=== PATIENT | male | born 1955 | race Caucasian/White ===

== ENCOUNTER 2021-04-18 07:47 | Outpatient (CLI) | payer MEDICARE, SELFPAY ==
--- NOTE | 2021-04-18 16:05 | WPDPFTINT ---
PFT Procedure Performed PFT Procedure Performed Spirometry with Pre/Post Bronchodilator Plethysmography (Lung Vol) Diffusing Cap (DLCO) Flow Vol Loop PFT Interpretation This is a pulmonary function test with pre and post-bronchodilator spirometry, plethysmography and diffusing capacity. The test was performed and results interpreted in accordance with the 2019 and 2005 ATS/ERS Task Force guidelines respectively using the Global Lung Function Initiative-2012 reference equations. Patient demonstrated good effort and cooperation. Reproducibility criteria were met. The quality of the pre bronchodilator spirometry maneuver was Grade A and post bronchodilator spirometry maneuver was Grade A. Findings: Spirometry: there is decreased maximal expiratory airflow at all lung volumes with concave expiratory flow tracing. The contour the inspiratory flow tracing is normal. The pre bronchodilator FVC is 3.29 L, 70% predicted. The pre bronchodilator FEV1 is 1.43 L, 40% predicted. The FEV1: FVC ratio is 43%. The post bronchodilator FVC is 3.30 L, representing no change. The post bronchodilator FEV1 is 1.56 L, representing a 10% increase. The post bronchodilator FEV1: FVC ratio is 47%. Plethysmography: The total lung capacity is 7.92 L, 107% predicted. Functional residual capacity is 4.77 L, 121% predicted. The residual volume is 4.63 L, 185% predicted. Diffusion capacity: The absolute diffusion capacity is 19.1, 69% predicted. The diffusing capacity corrected for alveolar volume is 3.88, 99% predicted. Impression: There is a severe obstructive abnormality without significant improvement after inhaling a single dose of albuterol. The increase in residual volume is consistent with air trapping from an obstructive abnormality. The absolute diffusing capacity is moderately decreased and normalizes when corrected for alveolar volume. Impression: There is a moderately severe restrictive ventilatory abnormality. The spirometry is normal without evidence of an obstructive abnormality. There is no significant improvement after inhaling a single dose of albuterol. The absolute diffusing capacity is mildly decreased and normalizes when corrected for alveolar volume. There are no prior studies for comparison
== END 2021-04-18 07:48 | disposition home or self-care (01) ==
LOC: ANHPFT 07:52
PROVIDERS: PCP Family Medicine; Visit Provider Nurse Practitioner Family
DX: J44.9 Chronic obstructive pulmonary disease, unspecified (principal); R94.2 Abnormal results of pulmonary function studies
CPT/HCPCS: 94060; 94726; 94729

== ENCOUNTER 2022-05-05 15:18 | Outpatient (CLI) | payer MEDICARE, SELFPAY ==
--- NOTE | ~2022-05-05 | CT_ITS ---
EXAMINATION: CTA chest PE protocol DATE: 05/05/2022 15:49 INDICATION: Shortness of breath TECHNIQUE: Computed tomography angiography (CTA) of the chest was performed with 100 mL Omnipaque-350 intravenous contrast timed to evaluate the pulmonary arteries. Coronal maximum intensity projection 3D-reconstructions were created by the technologist. Automated exposure control and iterative reconst ruction technique were employed. Exam dose: 438.93 mGy-cm total exam DLP. COMPARISON: None. FINDINGS: There is moderate contrast opacification of the pulmonary arteries and no evidence of pulmo nary embolism. Cardiomegaly. No pericardial effusion. There bilateral pleural effusions, moderate on the right, mild on the left. There is some pleural flu id in the minor and right greater fissure. There is compressive atelectasis primarily involving the l ower lobes, right greater than left. The ascending thoracic aorta measures up to 4.6 cm diameter, mid aortic arch 3.1 cm diameter, descend ing thoracic aorta 3 cm diameter. No enlarged hilar or mediastinal lymph nodes. There are calcified right hilar and subcarinal nodes an d right lower lobe calcified pulmonary granuloma, consistent with old pulmonary granulomatous disease . Multiple old healed right rib fractures. Likely old compression fracture deformities of the thoracic spine. Degenerative disc disease of the l ower cervical spine, diffuse idiopathic skeletal hyperostosis of the thoracic spine. IMPRESSION: No evidence of pulmonary embolism Congestive heart failure, bilateral pleural effusions, pulmonary interlobular septal prominence, cons istent with pulmonary edema Bilateral lower lobe compressive atelectasis, right greater than left Thoracic aortic aneurysm Probable old compression fractures of the thoracic spine. Multiple old right rib fractures Degenerative changes of cervical, thoracic and lumbar spine. Reviewed, dictated and finalized at [facility]. Reviewed, dictated and finalized at location B. [facility] IMPRESSION: No evidence of pulmonary embolism Congestive heart failure, bilateral pleural effusions, pulmonary interlobular s eptal prominence, consistent with pulmonary edema Bilateral lower lobe compressive atelectasis, right greater than left Thoracic aortic aneurysm Probable old compression fractures of the thoracic spine. Multiple old right ri b fractures Degenerative changes of cervical, thoracic and lumbar spine.
[2022-05-05 15:39] LABS: Estimated Glomerular Filt Rate > 60
== END 2022-05-05 15:19 | disposition home or self-care (01) ==
LOC: ANHIMG 15:19
PROVIDERS: PCP Family Medicine; Visit Provider Nurse Practitioner Family
DX: R06.02 Shortness of breath (principal); I71.20 Thoracic aortic aneurysm, without rupture, unspecified; I50.9 Heart failure, unspecified
CPT/HCPCS: 71275; Q9967

== ENCOUNTER 2023-03-04 14:34 | Outpatient (CLI) | payer MEDICARE, SELFPAY ==
[2023-03-04 16:25] LABS: Hematocrit 37.2 % (42.0-52.0); Hemoglobin 11.7 g/dL (14.0-18.0); Mean Corpuscular HGB Conc 31.5 g/dl (32-36); Mean Corpuscular Hemoglobin 29.3 pg (26-34); Mean Corpuscular Volume 93.2 fl (80-100); Mean Platelet Volume 9.7 fl (7.4-10.4); Platelet Count Result 493 k/mm3 (150-375); Red Blood Count 3.99 M/mm3 (4.6-6.20); White Blood Count 9.2 K/mm3 (4.5-10.0)
[2023-03-04 17:07] LABS: Erythrocyte Sedimentation Rate 57 mm/hr (0-20)
[2023-03-04 17:26] LABS: Alanine Aminotransferase 12 U/L (6-50); Albumin Level 2.6 g/dL (3.5-5.1); Alkaline Phosphatase 78 U/L (38-126); Anion Gap 3 mmol/L (8-16); Aspartate Amino Transferase 25 U/L (17-59); Bilirubin,Total 0.5 mg/dL (0.2-1.3); Blood Urea Nitrogen 10 mg/dL (9-20); CRP 8.2 mg/dL (<1.0); Calcium 7.7 mg/dL (8.4-10.2); Carbon Dioxide 30 mmol/L (22-30); Chloride 101 mmol/L (98-107); Estimated Glomerular Filt Rate > 60; Glucose 113 mg/dL (65-110); Potassium 3.8 mmol/L (3.4-5.0); Sodium 134 mmol/L (137-145)
[2023-03-04 17:56] LABS: Hepatitis B Surface Anti Res Negative
[2023-03-04 18:00] LABS: Carcinoembryonic Antigen 6.3 ng/mL (0.0-3.0)
[2023-03-04 18:38] LABS: Folic Acid 7.5 ng/mL (2.76->20)
[2023-03-09 02:56] LABS: Hepatitis A Antibody Total Nonreactive (Nonreactive)
[2023-03-09 09:15] LABS: Alpha-1-Antitrypsin, QN >300 mg/dL (83-199); Ceruloplasmin 36 mg/dL (18-36)
[2023-03-09 14:49] LABS: CA 19-9 9 U/mL (<34)
[2023-03-09 21:48] LABS: LKM 1 Antibody <=20.0 U (<=20.0)
[2023-03-11 11:56] LABS: Actin Antibody (IgG) <20 U (<20)
[2023-03-11 15:43] LABS: Alpha Fetoprotein Tumor Marker 1.7 ng/mL (<6.1)
[2023-03-11 23:36] LABS: ALT 6 U/L (9-46); Alpha-2-Macroglobulin 243 mg/dL (106-279); Apolipoprotein A1 111 mg/dL (94-176); Fibrosis Score 0.19; Fibrosis Stage F0; GGT 12 U/L (3-70); Haptoglobin 439 mg/dL (43-212); Necroinflammat Act Grade A0; Total Bilirubin 0.3 mg/dL (0.2-1.2)
[2023-03-12 10:52] LABS: Mitochondrial (M2) Ab (IgG) 20.4 U (<=20.0)
== END 2023-03-04 14:35 | disposition home or self-care (01) ==
PROVIDERS: PCP Family Medicine; Visit Provider Nurse Practitioner
DX: D47.2 Monoclonal gammopathy (principal); F10.10 Alcohol abuse, uncomplicated; I50.9 Heart failure, unspecified; K66.8 Other specified disorders of peritoneum; M62.50 Muscle wasting and atrophy, not elsewhere classified, unspecified site; R16.0 Hepatomegaly, not elsewhere classified; R18.8 Other ascites; R26.89 Other abnormalities of gait and mobility; K74.60 Unspecified cirrhosis of liver
CPT/HCPCS: 36415; 80053; 81596; 82103; 82105; 82378; 82390; 82607; 82728; 82746; 83520; 85027; 85652; 86038; 86140; 86301; 86364; 86376; 86706; 86708

== ENCOUNTER 2023-05-19 02:48 | Day surgery (SDC) | payer MEDICARE, SELFPAY ==
[2023-05-12 14:08] VITALS: BMI 19.2
--- NOTE | 2023-05-17 09:32 | SUR.PREOP ---
Patient called regarding upcoming procedure. Patient in an appointment and will call back.
--- NOTE | 2023-05-17 10:26 | SUR.PREOP ---
Patient called regarding upcoming procedure. Spoke spouse and reviewed preop instructions, appointment times, and procedure prep.
[2023-05-19 09:44] VITALS: BP 123/73; PULSE 59; RESP 18; TEMP 36.5; O2SAT 100
[2023-05-19] MEDS: LACTATED RINGERS 1,000 ML 150 ML IV CONT (09:54)
--- NOTE | 2023-05-19 10:25 | WPDANESEPPF ---
Anes - Initial Pre Proc Eval Procedure: Operation Date: 05/19/23 11:00 Proposed Procedures p Esophagogastroduodenoscopy - Gary Thomason MD Date/Time: 05/19/23 10:25 Surgeon: Gary Thomason MD Pre Op Diagnosis: cirrhosis of liver,Alcohol abuse,Heart failure Patient Data Age: 68 Gender: M Height: 1.83 m Weight: 67.2 kg Last Vital Signs Temp 36.5 C 05/19/23 09:44 Pulse 59 L 05/19/23 09:44 Resp 18 05/19/23 09:44 BP 123/73 05/19/23 09:44 Pulse Ox 100 05/19/23 09:44 O2 Del Method Room Air 05/19/23 09:44 Allergies Allergy/AdvReac Type Severity Reaction Status Date / Time No Known Allergies Allergy Verified 05/19/23 09:43 Home Medications Medication Instructions Recorded Confirmed Type rivaroxaban 20 mg tablet (Xarelto) 20 mg PO DAILY #30 tabs 06/18/22 05/19/23 Rx albuterol sulfate 90 mcg/actuation See Rx Instructions .Route 07/20/22 05/12/23 Rx aerosol inhaler .COMPLEX #8.5 ea amiodarone 200 mg tablet 200 mg PO DAILY 08/13/22 05/12/23 History budesonide 160 mcg-glycopyr 9 2 inh inhalation BID #10.7 grams 08/27/22 05/12/23 Rx mcg-formot 4.8 mcg/actuation HFA inhaler (Breztri Aerosphere) spironolactone 100 mg tablet 100 mg PO DAILY #30 tabs 03/04/23 05/12/23 Rx (Aldactone) atorvastatin 40 mg tablet 40 mg PO DAILY #90 tabs 04/23/23 05/12/23 Rx baclofen 5 mg tablet 5 mg PO QHS #30 tabs 04/27/23 05/12/23 Rx bupropion HCl 150 mg 24 hr tablet, See Rx Instructions .Route 04/27/23 05/12/23 Rx extended release .COMPLEX #180 tabs pantoprazole 40 mg tablet,delayed 40 mg PO DAILY 04/27/23 05/12/23 History release sulfamethoxazole 800 1 tablet PO DAILY 04/27/23 05/12/23 History mg-trimethoprim 160 mg tablet linaclotide 145 mcg capsule 145 mcg PO DAILY #30 caps 04/29/23 05/12/23 Rx (Linzess) sertraline 50 mg tablet See Rx Instructions .Route 04/29/23 05/12/23 Rx .COMPLEX #90 tabs midodrine 10 mg tablet 10 mg PO TID #90 tabs 05/03/23 05/12/23 Rx furosemide 20 mg tablet 20 mg PO DAILY 05/12/23 05/12/23 History hydrocodone 5 mg-acetaminophen 325 1 tablet PO Q8H pain 05/12/23 05/12/23 History mg tablet levothyroxine 25 mcg tablet 25 mcg PO DAILY 05/12/23 05/12/23 History thiamine HCl (vitamin B1) 100 mg 100 mg PO DAILY 05/12/23 05/12/23 History tablet Patient hx anesthesia problems: none Family hx anesthesia problems: none Results Review: All pre-operative results and documents have been reviewed as part of the pre-operative evaluation. [facility] Past Medical History Medical History Achilles tendonitis Arthritis Ascites Bibasilar crackles BMI (body mass index) 20.0-29.9 BMI 26.0-26.9,adult BMI 27.0-27.9,adult Closed left hip fracture COPD (chronic obstructive pulmonary disease) Elevated CEA Fracture of left hip History of cardioversion Liver mass Mass of omentum Muscle atrophy Narcotic bowel syndrome PVD (peripheral vascular disease) Surgical History Surgical History History of abdominal paracentesis Family History Family History Father Mother No problems noted. Sibling Epilepsy Social History Social History Smoking packs per day: 0.5 Smoking cigarettes per day: 10.0 Years smoked: 50 Smoking pack-years: 25.00 Smoking status: Current every day smoker Tobacco type: cigarettes Second hand tobacco smoke exposure: Yes Alcohol intake: current Drinks per week: 6 Alcohol use details: 6 PK OR MORE A DAY Substance use: current Substance use type: does not use Other substance usage details: edibles Lack of Transportation: No Lack of Food: Never True Current Housing: I Have Housing Concerned About Future Housing: No Difficulty Paying Gas/Electric
--- NOTE | 2023-05-19 10:37 | WPDHPUPDATE1 ---
History and Physical Update Update Date/Time: 05/19/23 10:37 History and Physical has been reviewed, including an updated exam of the patient. There are NO changes in the patient's condition. Risks, benefits, and alternatives have been discussed and questions answered. Patient agrees to proceed with procedure.
[2023-05-19 10:59] VITALS: BP 108/74; PULSE 61; RESP 17; O2SAT 100
[2023-05-19 11:09] VITALS: BP 113/77; PULSE 60; RESP 14; O2SAT 100
[2023-05-19 11:19] VITALS: BP 107/68; PULSE 60; RESP 15; O2SAT 100
== END 2023-05-19 11:20 | disposition home or self-care (01) ==
PROVIDERS: PCP Family Medicine; Visit Provider Internal Medicine Gastroenterology
PROC: 0DJ08ZZ Inspection of Upper Intestinal Tract, Via Natural or Artificial Opening Endoscopic (ICD-10-PCS; CPT 43235; principal; 2023-05-19 11:00)
DX: K74.60 Unspecified cirrhosis of liver (principal); F10.10 Alcohol abuse, uncomplicated; I50.9 Heart failure, unspecified; K21.9 Gastro-esophageal reflux disease without esophagitis; D64.89 Other specified anemias; I48.91 Unspecified atrial fibrillation; K63.89 Other specified diseases of intestine; K59.00 Constipation, unspecified; J44.9 Chronic obstructive pulmonary disease, unspecified; F17.210 Nicotine dependence, cigarettes, uncomplicated; I27.20 Pulmonary hypertension, unspecified; Z79.01 Long term (current) use of anticoagulants; Z79.51 Long term (current) use of inhaled steroids; Z79.891 Long term (current) use of opiate analgesic; Z86.79 Personal history of other diseases of the circulatory system; Z85.89 Personal history of malignant neoplasm of other organs and systems
CPT/HCPCS: 43235; J2704; J7120

== ENCOUNTER 2023-05-25 14:24 | Outpatient (CLI) | payer MEDICARE, SELFPAY ==
[2023-05-25 15:07] LABS: Basophils Absolute Auto 0.1 K/mm3 (0.0-0.1); Basophils Percent Auto 0.7 % (0.2-1.2); Eosinophils Absolute Auto 0.1 K/mm3 (0-0.3); Eosinophils Percent Auto 1.5 % (0-4.4); Hematocrit 39.3 % (42.0-52.0); Hemoglobin 12.6 g/dL (14.0-18.0); Immature Granulocyte Absolute 0.04 K/mm3 (0.00-0.031); Immature Granulocyte Percent A 0.5 % (0-0.5); Lymphocytes Absolute Auto 1.73 K/mm3 (0.9-3.2); Lymphocytes Percent Auto 20.9 % (18.3-44.2); Mean Corpuscular HGB Conc 32.1 g/dl (32-36); Mean Corpuscular Hemoglobin 30.9 pg (26-34); Mean Corpuscular Volume 96.3 fl (80-100); Mean Platelet Volume 9.7 fl (7.4-10.4); Monocytes Absolute Auto 1.1 K/mm3 (0.1-0.6); Monocytes Percent Auto 12.9 % (2.6-8.5); Neutrophils Absolute Auto 5.3 K/mm3 (1.3-6.7); Neutrophils Percent Auto 63.5 % (45.5-73.1); Platelet Count Result 461 k/mm3 (150-375); Red Blood Count 4.08 M/mm3 (4.6-6.20); Red Cell Distribution Width 18.2 % (11.5-14.5); White Blood Count 8.3 K/mm3 (4.5-10.0)
[2023-05-25 15:17] LABS: Alanine Aminotransferase 17 U/L (6-50); Albumin Level 3.1 g/dL (3.5-5.1); Alkaline Phosphatase 85 U/L (38-126); Amylase 102 U/L (30-110); Anion Gap 7 mmol/L (8-16); Aspartate Amino Transferase 28 U/L (17-59); Bilirubin,Total 0.3 mg/dL (0.2-1.3); Blood Urea Nitrogen 22 mg/dL (9-20); Calcium 8.6 mg/dL (8.4-10.2); Carbon Dioxide 27 mmol/L (22-30); Chloride 100 mmol/L (98-107); Estimated Glomerular Filt Rate > 60; Glucose 81 mg/dL (65-110); Lipase 83 U/L (23-300); Potassium 4.2 mmol/L (3.4-5.0); Sodium 134 mmol/L (137-145)
[2023-05-25 15:52] LABS: Prostate Specific Antigen 0.1 ng/mL (< OR = 4.0)
== END 2023-05-25 14:25 | disposition home or self-care (01) ==
PROVIDERS: PCP Family Medicine; Visit Provider Nurse Practitioner Family
DX: Z12.5 Encounter for screening for malignant neoplasm of prostate (principal); E03.9 Hypothyroidism, unspecified; K74.60 Unspecified cirrhosis of liver; Z68.29 Body mass index [BMI] 29.0-29.9, adult; Z09 Encounter for follow-up examination after completed treatment for conditions other than malignant neoplasm
CPT/HCPCS: 36415; 80053; 82150; 83690; 84153; 84436; 84443; 85025; G0103

== ENCOUNTER 2023-07-23 15:00 | Outpatient (CLI) | payer MEDICARE, SELFPAY ==
[2023-07-23 16:50] LABS: T4 Thyroxine 9.21 ug/dL (5.53-11.0)
[2023-07-23 20:33] LABS: Anion Gap 1 mmol/L (8-16); Blood Urea Nitrogen 33 mg/dL (9-20); Calcium 8.2 mg/dL (8.4-10.2); Carbon Dioxide 26 mmol/L (22-30); Chloride 102 mmol/L (98-107); Estimated Glomerular Filt Rate > 60; Glucose 82 mg/dL (65-110); Potassium 4.4 mmol/L (3.4-5.0); Sodium 129 mmol/L (137-145)
== END 2023-07-23 15:01 | disposition home or self-care (01) ==
PROVIDERS: PCP Family Medicine; Visit Provider Nurse Practitioner Family
DX: E03.9 Hypothyroidism, unspecified (principal); E87.1 Hypo-osmolality and hyponatremia; I10 Essential (primary) hypertension
CPT/HCPCS: 36415; 80048; 84436; 84443

== ENCOUNTER 2023-09-21 08:36 | Outpatient (CLI) | payer MEDICARE, SELFPAY ==
--- NOTE | ~2023-09-21 | US_ITS ---
US right upper quadrant INDICATION: Cirrhosis PROCEDURE: Realtime right upper abdominal ultrasound. COMPARISON: No prior studies for comparison. FINDINGS: The pancreas is normal without focal mass or pancreatic ductal dilation. Liver echotexture is heterogeneous. There is nodular surface, compatible with cirrhosis. There is ascites. There is ri ght pleural effusion. No focal hepatic mass is seen. Gallbladder is contracted limiting evaluation fo r stones. There is normal directional flow in the portal vein. The gallbladder is normal without stones, gallbladder wall thickening or pericholecystic fluid. Comm on bile duct measures 3 mm. No sonographic Rangel's sign. IMPRESSION: 1: Cirrhosis of the liver. 2: Ascites. 3: Right pleural effusion. Reviewed, dictated and finalized at location B.
[2023-09-21 09:54] LABS: Albumin Level 3.1 g/dL (3.5-5.1)
== END 2023-09-21 08:37 | disposition home or self-care (01) ==
PROVIDERS: Nurse Practitioner Family; PCP Family Medicine; Visit Provider Internal Medicine Gastroenterology
DX: K74.60 Unspecified cirrhosis of liver (principal); R18.8 Other ascites; F10.10 Alcohol abuse, uncomplicated; I50.9 Heart failure, unspecified; J90 Pleural effusion, not elsewhere classified
CPT/HCPCS: 36415; 76705; 82040

== ENCOUNTER 2023-09-24 09:13 | Outpatient (CLI) | payer MEDICARE, SELFPAY ==
--- NOTE | ~2023-09-24 | US_ITS ---
EXAMINATION: US paracentesis abd w/image DATE: 09/24/2023 11:21 INDICATION: Ascites. TECHNIQUE: The procedure and its risks, benefits, and alternatives were discussed with the patient. P otential risks discussed included bleeding and infection. The skin was prepped and draped in sterile fashion. 1% lidocaine was used for local anesthesia. Under ultrasound guidance, a 5 Fr catheter with trochar was advanced into the ascites in the right lower quadrant. Fluid was aspirated. The catheter was removed, and a dressing was applied. There were no immediate complications. FINDINGS: Ultrasound images demonstrate ascites and the catheter within the fluid. IMPRESSION: 1. Successful ultrasound-guided paracentesis yielding right mL of 2750 fluid. Reviewed, dictated and finalized at location A.
[2023-09-24 10:04] LABS: Hematocrit 43.1 % (42.0-52.0); Hemoglobin 13.8 g/dL (14.0-18.0); Mean Corpuscular Hemoglobin 30.2 pg (26-34); Mean Corpuscular Volume 94.3 fl (80-100); Mean Platelet Volume 10.2 fl (7.4-10.4); Platelet Count Result 445 k/mm3 (150-375); Red Blood Count 4.57 M/mm3 (4.6-6.20); Red Cell Distribution Width 14.9 % (11.5-14.5); White Blood Count 10.8 K/mm3 (4.5-10.0)
[2023-09-24 10:15] LABS: Alanine Aminotransferase 19 U/L (6-50); Albumin Level 3.1 g/dL (3.5-5.1); Alkaline Phosphatase 95 U/L (38-126); Anion Gap 1 mmol/L (4-12); Aspartate Amino Transferase 33 U/L (17-59); Bilirubin,Total 0.3 mg/dL (0.2-1.3); Blood Urea Nitrogen 33 mg/dL (9-20); Calcium 8.8 mg/dL (8.4-10.2); Carbon Dioxide 29 mmol/L (22-30); Chloride 106 mmol/L (98-107); Estimated Glomerular Filt Rate > 60; Glucose 105 mg/dL (65-110); Potassium 5.2 mmol/L (3.4-5.0); Sodium 136 mmol/L (137-145)
[2023-09-24 10:18] LABS: INR 0.9; Prothrombin Time 12.7 Seconds (11.1-14.7)
== END 2023-09-24 09:14 | disposition home or self-care (01) ==
PROVIDERS: PCP Family Medicine; Visit Provider Internal Medicine Gastroenterology
DX: K74.60 Unspecified cirrhosis of liver (principal); F10.10 Alcohol abuse, uncomplicated; I50.9 Heart failure, unspecified; Z68.29 Body mass index [BMI] 29.0-29.9, adult; R18.8 Other ascites
CPT/HCPCS: 36415; 49083; 80053; 85027; 85610

== ENCOUNTER 2024-01-14 14:54 | Outpatient (CLI) | payer MEDICARE, SELFPAY ==
[2024-01-14 15:27] LABS: Basophils Absolute Auto 0.1 K/mm3 (0.0-0.1); Basophils Percent Auto 0.6 % (0.2-1.2); Eosinophils Absolute Auto 0.4 K/mm3 (0-0.3); Eosinophils Percent Auto 2.1 % (0-4.4); Hematocrit 43.6 % (42.0-52.0); Hemoglobin 14.3 g/dL (14.0-18.0); Immature Granulocyte Absolute 0.22 K/mm3 (0.00-0.031); Immature Granulocyte Percent A 1.3 % (0-0.5); Lymphocytes Absolute Auto 1.51 K/mm3 (0.9-3.2); Lymphocytes Percent Auto 8.6 % (18.3-44.2); Mean Corpuscular HGB Conc 32.8 g/dl (32-36); Mean Corpuscular Hemoglobin 29.8 pg (26-34); Mean Corpuscular Volume 90.8 fl (80-100); Mean Platelet Volume 9.5 fl (7.4-10.4); Monocytes Absolute Auto 1.5 K/mm3 (0.1-0.6); Monocytes Percent Auto 8.8 % (2.6-8.5); Neutrophils Absolute Auto 13.8 K/mm3 (1.3-6.7); Neutrophils Percent Auto 78.6 % (45.5-73.1); Platelet Count Result 523 k/mm3 (150-375); Red Cell Distribution Width 15.5 % (11.5-14.5); White Blood Count 17.5 K/mm3 (4.5-10.0)
[2024-01-14 15:38] LABS: Alanine Aminotransferase 18 U/L (6-50); Albumin Level 3.2 g/dL (3.5-5.1); Alkaline Phosphatase 91 U/L (38-126); Anion Gap 4 mmol/L (4-12); Aspartate Amino Transferase 29 U/L (17-59); Bilirubin,Total 0.2 mg/dL (0.2-1.3); Blood Urea Nitrogen 27 mg/dL (9-20); Calcium 8.6 mg/dL (8.4-10.2); Carbon Dioxide 29 mmol/L (22-30); Chloride 103 mmol/L (98-107); Estimated Glomerular Filt Rate > 60; Glucose 115 mg/dL (65-110); Potassium 4.3 mmol/L (3.4-5.0); Sodium 136 mmol/L (137-145)
[2024-01-14 16:11] LABS: Free T4 Free Thyroxine 1.63 ng/mL (0.78-2.19); Vitamin D 25 Hydroxy 18.8 ng/mL
[2024-01-14 16:34] LABS: Vitamin B12 > 1000.0 pg/mL (239-931)
== END 2024-01-14 14:55 | disposition home or self-care (01) ==
LOC: ANHLAB 14:58
PROVIDERS: PCP Family Medicine; Visit Provider Physician Assistant Medical
DX: E03.9 Hypothyroidism, unspecified (principal); E55.9 Vitamin D deficiency, unspecified; E87.1 Hypo-osmolality and hyponatremia; F10.10 Alcohol abuse, uncomplicated
CPT/HCPCS: 36415; 80053; 82306; 82607; 84439; 84443; 85025

== ENCOUNTER 2024-03-10 13:53 | Outpatient (CLI) | payer MEDICARE, SELFPAY ==
--- NOTE | ~2024-03-10 | US_ITS ---
EXAMINATION: US thyroid DATE: 03/10/2024 14:20 INDICATION: Nontoxic single thyroid nodule. TECHNIQUE: Multiple ultrasound images of the thyroid were obtained. COMPARISON: None. FINDINGS: The right thyroid lobe measures 4.4 x 2.4 x 1.8 cm. The left thyroid lobe measures 3.4 x 2.3 x 1.6 c m. The thyroid demonstrates coarsened echotexture. In the right thyroid lobe, there is a 1.3 cm cyst ic nodule (TI-RADS TR1). IMPRESSION: 1. Benign cyst in right thyroid lobe. No follow-up is needed. Reviewed, dictated and finalized at location A.
== END 2024-03-10 13:54 | disposition home or self-care (01) ==
LOC: MICIMG 13:53
PROVIDERS: PCP Family Medicine; Visit Provider Nurse Practitioner Family
DX: E04.1 Nontoxic single thyroid nodule (principal)
CPT/HCPCS: 76536

== ENCOUNTER 2024-03-10 14:20 | Outpatient (CLI) | payer MEDICARE, SELFPAY ==
[2024-03-10 15:29] LABS: T4 Thyroxine 9.95 ug/dL (5.53-11.0)
== END 2024-03-10 14:21 | disposition home or self-care (01) ==
LOC: ANHLAB 14:23
PROVIDERS: PCP Family Medicine; Visit Provider Nurse Practitioner Family
DX: E03.9 Hypothyroidism, unspecified (principal); E55.9 Vitamin D deficiency, unspecified
CPT/HCPCS: 36415; 82306; 84436; 84443

== ENCOUNTER 2024-03-31 03:02 | Day surgery (SDC) | payer MEDICARE, SELFPAY ==
[2024-03-24 13:36] VITALS: BMI 24.5
--- NOTE | 2024-03-24 14:43 | PC.NURSE ---
Spoke with (JEFRY) & PATIENT regarding medication XARELTO. Pt. verbalizes understanding that the last dose of XARELTO is to be taken on __03/28/2024 and the Endoscopist will instruct them when to restart after the procedure.
[2024-03-31 07:54] VITALS: BP 99/60; PULSE 63; RESP 18; TEMP 36.6; O2SAT 96; BMI 23.3
[2024-03-31] MEDS: LACTATED RINGERS 1,000 ML 150 ML IV CONT (07:59)
--- NOTE | 2024-03-31 08:43 | WPDANESEPPF ---
Anes - Initial Pre Proc Eval Procedure: Operation Date: 03/31/24 09:00 Proposed Procedures p Screening Colonoscopy - Gary Thomason MD Date/Time: 03/31/24 08:43 Surgeon: Gary Thomason MD Pre Op Diagnosis: Neoplasm screening Patient Data Age: 69 Gender: M Height: 1.83 m Weight: 78.2 kg Last Vital Signs Temp 36.6 C 03/31/24 07:54 Pulse 63 03/31/24 07:54 Resp 18 03/31/24 07:54 BP 99/60 L 03/31/24 07:54 Pulse Ox 96 03/31/24 07:54 O2 Del Method Room Air 03/31/24 07:54 Allergies Allergy/AdvReac Type Severity Reaction Status Date / Time No Known Allergies Allergy Verified 03/31/24 07:51 Home Medications Medication Instructions Recorded Confirmed Type budesonide 160 mcg-glycopyr 9 2 inh inhalation BID #10.7 grams 08/27/22 03/31/24 Rx mcg-formot 4.8 mcg/actuation HFA inhaler (Breztri Aerosphere) furosemide 20 mg tablet 20 mg PO DAILY 05/12/23 03/31/24 History amiodarone 200 mg tablet 100 mg PO DAILY 07/27/23 03/31/24 History linaclotide 145 mcg capsule 145 mcg PO DAILY #30 caps 12/23/23 03/31/24 Rx (Linzess) hydrocodone 5 mg-acetaminophen 325 1 tablet PO Q8H pain #90 tabs 01/10/24 03/31/24 Rx mg tablet ascorbic acid (vitamin C) 1,000 mg 1 g PO DAILY 01/25/24 03/31/24 History tablet ferrous sulfate 325 mg (65 mg 325 mg PO DAILY 01/25/24 03/31/24 History iron) tablet levothyroxine 75 mcg tablet 75 mcg PO DAILY #90 tabs 01/25/24 03/31/24 Rx rivaroxaban 20 mg tablet (Xarelto) 20 mg PO DAILY #30 tabs 02/04/24 03/31/24 Rx albuterol sulfate 90 mcg/actuation See Rx Instructions .Route 03/24/24 03/31/24 History aerosol inhaler .COMPLEX PRN Shortness Of Breath Or Wheezing bupropion HCl 150 mg 24 hr tablet, 150 mg PO BID 03/24/24 03/31/24 History extended release diltiazem HCl 120 mg capsule,24 120 mg PO DAILY 03/24/24 03/31/24 History hr,extended release metoprolol succinate 50 mg 50 mg PO BID 03/24/24 03/31/24 History tablet,extended release 24 hr midodrine 10 mg tablet 10 mg PO TID 03/24/24 03/31/24 History sertraline 50 mg tablet 50 mg PO DAILY 03/24/24 03/24/24 History spironolactone 100 mg tablet 100 mg PO DAILY 03/24/24 03/24/24 History cholecalciferol (vitamin D3) 125 125 mcg PO DAILY #90 caps 03/25/24 03/31/24 Rx mcg (5,000 unit) capsule atorvastatin 40 mg tablet 40 mg PO DAILY #90 tabs 03/27/24 03/31/24 Rx baclofen 10 mg tablet 10 mg PO QHS #90 tabs 03/27/24 03/31/24 Rx ropinirole 1 mg tablet 1 mg PO BID #60 tabs 03/27/24 03/31/24 Rx Patient hx anesthesia problems: none Family hx anesthesia problems: none Results Review: All pre-operative results and documents have been reviewed as part of the pre-operative evaluation. [facility] Past Medical History Medical History Achilles tendonitis Arthritis Ascites Bibasilar crackles BMI (body mass index) 20.0-29.9 BMI 26.0-26.9,adult BMI 27.0-27.9,adult Closed left hip fracture COPD (chronic obstructive pulmonary disease) Elevated CEA Fracture of left hip History of cardioversion Liver mass Mass of omentum Muscle atrophy Narcotic bowel syndrome PVD (peripheral vascular disease) Surgical History Surgical History History of abdominal paracentesis Family History Family History Father Mother No problems noted. Sibling Epilepsy Social History Social History Smoking packs per day: 0.5 Smoking cigarettes per day: 10.0 Years smoked: 50 Smoking pack-years: 25.00 Smoking status: Current every day smoker Tobacco type: cigarettes Second hand tobacco smoke exposure: Yes Alcohol intake: current Drinks per week: 2 Alcohol use details: DRINKS Substance use: never Substance use type: does not use Other substance usage details: edibles Lack of Transportation: No Lack of Food: Never True Current Housing: I Have Housing Concerned About Future Housing: No Difficulty Paying Gas/Electric Bills: No Difficulty Paying for Meds: No Currently Unemployed: No Education: High School Diploma/GED Difficulty w/ Childcare or Family Care: No Living arrangements: with family Additional living arrangements comments: Pt lives with Mona Occupation/Education: retired Additional occupation/education comments: [employer] Gender identity (if verbalized by the patient): Male Sexual Orientation (if Verbalized by the Patient): Straight or Heterosexual Spiritual care concerns: No Agree to blood products: Yes Anes - Eval Final PreProcedure Day of Procedure 03/31/24 08:43 Patient weight: normal Heart: regular rate and rhythm Lungs: decreased breath sounds Airway: Mallampati scale class II Neurological: alert and oriented Last oral intake: >/= 8 hours ASA classification: IV Emergent: no Anesthetic plan: proceed Anesthesia type and monitoring: general GIVS and standard monitoring Results Review: All pre-operative results and documents have been reviewed as part of the pre-operative evaluation. Informed Consent: The patient's anesthetic plan and its attendant risks and benefits were discussed with the patient/family/POA. Questions were solicited and answers provided to the satisfaction of the patient/family/POA.
--- NOTE | 2024-03-31 08:55 | PM.HPGS ---
History of Present Illness History of Present Illness Consent: Risks, benefits, and alternatives have been discussed and questions answered. Patient agrees to proceed with procedure. Chief complaint: Neoplasm screening Narrative: King Lee is a 69 year old male here for first screening colonoscopy Review of Systems Review of Systems: All systems reviewed & are unremarkable except as noted in HPI and below PMFSH Past Medical History Medical History Achilles tendonitis Arthritis Ascites Bibasilar crackles BMI (body mass index) 20.0-29.9 BMI 26.0-26.9,adult BMI 27.0-27.9,adult Closed left hip fracture COPD (chronic obstructive pulmonary disease) Elevated CEA Fracture of left hip History of cardioversion Liver mass Mass of omentum Muscle atrophy Narcotic bowel syndrome PVD (peripheral vascular disease) Surgical History Surgical History History of abdominal paracentesis Family History Family History Father Mother No problems noted. Sibling Epilepsy Social History Social History Smoking packs per day: 0.5 Smoking cigarettes per day: 10.0 Years smoked: 50 Smoking pack-years: 25.00 Smoking status: Current every day smoker Tobacco type: cigarettes Second hand tobacco smoke exposure: Yes Alcohol intake: current Drinks per week: 2 Alcohol use details: DRINKS Substance use: never Substance use type: does not use Other substance usage details: edibles Lack of Transportation: No Lack of Food: Never True Current Housing: I Have Housing Concerned About Future Housing: No Difficulty Paying Gas/Electric Bills: No Difficulty Paying for Meds: No Currently Unemployed: No Education: High School Diploma/GED Difficulty w/ Childcare or Family Care: No Living arrangements: with family Additional living arrangements comments: Pt lives with Mona Occupation/Education: retired Additional occupation/education comments: [employer] Gender identity (if verbalized by the patient): Male Sexual Orientation (if Verbalized by the Patient): Straight or Heterosexual Spiritual care concerns: No Agree to blood products: Yes Meds Home Medications and Allergies Home Medications Medication Instructions Recorded Confirmed Type budesonide 160 mcg-glycopyr 9 2 inh inhalation BID #10.7 grams 08/27/22 03/31/24 Rx mcg-formot 4.8 mcg/actuation HFA inhaler (Breztri Aerosphere) furosemide 20 mg tablet 20 mg PO DAILY 05/12/23 03/31/24 History amiodarone 200 mg tablet 100 mg PO DAILY 07/27/23 03/31/24 History linaclotide 145 mcg capsule 145 mcg PO DAILY #30 caps 12/23/23 03/31/24 Rx (Linzess) hydrocodone 5 mg-acetaminophen 325 1 tablet PO Q8H pain #90 tabs 01/10/24 03/31/24 Rx mg tablet ascorbic acid (vitamin C) 1,000 mg 1 g PO DAILY 01/25/24 03/31/24 History tablet ferrous sulfate 325 mg (65 mg 325 mg PO DAILY 01/25/24 03/31/24 History iron) tablet levothyroxine 75 mcg tablet 75 mcg PO DAILY #90 tabs 01/25/24 03/31/24 Rx rivaroxaban 20 mg tablet (Xarelto) 20 mg PO DAILY #30 tabs 02/04/24 03/31/24 Rx albuterol sulfate 90 mcg/actuation See Rx Instructions .Route 03/24/24 03/31/24 History aerosol inhaler .COMPLEX PRN Shortness Of Breath Or Wheezing bupropion HCl 150 mg 24 hr tablet, 150 mg PO BID 03/24/24 03/31/24 History extended release diltiazem HCl 120 mg capsule,24 120 mg PO DAILY 03/24/24 03/31/24 History hr,extended release metoprolol succinate 50 mg 50 mg PO BID 03/24/24 03/31/24 History tablet,extended release 24 hr midodrine 10 mg tablet 10 mg PO TID 03/24/24 03/31/24 History sertraline 50 mg tablet 50 mg PO DAILY 03/24/24 03/24/24 History spironolactone 100 mg tablet 100 mg PO DAILY 03/24/24 03/24/24 History cholecalciferol (vitamin D3) 125 125 mcg PO DAILY #90 caps 03/25/24 03/31/24 Rx mcg (5,000 unit) capsule atorvastatin 40 mg tablet 40 mg PO DAILY #90 tabs 03/27/24 03/31/24 Rx baclofen 10 mg tablet 10 mg PO QHS #90 tabs 03/27/24 03/31/24 Rx ropinirole 1 mg tablet 1 mg PO BID #60 tabs 03/27/24 03/31/24 Rx Allergies Allergy/AdvReac Type Severity Reaction Status Date / Time No Known Allergies Allergy Verified 03/31/24 07:51 Vital Signs Vital Signs - 24 hr 03/31/24 07:54 Temperature 97.8 F Pulse Rate 63 Respiratory Rate 18 Blood Pressure 99/60 L Pulse Oximetry 96 Oxygen Delivery Room Air Exam Const: General: comfortable and no acute distress HENMT: Face/Nose/Sinus: Normal nares present Eyes: General: appearance normal, both eyes and all related structures Neck: Neck: no JVD Resp: Auscultation: clear to auscultation bilaterally Cardio: Rate: regular rate Rhythm: regular rhythm GI: Inspection: non-distended GI Palp: Yes Soft to palpation Skin: General skin exam: normal color Neuro: General: gait normal Speech: normal speech Extrem: General: normal to inspection Psych: Mental Status: mental status grossly normal Assessment and Plan Assessment and plan (1) Screening for colon cancer: Code(s): Z12.11 - Encounter for screening for malignant neoplasm of colon Status: Acute Assessment and Plan: colonoscopy
[2024-03-31 09:27] VITALS: BP 109/47; PULSE 53; RESP 22; O2SAT 100
[2024-03-31 09:37] VITALS: BP 106/69; PULSE 65; RESP 23; O2SAT 100
[2024-03-31 09:47] VITALS: BP 114/69; PULSE 71; RESP 19; O2SAT 98
--- NOTE | 2024-03-31 10:06 | SUR.PHASEII ---
Patient instructed to resume Xarelto in [address] Dougherty's verbal order. Patient verbalized understanding of instructions.
== END 2024-03-31 10:07 | disposition home or self-care (01) ==
PROVIDERS: PCP Family Medicine; Referring Provider Nurse Practitioner Family; Visit Provider Internal Medicine Gastroenterology
PROC: 0DJD8ZZ Inspection of Lower Intestinal Tract, Via Natural or Artificial Opening Endoscopic (ICD-10-PCS; CPT 45378; principal; 2024-03-31 09:00)
DX: Z12.11 Encounter for screening for malignant neoplasm of colon (principal); D12.2 Benign neoplasm of ascending colon; D12.3 Benign neoplasm of transverse colon; D12.4 Benign neoplasm of descending colon; J44.9 Chronic obstructive pulmonary disease, unspecified; I73.9 Peripheral vascular disease, unspecified; F17.210 Nicotine dependence, cigarettes, uncomplicated; Z79.51 Long term (current) use of inhaled steroids; Z79.891 Long term (current) use of opiate analgesic; Z79.01 Long term (current) use of anticoagulants; Z98.890 Other specified postprocedural states; Z87.19 Personal history of other diseases of the digestive system; Z86.79 Personal history of other diseases of the circulatory system
CPT/HCPCS: 45385; 88305; J1596; J2003; J2371; J2704; J7120

== ENCOUNTER 2024-04-18 12:20 | Outpatient (CLI) | payer MEDICARE, SELFPAY ==
--- NOTE | ~2024-04-18 | US_ITS ---
EXAMINATION: US right upper quadrant DATE: 04/18/2024 13:19 INDICATION: Unspecified cirrhosis of liver. TECHNIQUE: Multiple grayscale and Doppler ultrasound images of the abdomen were obtained. COMPARISON: Chest CT 05/05/2022, ultrasound 09/21/2023 FINDINGS: The pancreas is obscured by bowel gas. The liver is normal without focal lesion. There is n ormal flow in main portal vein. The gallbladder is normal in size. No gallstones or gallbladder wall thickening. There is no sonographic Rangel's sign. The common duct is normal and measures 3 mm. Perih epatic ascites is noted. IMPRESSION: 1. Perihepatic ascites. Reviewed, dictated and finalized at location A. [facility]OPER IMPRESSION: 1. Perihepatic ascites.
[2024-04-18 13:31] LABS: Hematocrit 45.1 % (42.0-52.0); Hemoglobin 14.9 g/dL (14.0-18.0); Mean Corpuscular Hemoglobin 30.8 pg (26-34); Mean Corpuscular Volume 93.4 fl (80-100); Mean Platelet Volume 9.5 fl (7.4-10.4); Platelet Count Result 439 k/mm3 (150-375); Red Blood Count 4.83 M/mm3 (4.6-6.20); Red Cell Distribution Width 16.4 % (11.5-14.5); White Blood Count 11.1 K/mm3 (4.5-10.0)
[2024-04-18 13:57] LABS: Alanine Aminotransferase 12 U/L (6-50); Albumin Level 3.2 g/dL (3.5-5.1); Alkaline Phosphatase 104 U/L (38-126); Anion Gap 2 mmol/L (4-12); Aspartate Amino Transferase 29 U/L (17-59); Bilirubin,Total 0.3 mg/dL (0.2-1.3); Blood Urea Nitrogen 21 mg/dL (9-20); Calcium 8.8 mg/dL (8.4-10.2); Carbon Dioxide 31 mmol/L (22-30); Chloride 103 mmol/L (98-107); Estimated Glomerular Filt Rate > 60; Glucose 95 mg/dL (65-110); Potassium 4.6 mmol/L (3.4-5.0); Sodium 136 mmol/L (137-145)
[2024-04-18 14:54] LABS: Iron 49 ug/dL (49-181)
[2024-04-18 15:03] LABS: Hepatitis B Surface Antigen Negative (Negative)
[2024-04-18 15:05] LABS: Percent Iron Saturation 18 % (20-50)
[2024-04-18 15:08] LABS: HAV RESULT Negative (Negative); Hepatitis B Core IgM Result Negative (Negative)
[2024-04-18 15:20] LABS: Hepatitis C Virus Antibody Negative (Negative)
[2024-04-19 12:33] LABS: Ceruloplasmin 33 mg/dL (14-30)
== END 2024-04-18 12:21 | disposition home or self-care (01) ==
PROVIDERS: PCP Family Medicine; Visit Provider Internal Medicine Gastroenterology
DX: K74.60 Unspecified cirrhosis of liver (principal); Z68.29 Body mass index [BMI] 29.0-29.9, adult; R74.8 Abnormal levels of other serum enzymes; R16.0 Hepatomegaly, not elsewhere classified
CPT/HCPCS: 36415; 76705; 80053; 80074; 82104; 82390; 82728; 83520; 83540; 83550; 85027

== ENCOUNTER 2024-05-29 15:05 | Outpatient (CLI) | payer MEDICARE, SELFPAY ==
[2024-05-29 15:33] LABS: Hematocrit 46.8 % (42.0-52.0); Hemoglobin 15.5 g/dL (14.0-18.0); Mean Corpuscular HGB Conc 33.1 g/dl (32-36); Mean Corpuscular Hemoglobin 31.4 pg (26-34); Mean Corpuscular Volume 94.7 fl (80-100); Mean Platelet Volume 9.9 fl (7.4-10.4); Platelet Count Result 364 k/mm3 (150-375); Red Blood Count 4.94 M/mm3 (4.6-6.20); Red Cell Distribution Width 15.9 % (11.5-14.5); White Blood Count 11.7 K/mm3 (4.5-10.0)
[2024-05-29 15:43] LABS: Alanine Aminotransferase 16 U/L (6-50); Albumin Level 2.8 g/dL (3.5-5.1); Alkaline Phosphatase 77 U/L (38-126); Anion Gap -2 mmol/L (4-12); Aspartate Amino Transferase 27 U/L (17-59); Bilirubin,Total 0.3 mg/dL (0.2-1.3); Blood Urea Nitrogen 16 mg/dL (9-20); Calcium 8.2 mg/dL (8.4-10.2); Carbon Dioxide 29 mmol/L (22-30); Chloride 109 mmol/L (98-107); Estimated Glomerular Filt Rate > 60; Glucose 80 mg/dL (65-110); Potassium 4.2 mmol/L (3.4-5.0); Sodium 136 mmol/L (137-145)
== END 2024-05-29 15:06 | disposition home or self-care (01) ==
PROVIDERS: PCP Family Medicine; Referring Provider Nurse Practitioner Family; Visit Provider Nurse Practitioner Family
DX: K70.30 Alcoholic cirrhosis of liver without ascites (principal); E87.1 Hypo-osmolality and hyponatremia
CPT/HCPCS: 36415; 80053; 85027

== ENCOUNTER 2024-07-24 13:29 | Outpatient (CLI) | payer MEDICARE, SELFPAY ==
--- NOTE | ~2024-07-24 | XR_ITS ---
EXAM: XR foot LT 2V DATE: 07/24/2024 14:17 HISTORY: M79.672 - Pain in left foot . COMPARISON: None available. FINDINGS: Decreased mineralization. No fracture or dislocation. No lytic or blastic lesion. Mild fla ttening of the second metatarsal head. Moderate degenerative change at the first MTP joint. Achilles and plantar enthesopathy. No erosion or periosteal change. Soft tissues within normal limits. IMPRESSION: Osteopenia. Moderate first MTP joint osteoarthritis. Flattening of the second metatarsal head may be secondary to degenerative change or early/mild Freiberg's infraction. Reviewed, dictated and finalized at location K. AR MAKER HAND IMPRESSION: Osteopenia. Moderate first MTP joint osteoarthritis. Flattening of the second metatarsal head may be secondary to degenerative change or early/mil d Freiberg's infraction.
[2024-07-24 14:35] LABS: Basophils Absolute Auto 0.1 K/mm3 (0.0-0.1); Basophils Percent Auto 0.8 % (0.2-1.2); Eosinophils Absolute Auto 0.2 K/mm3 (0-0.3); Hematocrit 43.6 % (42.0-52.0); Hemoglobin 14.2 g/dL (14.0-18.0); Immature Granulocyte Absolute 0.08 K/mm3 (0.00-0.031); Immature Granulocyte Percent A 0.7 % (0-0.5); Lymphocytes Percent Auto 15.3 % (18.3-44.2); Mean Corpuscular HGB Conc 32.6 g/dl (32-36); Mean Corpuscular Hemoglobin 31.4 pg (26-34); Mean Corpuscular Volume 96.5 fl (80-100); Mean Platelet Volume 9.8 fl (7.4-10.4); Monocytes Absolute Auto 1.2 K/mm3 (0.1-0.6); Monocytes Percent Auto 10.7 % (2.6-8.5); Neutrophils Absolute Auto 7.8 K/mm3 (1.3-6.7); Neutrophils Percent Auto 70.5 % (45.5-73.1); Platelet Count Result 426 k/mm3 (150-375); Red Blood Count 4.52 M/mm3 (4.6-6.20); Red Cell Distribution Width 15.4 % (11.5-14.5); White Blood Count 11.1 K/mm3 (4.5-10.0)
[2024-07-24 14:44] LABS: Iron 93 ug/dL (49-181)
[2024-07-24 14:53] LABS: Percent Iron Saturation 39 % (20-50)
--- OUTSIDE RECORDS SUMMARY | 2024-07-24 15:28 | XMS_ITS | Patient Health Record ---
Author Organization [facility] Address [address] [place], [place] [id number] Care Team Providers Care Solution Strategist Name Role Phone Ezequiel Anne Unavailable Unavailable LORA MUSE Unavailable [phone] Allergies No Known Allergies Reason For Referral No Information Vital Signs Height-cm 182.88 cm 12/01/2023 Weight-kg 90.72 kg 12/01/2023 Height 72 in 12/01/2023 Weight 200 lbs 12/01/2023 BMI 27.12 kg/m2 12/01/2023 Encounters Encounter Location Date Provider Diagnosis [facility] [address] [place], [place] [id number] 08/04/2023 LORA SNOOK 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 ; Tinea unguium B35.1 ; Acquired keratosis [keratoderma] palmaris et plantaris L85.1 ; Atherosclerosis of chilkoot arteries of extremities with intermittent claudication, bilateral legs I70.213 and Left foot pain M79.672 [facility] [address] [place], [place] [id number] 08/18/2023 LORA SNOOK 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 ; Tinea unguium B35.1 ; Atherosclerosis of chilkoot arteries of extremities with intermittent claudication, bilateral legs I70.213 and Left foot pain M79.672 [facility] [address] [place], [place] [id number] 09/01/2023 OLRA SNOOK 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 ; Tinea unguium B35.1 ; Atherosclerosis of chilkoot arteries of extremities with intermittent claudication, bilateral legs I70.213 and Left foot pain M79.672 [facility] [address] [place], [place] [id number] 09/29/2023 LORA SNOOK 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 ; Tinea unguium B35.1 ; Atherosclerosis of chilkoot arteries of extremities with intermittent claudication, bilateral legs I70.213 and Left foot pain M79.672 [facility] [address] [place], [place] [id number] 12/01/2023 LORA SNOOK Tinea unguium B35.1 ; Acquired keratosis [keratoderma] palmaris et plantaris L85.1 ; Atherosclerosis of chilkoot arteries of extremities with intermittent claudication, bilateral legs I70.213 ; Pain in right foot M79.671 and Pain in left foot M79.672 [facility] [address] [place], [place] [id number] 02/02/2024 LORA SNOOK Tinea unguium B35.1 ; Acquired keratosis [keratoderma] palmaris et plantaris L85.1 ; Atherosclerosis of chilkoot arteries of extremities with intermittent claudication, bilateral legs I70.213 ; Pain in right foot M79.671 and Pain in left foot M79.672 [facility] [address] [place], [place] [id number] 06/13/2024 LORA SNOOK Tinea unguium B35.1 ; Acquired keratosis [keratoderma] palmaris et plantaris L85.1 ; Atherosclerosis of chilkoot arteries of extremities with intermittent claudication, bilateral legs I70.213 ; Pain in right foot M79.671 and Pain in left foot M79.672 Assessments Encounter Date Diagnosis (ICD Code) Assessment Notes Treatment Notes Treatment Clinical Notes Section Notes 08/04/2023 Tinea unguium (ICD-10 - B35.1) FUNGAL TOENAILS: Discussed various treatment options for fungal toenails including debridement, topical antifungals, oral antifungals, toenail avulsion, or toenail matrixectomy. NAIL DEBRIDEMENT: Nails 1-5 Bilateral were debrided extensively with nail nippers and emery board, reducing length and girth to pink healthy tissue with any subungual debris and necrotic tissue removed 08/04/2023 Non-pressure chronic ulcer of other part of left foot with fat layer exposed (ICD-10 - L97.522) Ulcer Debridement: Using a 15 blade, the ulcer was sharply debrided down to bleeding tissue. The nonviable tissue was sharply debrided down to the layer of subcutaneous tissue. A dry sterile dressing was applied. Ulcer Plan of Care: The treatment goals are closure of the ulceration within an appropriate time frame. This will require regular debridements every 2 weeks until skin closure has been met. The patient will come in sooner than 2 weeks if the wound develops any signs of infection or deteriorates. The plan of care will be reviewed every month. If there is no change in the size of the wound, we will re evaluate debridement schedule, topical medications being used, as well as modify techniques for offloading the wound. HALL GRADING SYSTEM Grade 0: Pre-ulcerative Lesion, healed ulcers, presence of bone deformity Grade 1: Superficial Ulcer without subcutaneous tissue involvement Grade 2: Penetration through the subcutaneous tissue (may expose bone, tendon, ligament or joint capsule) Grade 3: Osteitis, abscess or osteomyelitis Grade 4: Gangrene of the foot. Based on clinical findings, the patient has the following grade ulceration: 2 Wound Care Education: Educated patient on proper wound care and answered all of their questions. Informed patient that if the wound develops any signs of infection or gets larger, that they should contact the office as soon as possible for evaluation and treatment. Infection Protocol: Patient instructed to observe foot for signs and symptoms of infection, including but not limited to: increased redness and warmth to the area, increased drainage from the area, foul odor, and/or presence of fever/chills/naus ea/vomiting. If patient experiences any of the above they are to call the office immediately, if someone is not present in the office then proceed to the nearest ER. 08/18/2023 Tinea unguium (ICD-10 - B35.1) 08/18/2023 Non-pressure chronic ulcer of other part of left foot with fat layer exposed (ICD-10 - L97.522) Ulcer Debridement: Using a 15 blade, the ulcer was sharply debrided down to bleeding tissue. The nonviable tissue was sharply debrided down to the layer of subcutaneous tissue. A dry sterile dressing was applied. Ulcer Plan of Care: The treatment goals are closure of the ulceration within an appropriate time frame. This will require regular debridements every 2 weeks until skin closure has been met. The patient will come in sooner than 2 weeks if the wound develops any signs of infection or deteriorates. The plan of care will be reviewed every month. If there is no change in the size of the wound, we will re evaluate debridement schedule, topical medications being used, as well as modify techniques for offloading the wound. HALL GRADING SYSTEM Grade 0: Pre-ulcerative Lesion, healed ulcers, presence of bone deformity Grade 1: Superficial Ulcer without subcutaneous tissue involvement Grade 2: Penetration through the subcutaneous tissue (may expose bone, tendon, ligament or joint capsule) Grade 3: Osteitis, abscess or osteomyelitis Grade 4: Gangrene of the foot. Based on clinical findings, the patient has the following grade ulceration: 2 Wound Care Education: Educated patient on proper wound care and answered all of their questions. Informed patient that if the wound develops any signs of infection or gets larger, that they should contact the office as soon as possible for evaluation and treatment. Infection Protocol: Patient instructed to observe foot for signs and symptoms of infection, including but not limited to: increased redness and warmth to the area, increased drainage from the area, foul odor, and/or presence of fever/chills/naus ea/vomiting. If patient experiences any of the above they are to call the office immediately, if someone is not present in the office then proceed to the nearest ER. 09/01/2023 Tinea unguium (ICD-10 - B35.1) 09/01/2023 Non-pressure chronic ulcer of other part of left foot with fat layer exposed (ICD-10 - L97.522) Ulcer Resolved: The nonviable tissue from the uler site was debrided down to normal appearing tissue. Advised patient to monitor this area for recurrence. Patient may discontinue local wound care. Ulcer Plan of Care: The treatment goals are closure of the ulceration within an appropriate time frame. This will require regular debridements every 2 weeks until skin closure has been met. The patient will come in sooner than 2 weeks if the wound develops any signs of infection or deteriorates. The plan of care will be reviewed every month. If there is no change in the size of the wound, we will re evaluate debridement schedule, topical medications being used, as well as modify techniques for offloading the wound. HALL GRADING SYSTEM Grade 0: Pre-ulcerative Lesion, healed ulcers, presence of bone deformity Grade 1: Superficial Ulcer without subcutaneous tissue involvement Grade 2: Penetration through the subcutaneous tissue (may expose bone, tendon, ligament or joint capsule) Grade 3: Osteitis, abscess or osteomyelitis Grade 4: Gangrene of the foot. Based on clinical findings, the patient has the following grade ulceration: 1 (almost 0) Infection Protocol: Patient instructed to observe foot for signs and symptoms of infection, including but not limited to: increased redness and warmth to the area, increased drainage from the area, foul odor, and/or presence of fever/chills/naus ea/vomiting. If patient experiences any of the above they are to call the office immediately, if someone is not present in the office then proceed to the nearest ER. Inserts: Dispensed and fitted pre-fabricated arch supports. Educated patient on their use. 09/29/2023 Tinea unguium (ICD-10 - B35.1) 09/29/2023 Non-pressure chronic ulcer of other part of left foot with fat layer exposed (ICD-10 - L97.522) Ulcer Resolved: The nonviable tissue from the uler site was debrided down to normal appearing tissue. Advised patient to monitor this area for recurrence. Patient may discontinue local wound care. Ulcer Plan of Care: The treatment goals are closure of the ulceration within an appropriate time frame. This will require regular debridements every 2 weeks until skin closure has been met. The patient will come in sooner than 2 weeks if the wound develops any signs of infection or deteriorates. The plan of care will be reviewed every month. If there is no change in the size of the wound, we will re evaluate debridement schedule, topical medications being used, as well as modify techniques for offloading the wound. HALL GRADING SYSTEM Grade 0: Pre-ulcerative Lesion, healed ulcers, presence of bone deformity Grade 1: Superficial Ulcer without subcutaneous tissue involvement Grade 2: Penetration through the subcutaneous tissue (may expose bone, tendon, ligament or joint capsule) Grade 3: Osteitis, abscess or osteomyelitis Grade 4: Gangrene of the foot. Based on clinical findings, the patient has the following grade ulceration: 0 Continue CloudWalker inserts 12/01/2023 Tinea unguium (ICD-10 - B35.1) Nails 1-5 Bilateral were debrided extensively with nail nippers and emery board, reducing length and girth to pink healthy tissue with any subungual debris and necrotic tissue removed 12/01/2023 Acquired keratosis [keratoderma] palmaris et plantaris (ICD-10 - L85.1) A total of 2 corns or calluses, as described in the note above, were cut and pared utilizing a #15 blade 02/02/2024 Tinea unguium (ICD-10 - B35.1) Nails 1-5 Bilateral were debrided extensively with nail nippers and emery board, reducing length and girth to pink healthy tissue with any subungual debris and necrotic tissue removed 02/02/2024 Acquired keratosis [keratoderma] palmaris et plantaris (ICD-10 - L85.1) A total of 1 corns or calluses, as described in the note above, were cut and pared utilizing a #15 blade 06/13/2024 Tinea unguium (ICD-10 - B35.1) Nails 1-5 Bilateral were debrided extensively with nail nippers and emery board, reducing length and girth to pink healthy tissue with any subungual debris and necrotic tissue removed 06/13/2024 Acquired keratosis [keratoderma] palmaris et plantaris (ICD-10 - L85.1) A total of 1 corns or calluses, as described in the note above, were cut and pared utilizing a #15 blade 06/13/2024 Atherosclerosis of chilkoot arteries of extremities with intermittent claudication, bilateral legs (ICD-10 - I70.213) 02/02/2024 Atherosclerosis of chilkoot arteries of extremities with intermittent claudication, bilateral legs (ICD-10 - I70.213) 12/01/2023 Atherosclerosis of chilkoot arteries of extremities with intermittent claudication, bilateral legs (ICD-10 - I70.213) 08/04/2023 Acquired keratosis [keratoderma] palmaris et plantaris (ICD-10 - L85.1) Hyperkeratosis: The skin was prepped with isopropyl alcohol. Using a 15-blade scalpel, the hyperkeratotic skin lesions were sharply debrided down to healthy appearing skin. 08/04/2023 Atherosclerosis of chilkoot arteries of extremities with intermittent claudication, bilateral legs (ICD-10 - I70.213) 09/01/2023 Atherosclerosis of chilkoot arteries of extremities with intermittent claudication, bilateral legs (ICD-10 - I70.213) 08/18/2023 Atherosclerosis of chilkoot arteries of extremities with intermittent claudication, bilateral legs (ICD-10 - I70.213) 12/01/2023 Pain in right foot (ICD-10 - M79.671) 09/29/2023 Atherosclerosis of chilkoot arteries of extremities with intermittent claudication, bilateral legs (ICD-10 - I70.213) 02/02/2024 Pain in right foot (ICD-10 - M79.671) 06/13/2024 Pain in right foot (ICD-10 - M79.671) 06/13/2024 Pain in left foot (ICD-10 - M79.672) 02/02/2024 Pain in left foot (ICD-10 - M79.672) 09/29/2023 Left foot pain (ICD-10 - M79.672) 12/01/2023 Pain in left foot (ICD-10 - M79.672) 08/18/2023 Left foot pain (ICD-10 - M79.672) 09/01/2023 Left foot pain (ICD-10 - M79.672) 08/04/2023 Left foot pain (ICD-10 - M79.672) Plan Of Treatment Next Appt Details Provider Name:LORA MUSE, 02:20:00 PM, [address], [place], [place], [id number], Insurance Providers Payer Name Payer Address Payer Phone Subscriber Number Group Number Insured Name Patient Relationship to Insured Coverage Start Date Coverage End Date [employer] [address] [place] [phone] [id number] MANI DAVIS Self - patient is the insured Medical (General) History Medical History History ICD Code No Known Allergies
--- OUTSIDE RECORDS SUMMARY | 2024-07-24 15:28 | XMS_ITS ---
Author Organization [facility] Address [address] [place], [place] [id number] Care Team Providers Care Business Travel Consultant Name Role Phone Ezequiel Anne Unavailable Unavailable LORA MUSE Unavailable [phone] REASON FOR VISIT Patient presents for at-risk foot care . The patient has painful toenails and calluses that are causing difficulty with ambulation and shoegear. The onset is gradual Encounters Encounter Location Date Provider Diagnosis [facility] [address] [facility] [address] [place], [place] [id number] 06/13/2024 LORA MUSE Tinea unguium B35.1 ; Acquired keratosis [keratoderma] palmaris et plantaris L85.1 ; Atherosclerosis of chitina arteries of extremities with intermittent claudication, bilateral legs I70.213 ; Pain in right foot M79.671 and Pain in left foot M79.672 Assessments Encounter Date Diagnosis (ICD Code) Assessment Notes Treatment Notes Treatment Clinical Notes Section Notes 06/13/2024 Tinea unguium (ICD-10 - B35.1) Nails [...] utilizing a #15 blade 06/13/2024 Atherosclerosis of chitina arteries of extremities with intermittent claudication, bilateral legs (ICD-10 - I70.213) 06/13/2024 Pain in right foot (ICD-10 - M79.671) 06/13/2024 Pain in left foot (ICD-10 - M79.672) Plan Of Treatment Treatment Notes Assessment Notes Tinea unguium Nails 1-5 Bilateral were debrided extensively with nail nippers and emery board, reducing length and girth to pink healthy tissue with any subungual debris and necrotic tissue removed Acquired keratosis [keratode rma] palmaris et plantaris A total of 1 corns or calluses, as described in the note above, were cut and pared utilizing a #15 blade Next Appt Details Follow Up: 10 - 12 weeks, Re ason: At-Risk Foot care, sooner if problems develop. Provider Name:LORA MUSE, 02:20:00 PM, [address] [facility], [address], [id number], Progress Notes * SUSAN JOSEFAMYLESOB:1955 (69 yo M)Acc No.[id number]:06/13/2024 Patient: MANI CANNON Provider: Jaye Muse DPM :1955 A ge:69 Y S ex:Male Date:06/13/2024 Address:[address] [place], [place] [address] Subjective: * Chief Complaints: * Tenisha root presents for at-risk foot care . The patient has painful toenails and calluses that are causing difficulty with ambulation and shoegear. The onset is gradual * HPI: H PI: General care P dk presents to the office for at risk foot care. Patient states that their nails are thickened, elongated and painful. Patient states that it is aggravated by shoe gear. Onset is gradual. Patient denies being diabetic., Patient is taking prescription blood thinners., Date last seen by Dr. Anne was 04/2024., Initials mf. * ROS: G eneral / Constitutional: Patient denies c hills, fatigue, fever. M usculoskeletal: Patient denies b roken foot bone, weakness. ? S kin: Patient denies u lcerations, warts. P atient complains of f ungal nails, discoloration, dry skin, calluses and corns. N eurologic: Patient denies b alance difficulty, confusion, difficulty speaking, dizziness. * Medical History: * Surgical History: * Hospitalization/Major Diagno stic Procedure: * Medications: Objective: * Vitals: * Examination: P hysical Examination: General appearance: A lert, pleasant, well-nourished and in no acute distress. D ermatologic: Skin findings: S kin is thin, atrophic and lacking pedal hair. Hypertrophic / hyperkeratotic lesion: p lantar aspect of the left 5th metatarsal head. Nail pathology: N ails 1, 2, 3, 4, and 5 bilateral are elongated, thick, discolored, and dystrophic with subungual debris. They are painful to palpation. ? V ascular: Dorsalis pedis pulse: 1 /4 b ilateral. Posterior tibial pulse: 0 /4 bilateral. Capillary refill: g reater than 3 seconds. Edema: N o edema bilateral. N eurologic: Gross sensation G rossly intact to light touch. There is negative Tinel's sign. M usculoskeletal: Muscle Strength M uscle strength is 5/5 in regards to dorsiflexion, plantarflexion, inversion, and eversion in bilateral lower extremities. ? Assessment: * Assessment: 1. T inea unguium - B35.1 (Primary) 2 . A cquired keratosis [keratoderma] palmaris et plantaris - L85.1 3 . A therosclerosis of chitina arteries of extremities with intermittent claudication, bilateral legs - I70.213 4 . P ain in right foot - M79.671 5 . P ain in left foot - M79.672 Plan: * Treatment: 2. A cquired keratosis [keratoderma] palmaris et plantaris Notes: A total of 1 corns or calluses, as described in the note above, were cut and pared utilizing a #15 blade * Procedure Codes: * Follow Up: 1 0 - 12 weeks (Reason: At-Risk Foot care, sooner if problems develop.) * Billing Information: * Visit Code: 47858 Office Visit, Est Pt., Level 3. * Procedure Codes: * WOOD FLOOR INSTALLER Sign off status: Completed true * Provider: Jaye Muse DPM Date: 0 06/13/2024 Generated for Des rene/Rosa/Tankitting on: 0 07/24/2024 03:28 PM HARDWOOD FLOOR INSTALLER History and Physical Notes * HPI (History of Present Illness) Category Sub-Category Detail Notes Category Not es HPI General care Patient presents to the office for at risk foot care. Patient states that their nails are thickened, elongated and painful. Patient states that it is aggravated by shoe gear. Onset is gradual. Patient denies being diabetic., Patient is taking prescription blood thinners., Date last seen by Dr. Anne was 04/2024., Initials mf Examination Category Sub-Category Detail Notes Category Not es Dermatologic Skin findings: Skin is thin, at rophic and lacking pedal hair Nail pathology: Nails 1, 2, 3, 4, an d 5 bilateral are elongated, thick, discolored, and dystrophic with subungual debris. They are painful to palpation Hypertrophic / hyperkeratotic lesion: pl ilana aspect of the left 5th metatarsal head Neurologic Gross sensation Grossly intact t o light touch. There is negative Tinel's sign Vascular Dorsalis pedis pulse: 1/4 bilateral Edema: No edema bilateral Capillary refill: greater than 3 secon ds Posterior tibial pulse: 0/4 bilateral Physical Examination General appearance: Alert, pleasant, well-nourished and in no acute distress Musculoskeletal Muscle Strength Muscle strength is 5/5 in regards to dorsiflexion, plantarflexion, inversion, and eversion in bilateral lower extremities
--- OUTSIDE RECORDS SUMMARY | 2024-07-24 15:28 | XMS_ITS ---
Author Organization [facility] Address [address] [place], [place] [address] Care Team Providers Care Satellite Installation Technician Name Role Phone Ezequiel Anne Unavailable Unavailable LORA MUSE Unavailable [phone] REASON FOR VISIT *General care Encounters Encounter Location Date Provider Diagnosis [facility] [address] [facility] [address] [place], [place] [id number] 04/12/2024 LORA MUSE Plan Of Treatment Next Appt Details Provider Name:LORA MUSE, 02:20:00 PM, [address], [address], [place], [place], [id number], Progress Notes * WILLIAM DAVISOB:1955 (69 yo M)Acc No.[id number]:04/12/2024 Patient: MANI CANNON Provider: Jaye Muse DPM :1955 A ge:69 Y S ex:Male Date:04/12/2024 Address:[address] [facility] Subjective: * Chief Complaints: * 1 . *General care. * Medical History: Objective: * Vitals: Assessment: Plan: * Treatment: * Billing Information: * Visit Code: * Procedure Codes: * Electronic signature of LORA MUSE DPM on 07/24/2024 at 03:28 PM CLERICAL SECRETARY Sign off status: Pending * Provider: Jaye Muse DPM Date: 1 06/12/2023 Generated for Des rene/Rosa/Cathy on: 0 07/24/2024 03:28 PM CLERICAL SECRETARY
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
--- OUTSIDE RECORDS SUMMARY | 2024-07-24 15:29 | XMS_ITS | Encounter Summary ---
Author Organization [facility] Address [facility] [place] [address] Care Team Providers Care Deck And Hull Assembler Name Role Phone Manish Sanchez MD Primary Care Provider [phone] Niko Albarran MD Unavailable [phone] Keshia White MD Unavailable [phone] Karina Mojica NETWORK APPLICATIONS SPECIALIST Primary Care Provider [phone] Landen Velasco MD Unavailable [phone] Tomi Bermeo MD Unavailable Gonzalez Rangel MD Unavailable [phone] Encounter Details Date Type Department Care Team (Late st Contact Info) Description 06/24/2020 Budget Message Enc [facility] [facility], [address] [place] [address] Niko Albarran MD [address] [facility] [address] [place] [address] RE: Question Social History Tobacco Use Types Packs/Day Years Used Date Smoking Tobacco: Every Day Cigarettes Smokeless Tobacco: Never Alcohol Use Standard Drinks/Week Comments Yes 16.7 (1 standard drink = 0.6 oz pure alcohol) AUDIT-C Answer Date Recorded Frequency of Alcohol Consumption 4 or more times a week 09/08/2019 Average Number of Drinks Not on file 020 Frequency of Binge Drinking Daily or almost heaven y 09/08/2019 Sex and Gender Information Value Date Recorded Sex Assigned at Male 03/22/2023 9:33 AM CDT Legal Sex Male 11:53 AM CDT Gender Identity Male 03/22/2023 9:33 AM CDT Sexual Orientation Not on file Occupation Industry Job Start Date Job End Date Not on file Not on file Not on file Not on file documented as of this encounter Functional Status * RETIRED Are you deaf or do you have serious difficulty hearing Answer Date of Assessment Author Status No 05/05/2019 11:05 PM ESCROW PROCESSOR Acti ve * RETIRED Are you blind or do you have serious difficulty seeing, even when wearing glasses? Answer Date of Assessment Author Status No 05/05/2019 11:05 PM ESCROW PROCESSOR Acti ve * Do you have serious difficulty walking or climbing stairs? Answer Date of Assessment Author Status No 05/05/2019 11:05 PM Shaye Wylie RN Active * Do you have difficulty dressing or bathing? Answer Date of Assessment Author Status No 05/05/2019 11:05 PM Shaye Wylie RN Active * Because of a physical, mental, or emotional condition, do you have difficulty doing errands alone such as visiting a doctor's office or shopping? Answer Date of Assessment Author Status No 05/05/2019 11:05 PM Shaye Wylie RN Active documented as of this encounter Mental Status * Because of a physical, mental, or emotional condition, do you have serious difficulty concentrating, remembering, or making decisions? Answer Entry Date Author Status No 05/05/2019 11:05 PM Shaye Wylie RN Active documented in this encounter Plan of Treatment Upcoming Encounters Date Type Department Care Team (Late st Contact Info) Description 08/31/2024 1:00 PM CDT Office Visit [facility] Medical [facility] Multispecialty Care - [facility] [address] [facility] [place] [id number] Gonzalez Rangel MD [facility] [address] [place] [address] 10/16/2024 12:30 PM CDT Office Visit [facility] [facility], [facility] [address] [place] [address] Jadyn Colvin PA-C Three [facility] [address] [place] [address] Afua Nguyen MD Three [facility]. [facility] [address] [place], [place] [address] 01/03/2025 3:00 PM CDT Appointment [facility] [place] [address] Keshia White MD Three [facility]. [place] [address] [place] [address] 01/17/2025 2:15 PM CDT Office Visit [facility] [facility], [facility] [address] [place] [address] Keshia White MD [facility]. [facility] [address] [place], [place] [address] documented as of this encounter Visit Diagnoses Not on filedocumented in this encounter Care Teams Deck And Hull Assembler Relationship Specialty Start Date End Date Manish Sanchez MD [address] [place] [id number] PCP - General FAMILY PRACTICE 01/09/18 09/27/20 Karina Mojica [place] [address] PCP - General NURSE PRACTITIONER 09/28/20 Niko Albarran MD [address] [facility] [address] [place] [address] [place] Worker CARDIOVASCULAR DISEASE 05/11/19 04/02/24 Keshia White MD Three [facility]. [address] [place] [address] [place] Worker INTERVENTIONAL CARDIOLOGY 09/08/19 Landen Velasco MD [address] [place] [address] Referring Physician EMERGENCY MEDICINE 04/07/23 4 Tomi Bermeo MD [address] [place] [address] Medical Oncologist INTERNAL MEDICINE HEMATOLOGY & ONCOLOGY 04/03/24 Gonzalez Rangel MD [address] [place] [address] [address] [place] [address] Consulting Physician PULMONARY DISEASE 04/03/24 documented as of this encounter
--- OUTSIDE RECORDS SUMMARY | 2024-07-24 15:29 | XMS_ITS | Clinical Summary ---
Author Organization [facility] Address [address] [place] [address] Care Team Providers Care Quality Control Manager Name Role Phone Keshia White MD Unavailable [phone] Karina Mojica NP Primary Care Provider [phone] Tomi Bermeo MD Unavailable Isamar Hernandez MD Unavailable [phone] Allergies No known active allergies Medications atorvastatin (LIPITOR) 40 MG tablet Take 1 tablet (40 mg total) by mouth nightly at bedtime. 30 tablet 3 Active sertraline (ZOLOFT) 50 MG tablet Take 1 tablet (50 mg total) by mouth daily. 3 Active spironolactone (ALDACTONE) 100 MG tablet Take 1 tablet (100 mg total) by mouth daily. 3 Active pantoprazole EC (PROTONIX) 40 MG tablet Take 1 tablet (40 mg total) by mouth daily. Active buPROPion XL (WELLBUTRIN XL) 150 MG 24 hr tablet Take 1 tablet (150 mg total) by mouth 2 (two) times daily. 3 Active LINZESS 145 MCG capsule Take 1 capsule (145 mcg total) by mouth every morning before breakfast. 3 Active midodrine (PROAMATINE) 10 MG tablet Take 1 tablet (10 mg total) by mouth 3 (three) times daily. 3 Active omeprazole (PRILOSEC) 40 MG capsule Take 1 capsule (40 mg total) by mouth daily. Active levothyroxine (SYNTHROID) 75 MCG tablet Take 1 tablet (75 mcg total) by mouth every morning. 4 Active baclofen (LIORESAL) 10 MG tablet Take 1 tablet (10 mg total) by mouth nightly at bedtime. 4 Active rOPINIRole (REQUIP) 1 MG tablet Take 1 tablet (1 mg total) by mouth 2 (two) times daily. 4 Active ferrous sulfate, 65 mg elemental, 325 (65 FE) MG tablet Take 1 tablet (325 mg total) by mouth daily. 4 Active amiodarone (PACERONE) 200 MG tablet Take 0.5 tablets (100 mg total) by mouth daily. 45 tablet 1 4 Active CHOLECALCIFEROL 1.25 mg capsule Take 1 capsule (1.25 mg total) by mouth once a week. 4 Active furosemide (LASIX) 20 MG tablet TAKE 1 TABLET BY MOUTH EVERY DAY 90 tablet 1 4 Active albuterol sulfate HFA 108 (90 Base) MCG/ACT inhalerIndicati ons:Panlobular emphysema (CMS/HCC HHS/HCC) INHALE 2 PUFFS INTO THE LUNGS EVERY 4 (FOUR) HOURS NEEDED FOR SHORTNESS OF BREATH 18 g 5 4 Active budesonide-glyc opyrrolate-form oterol (BREZTRI AEROSPHERE) 160-9-4.8 MCG/ACT inhalerIndicati ons:Panlobular emphysema (CMS/HCC HHS/HCC) Inhale 2 puffs into the lungs 2 (two) times a day. 10.7 g 11 4 Active HYDROcodone-shahzad taminophen (NORCO) 7.5-325 MG tablet Take 1 tablet by mouth every 8 (eight) hours as needed. 4 Active aspirin EC (ECOTRIN) 81 MG tablet Take 1 tablet (81 mg total) by mouth daily. 90 tablet 1 5 Active tiZANidine HCl 4 MG Cap Take 1 capsule by mouth as needed. 5 Active rivaroxaban (XARELTO) 2.5 MG tablet Take 1 tablet (2.5 mg total) by mouth 2 (two) times daily. 60 tablet 3 5 Active clopidogrel (PLAVIX) 75 MG tablet Take 1 tablet (75 mg total) by mouth daily. 30 tablet 3 5 07/21/19 25 Discontinu ed(Netta villasenor Physician) Active Problems Problem Noted Date Diagnosed Date Chronic diastolic (congestiv e) heart failure ([facility]) 05/16/2024 Atrial fibrillation ([facility]) 04/11/2024 Major depressive disorder, recurrent, unspecifie d 03/27/2023 Unspecified severe protein-c alorie malnutrition ([facility]) 03/27/2023 Cardiomegaly 03/26/2023 Cognitive communication deficit 03/26/2023 Difficulty in walking, not elsewhere classified 03/26/2023 Other specified arthritis, unspecified site 03/01 Pain in left hip 03/26/2023 Spontaneous bacterial peritonitis ([facility]/ [facility]) 03/26/2023 Unspecified cirrhosis of liver ([facility]) 03/26/2023 Other lack of coordination 03/26/2023 Weakness 03/26/2023 Intertrochanteric fracture of left femur ([facility]) 03/22/2023 Cigarette nicotine dependence without complicati on 11/25/2022 Panlobular emphysema ([facility]) Congestive heart failure ([facility]) 08/18 Acute exacerbation of CHF (c ongestive heart failure) ([facility]) 07/25/2022 Ascending aortic aneurysm 07/23/2022 Acute heart failure with pre served ejection fraction ([facility]) 07/22/2022 Alcoholism ([facility]) 07/22/2022 History of atrial fibrillation 06/22/2022 Dyslipidemia 10/28/2020 Pain in left lower leg 11/27/2019 PAD (peripheral artery disease) 08/04/2019 Tobacco abuse 08/04/2019 Hypertension 06/09/2019 COPD (chronic obstructive pu lmonary disease) ([facility]) 06/09/2019 Abnormal EKG 06/09/2019 A-fib ([facility]) 05/05/2019 Resolved Problems Problem Noted Date Diagnosed Date Resolved Date Acute exacerbation of conges tive heart failure ([facility]) 03/12/2023 03/16/2023 Encounters Date Type Department Care Team Description 07/21/2024 1:00 PM AIR CONDITIONING EQUIPMENT MECHANIC [facility] [address] [address] [place] [address] Keshia White MD CHF; Atrial Fibrillation; Peripheral Vascular Disease (2 mo follow up) 07/21/2024 Travel 07/10/2024 Telephone [facility] [address] [address] [place] [address] Dora Davis, RN Results 07/07/2024 1:42 PM AIR CONDITIONING EQUIPMENT MECHANIC - 07/07/2024 11:59 PM AIR CONDITIONING EQUIPMENT MECHANIC Hospital Encounter [facility] [place] [place] [address] [place] [address] Keshia White MD Discharge Disposition: Home or Self Care (Routine Discharge) 07/07/2024 Travel 06/16/2024 2:34 PM AIR CONDITIONING EQUIPMENT MECHANIC - 06/16/2024 11:59 PM AIR CONDITIONING EQUIPMENT MECHANIC Hospital Encounter [facility] [place] [address] [place] [place] [address] Isamar Hernandez MD Discharge Disposition: Home or Self Care (Routine Discharge) 06/16/2024 Scan HEALTH INFO SRVCS Scanned, [facility] PFT (SCAN) 06/16/2024 Travel 06/15/2024 11:36 AM AIR CONDITIONING EQUIPMENT MECHANIC Anesthesia Event [facility] Accounts Receivable [place] [address] [place] [address] David Muñiz MD 06/15/2024 8:57 AM AIR CONDITIONING EQUIPMENT MECHANIC - 06/15/2024 11:59 PM AIR CONDITIONING EQUIPMENT MECHANIC Hospital Encounter [facility] [address] [place] [place] [address] Lianne Mccullough MD Discharge Disposition: Home or Self Care (Routine Discharge) 06/15/2024 8:57 AM AIR CONDITIONING EQUIPMENT MECHANIC - 06/15/2024 2:09 PM AIR CONDITIONING EQUIPMENT MECHANIC Hospital Encounter [facility] [place] [address] [place] [address] Lianne Mccullough MD Siddiqui, Ata U., Oleksandr Henderson CRNA Discharge Disposition: Home or Self Care (Routine Discharge) 06/15/2024 Travel 06/14/2024 Hospital Orders Only [facility] Accounts Receivable [place] [address] [place] [place] [address] Lianne Mccullough MD 06/14/2024 Orders Only [facility] [place] [address] [place] [address] Lianne Mccullough MD 06/01/2024 2:49 PM AIR CONDITIONING EQUIPMENT MECHANIC - 06/01/2024 11:59 PM AIR CONDITIONING EQUIPMENT MECHANIC Hospital Encounter [facility] [place] [address] [place] [address] Isamar Hernandez MD Discharge Disposition: Home or Self Care (Routine Discharge) 06/01/2024 Travel 05/19/2024 2:15 PM AIR CONDITIONING EQUIPMENT MECHANIC [facility], [facility] [address] [place] [address] Kimberly Coates PA-C Atrial Fibrillation (Watchman follow up) 05/19/2024 Travel 05/19/2024 Orders Only [facility] Accounts Receivable [place] [address] [place] [place] [address] Lianne Mccullough MD 05/01/2024 2:40 PM AIR CONDITIONING EQUIPMENT MECHANIC Office Visit [facility] Medical Group Multispecialty Care - [facility] [address] [place] [address] Isamar Hernandez MD Follow Up 05/01/2024 Travel from Last 3 Months Immunizations Name Administration Dates Next Due Fluzone 6 Months+ Quad (0.5 mL Prefilled Syringe ) 07/29/2022 MODERNA COVID-19 (12+) MRNA, LNP-S, PF, 100 MCG/ 0.5 ML DOSE 08/15/2020,07/18/2020 Tdap (Boostrix) 12/17/2022 Tdap (Generic) 10/27/2020 Family History Medical History Relation Comments bypass Father Cancer Mother Relation Status Comments Father Alive Mother Alive Social History Tobacco Use Types Packs/Day Years Used Date Smoking Tobacco: Every Day Cigarettes 0.5 50.3 Started: 04/03/1974 Passive Smoke Exposure: Current Smokeless Tobacco: Never Tobacco Cessation:Ready to Q uit: No; Counseling Given: Yes Comments:Provider to hiv counselor Alcohol Use Standard Drinks/Week Comments Not Currently [...] Date Recorded Patient Health Questionnaire-2 Score 0 05/01/2024 Hunger Vital Sign Answer Date Recorded Within the past 12 months, y ou worried that your food would run out before you got the money to buy more. Never true 03/23/20 Within the past 12 months, t he [...] place to sleep or slept in a penitentiary (including now)? No 03/23/2023 Sex and Gender Information Value Date Recorded Sex Assigned at Male 03/22/2023 9:33 AM CDT Legal Sex Male 11:53 AM CDT Gender Identity Male 03/22/2023 9:33 AM CDT Sexual Orientation Not on file Occupation Industry Job Start Date Job End Date Not on file Not on file Not on file Not on file Last Filed Vital Signs Vital Sign Reading Time Taken Comments Blood Pressure 106/70 07/21/2024 12:45 PM AIR CONDITIONING EQUIPMENT MECHANIC Pulse 89 07/21/2024 12:45 PM AIR CONDITIONING EQUIPMENT MECHANIC Temperature 36.9 C (98.4 F) 06/15/2024 9:40 AM AIR CONDITIONING EQUIPMENT MECHANIC Respiratory Rate 17 06/15/2024 1:00 PM AIR CONDITIONING EQUIPMENT MECHANIC Oxygen Saturation 96% 07/21/2024 12:45 PM AIR CONDITIONING EQUIPMENT MECHANIC Inhaled Oxygen Concentration - - Weight 77.6 kg (171 lb) 07/21/2024 12:45 PM AIR CONDITIONING EQUIPMENT MECHANIC Height 182.9 cm (6') 07/21/2024 12:45 PM AIR CONDITIONING EQUIPMENT MECHANIC Body Mass Index 23.19 07/21/2024 12:45 PM AIR CONDITIONING EQUIPMENT MECHANIC Plan of Treatment Upcoming Encounters Date Type Department Care Team (Late st Contact Info) Description 08/31/2024 1:00 PM CDT Office Visit [facility] Medical Group Multispecialty Care - [facility] [address] [place] [address] Isamar Hernandez MD [address] [place] [address] 10/16/2024 12:30 PM CDT Office Visit [facility] [address] [place] [address] Jadyn Colvin PA-C [facility] [address] [place] [address] Afua Nguyen MD [facility] [address] [place] [address] 01/03/2025 3:00 PM CDT Appointment [facility] [address] [facility] [place] [address] Keshia White MD [facility] [address] [place] [address] 01/17/2025 2:15 PM CDT Office Visit [facility] [address] [facility] [facility] [address] [place] [address] Keshia White MD [facility]. [address] [place], [place] [address] Health Maintenance Due Date Last Done Comments Colorectal Cancer Screening Colonoscopy (10 Years) 1955 Pneumococcal Vaccine: 65+ Years (1 of 2 - PCV) 02/28/1960 Zoster Vaccines (1 of 2) 02/28/2004 RSV Immunization or 60+ Years (1 - Risk 60-74 years 1-dose series) 2014 Annual Medicare Wellness Visit 2019 ASCVD LDL 01/12/2024 01/11/2023, 02/0 01/2023, 04/01/2021 COVID-19 Vaccine (3 - season) 2024 08/15/2020, 08/15/2020, 07/18/2020, Additional history exists Influenza Adult (#1) 2024 07/29/2022 PHQ-2 (Physician [place]) 05/31/2024 05/01/2024 Lung Cancer Screening 06/01/2025 06/01/2024 , 08/09/2023, 10/27/2020 DTaP, Tdap and Td Vaccines (3 - Td or Tdap) 12/17/2032 12/17/2022, 12/17/2022, 10/27/2020 Hepatitis C Completed 01/27/2023 AAA SCREENING Completed 06/01/2024, 01/29, 08/09/2023, Additional history exists Meningococcal B Vaccine Aged Out No l onger eligible based on patient's age to complete this topic Meningococcal Vaccine Aged Out No socorro joselyn eligible based on patient's age to complete this topic RSV Immunizations Under 20 Months Aged Out No longer eligible based on patient's age to complete this topic Goals Goal Patient Goal Type Associated Problems Recent Progress Patient-Stated? Author Family - family caregiver with be involved in care transitions and discharge planning Lifestyle No Sheryl Albarran RN Medical Devices Implanted Type Area Rehab Manager Device Identifier Shelf Expiration Date Model / Serial / Lot Ondina Closure Device- 024 Implanted:Qty: 1 on 04/11/2024 by Afua Nguyen MD Closure Device [employer] JOHN [id number] 12/09/2026 / / [id number] 11mm/125 Degree Ti Sadie Tfna Implanted:Qty: 1 on 03/23/2023 by Sina Conner MD at [facility] O'JT Hip Components Left: Hip [employer] J[employer] 09/27/2032 04.037.1 12S / / [id number] Tfna Fenestrated Screw 100mm Implanted:Qty: 1 on 03/23/2023 by Sina Conner MD at [facility] Hip Components Left: Hip [employer] [id number] 08/28/2032 04.038.2 00S / / [id number] 5.0mm Locking Screw Implanted:Qty: 1 on 03/23/2023 by Sina Conner MD at [facility] Screw Left: Hip [employer] 06/30/2032 04.005.5 26S / / [id number] Procedures Procedure Name Priority Date/Time Associated Diagnosis Comments USV ART EXER W CLEMENT[place] LOW EXT Routine 07/07/2024 2:14 PM AIR CONDITIONING EQUIPMENT MECHANIC PVD (peripheral vascular disease) (CMS/HCC) Symptoms involving cardiovascular system HOME O2 EVAL Routine 06/16/2024 3:00 PM AIR CONDITIONING EQUIPMENT MECHANIC Panlobular emphysema (CMS/HCC HHS/HCC) PULMONARY FUNCTION TEST Routine 06/16/2024 3:00 PM AIR CONDITIONING EQUIPMENT MECHANIC Panlobular emphysema (CMS/HCC HHS/HCC) PFT GENERIC (SCAN ORDER) 06/16/2024 USE TRANSESOPHAGEAL ECHO Routine 06/15/2024 12:03 PM AIR CONDITIONING EQUIPMENT MECHANIC Persistent atrial fibrillation (CMS/HCC HHS/HCC) PROTHROMBIN TIME, VENOUS Routine 06/15/2024 9:06 AM AIR CONDITIONING EQUIPMENT MECHANIC Aneurysm of ascending aorta without rupture (CMS/HCC) BASIC METABOLIC PANEL Routine 06/15/2024 9:06 AM AIR CONDITIONING EQUIPMENT MECHANIC Aneurysm of ascending aorta without rupture (CMS/HCC) CBC W/DIFF AUTOMATED Routine 06/15/2024 9:06 AM AIR CONDITIONING EQUIPMENT MECHANIC Aneurysm of ascending aorta without rupture (CMS/HCC) CT CHEST WO CON Routine 06/01/2024 3:07 PM AIR CONDITIONING EQUIPMENT MECHANIC Multiple nodules of lung HEPATITIS C ANTIBODY Routine 01/27/2023 10:10 PM CDT LIPID PANEL Routine 01/11/2023 4:11 PM CDT Heart failure, unspecified (CMS/HCC HHS/HCC) from Last 3 Months or Most Recently Relevant to Health Maintenance Results * USV ART EXER W [place] LOW EXT (07/07/2024 2:14 PM AIR CONDITIONING EQUIPMENT MECHANIC) Anatomical Region Laterality Modality Extremity Vascular Ultraso und 07/07/2024 1:52 PM AIR CONDITIONING EQUIPMENT MECHANIC Narrative 07/07/2024 3:40 PM AIR CONDITIONING EQUIPMENT MECHANIC ARTERIAL DOPPLER - [place] BILATERAL LOWER EXTREMITY [facility]ASCULAR [facility] Pat.Name: MANI DAVIS Jacbo Pat.ID: [id number] .Date: 07/07/2024 Exam Time: 1:52:00 PM Study Type:BARRON VS Arterial Doppler Legs AGUSTIN Height: 72 in Age: 9 1955,69Y Sex: M Sonogrphr: Lianne Sanchez RVT Pat. Stat.:Outpatient History / Clinical:known PAD Procedures: Doppler waveforms, Digit PPG, Systolic Pressures w/CLEMENT[place] Race: W ++++++++++++++++++++++++++++++++++++ SUMMARY: ++++++++++++++++++++++++++++++++++++ [facility] [place] Criteria: >1.30 = falsely elevated, calcified vessels; 1.00-1.29 = no signif ischemia at rest ; .80-.99 = mild PAD, asymptomatic; .50-.79 = moderate PAD, claudication; <.50 = severe PAD, rest pain; <.30 = critical PAD, necrosis, poor healing (Digits: DBI >.60 Normal; <.60 Abnormal) (Positive Stress eval: CLEMENT[place] decrease of >.20 or >20% pressure drop) Right leg: Common Femoral waveform is triphasic, high amplitude; Popliteal monophasic, medium amplitude; Posterior Tibial monophasic, medium amplitude with CLEMENT[place] 0.735 ; DP/Anterior Tibial monophasic, medium amplitude with CLEMENT[place] 0.864 . Digit flow by PPG is absent with DBI 0.515 . Left leg: Common Femoral waveform is triphasic, high amplitude; Popliteal monophasic, medium amplitude; Posterior Tibial monophasic, low amplitude with CLEMENTINA 0.97 ; DP/Anterior Tibial monophasic, low amplitude with CLEMENT[place] 0.97 . Digit flow by PPG is low amplitude with DBI 0.348 . CONCLUSION: CLEMENT[place] right leg 0.86, with toe index 0.515 , in the range of mild ischemia, asymptomatic PAD. Waveforms suggestive of femoral-popliteal disease. CLEMENT[place] left leg 0.97, with toe index 0.348 , in the range of no ischemia. Waveforms suggestive of femoral-popliteal disease, infrageniculate disease. Recommend follow up in 1 year. ++++++++++++++++++++++++++++++++++++ MEASUREMENTS: ++++++++++++++++++++++++++++++++++++ PRESSURES Right Brachial Brach P 130 mmHg Right Ankle DP AnkleDP P 114 mmHg Right Ankle PT AnklePT P 97 mmHg Right Great Toe GreatToe P 68 mmHg Right CLEMENTINA PT CLEMENT[place] PT 0.735 Right [place] DP CLE[place] DP 0.864 Right TBI TBI 0.515 Left Brachial Brach P 132 mmHg Left Ankle DP AnkleDP P 128 mmHg Left Ankle PT AnklePT P 128 mmHg Left Great Toe GreatToe P 46 mmHg Left CLEMENTINA PT CLE[place] PT 0.97 Left [place] DP CLE[place] DP 0.97 Left TBI TBI 0.348 <Electronic Signature> 07/07/2024 03:40 PM Keshia White M.D. Procedure Note Keshia White MD - 07/07/2024 ARTERIAL DOPPLER - [place] [facility]ILATERAL [facility] Pat.Name: SUSAN MANI Jacob Pat.ID: [id number] .Date: 07/07/2024 Exam Time: 1:52:00 PM Study Type:BARRON VS Arterial Doppler Legs AGUSTIN Height: 72 in Age: 9 1955,69Y Sex: M Sonogrphr: Lianne Sanchez RVT Pat. Stat.:Outpatient History / Clinical:known PAD Procedures: Doppler waveforms, Digit PPG, Systolic Pressures w/CLEMENT[place] Race: W ++++++++++++++++++++++++++++++++++++ SUMMARY: ++++++++++++++++++++++++++++++++++++ [facility] [place] Criteria: >1.30 = falsely elevated, calcified vessels; 1.00-1.29 = no signif ischemia at rest ; .80-.99 = mild PAD, asymptomatic; .50-.79 = moderate PAD, claudication; <.50 = severe PAD, rest pain; <.30 = critical PAD, necrosis, poor healing (Digits: DBI >.60 Normal; <.60 Abnormal) (Positive Stress eval: CLEMENT[place] decrease of >.20 or >20% pressure drop) Right leg: Common Femoral waveform is triphasic, high amplitude; Popliteal monophasic, medium amplitude; Posterior Tibial monophasic, medium amplitude with CLEMENTINA 0.735 ; DP/Anterior Tibial monophasic, medium amplitude with CLEMENTINA 0.864 . Digit flow by PPG is absent with DBI 0.515 . Left leg: Common Femoral waveform is triphasic, high amplitude; Popliteal monophasic, medium amplitude; Posterior Tibial monophasic, low amplitude with CLEMENTINA 0.97 ; DP/Anterior Tibial monophasic, low amplitude with CLEMENTINA 0.97 . Digit flow by PPG is low amplitude with DBI 0.348 . CONCLUSION: CLEMENT[place] right leg 0.86, with toe index 0.515 , in the range of mild ischemia, asymptomatic PAD. Waveforms suggestive of femoral-popliteal disease. CLEMENT[place] left leg 0.97, with toe index 0.348 , in the range of no ischemia. Waveforms suggestive of femoral-popliteal disease, infrageniculate disease. Recommend follow up in 1 year. ++++++++++++++++++++++++++++++++++++ MEASUREMENTS: ++++++++++++++++++++++++++++++++++++ PRESSURES Right Brachial Brach P 130 mmHg Right Ankle DP AnkleDP P 114 mmHg Right Ankle PT AnklePT P 97 mmHg Right Great Toe GreatToe P 68 mmHg Right CLEMENTINA PT CLE[place] PT 0.735 Right CLE[place] DP CLE[place] DP 0.864 Right TBI TBI 0.515 Left Brachial Brach P 132 mmHg Left Ankle DP AnkleDP P 128 mmHg Left Ankle PT AnklePT P 128 mmHg Left Great Toe GreatToe P 46 mmHg Left CLEMENTINA PT CLE[place] PT 0.97 Left CLE[place] DP CLE[place] DP 0.97 Left TBI TBI 0.348 <Electronic Signature> 07/07/2024 03:40 PM Keshia White M.D. Keshia White MD [facility] Final Result * Complete PFT (pre/post [place], Lung Vol, Diff Capacity) ([id number], [id number], [id number], [id number]) (06/16/2024 3:00 PM AIR CONDITIONING EQUIPMENT MECHANIC) Narrative [facility] - 06/16/2024 3:00 PM AIR CONDITIONING EQUIPMENT MECHANIC Isamar Hernandez MD 06/19/2024 8:10 PM [facility] PULMONARY FUNCTION TEST REPORT Mani James Susan INTERPRETATION Please see scanned PFT report for raw values, flow-volume loop, and therapist's comments. Spirometry: Prebronchodilator FVC 3.65 L, 81% predicted. FEV1 2.13 L, 62% predicted. FEV1/FVC 58%. Postbronchodilator FVC 3.70 L, 82% predicted. FEV1 2.19 L, 64% predicted. FEV1/FVC 59%. Less than significant response to bronchodilator. Lung volumes: TLC 84% predicted. RV 101% predicted. Diffusing capacity: Unadjusted DLCO 49% predicted. 6-minute walk test: Patient walked 800 feet on room air with lowest reported SpO2 of 93%. IMPRESSION: 1. Moderate obstructive ventilatory limitation by gold criteria. 2. Less than significant response to bronchodilator, this does not preclude use. Clinical correlation advised. 3. Total lung capacity within normal limits. 4. Moderate reduction in unadjusted DLCO. ISAMAR HERNANDEZ MD Isamar Hernandez MD PFT ORDERABLES Final Resul t [facility] [address] [place] [address], [place] [phone] * Home O2 eval (06/16/2024 3:00 PM AIR CONDITIONING EQUIPMENT MECHANIC) Narrative [facility] - 06/16/2024 3:00 PM AIR CONDITIONING EQUIPMENT MECHANIC Isamar Hernandez MD 06/19/2024 8:10 PM [facility] PULMONARY FUNCTION TEST REPORT Mani Jacob Susan INTERPRETATION Please see scanned PFT report for raw values, flow-volume loop, and therapist's comments. Spirometry: Prebronchodilator FVC 3.65 L, 81% predicted. FEV1 2.13 L, 62% predicted. FEV1/FVC 58%. Postbronchodilator FVC 3.70 L, 82% predicted. FEV1 2.19 L, 64% predicted. FEV1/FVC 59%. Less than significant response to bronchodilator. Lung volumes: TLC 84% predicted. RV 101% predicted. Diffusing capacity: Unadjusted DLCO 49% predicted. 6-minute walk test: Patient walked 800 feet on room air with lowest reported SpO2 of 93%. IMPRESSION: 1. Moderate obstructive ventilatory limitation by gold criteria. 2. Less than significant response to bronchodilator, this does not preclude use. Clinical correlation advised. 3. Total lung capacity within normal limits. 4. Moderate reduction in unadjusted DLCO. ISAMAR HERNANDEZ MD Isamar Hernandez MD PFT ORDERABLES Final Resul t [facility] [address] [place] [address], * PFT GENERIC (SCAN ORDER) (06/16/2024) 06/16/2024 [facility] Scanned SCANNING Final Resu lt * USE TRANSESOPHAGEAL ECHO (06/15/2024 12:03 PM AIR CONDITIONING EQUIPMENT MECHANIC) Anatomical Region Laterality Modality Cardiac Accounts Receivable Coordinator 06/15/2024 11:3 9 AM AIR CONDITIONING EQUIPMENT MECHANIC Narrative 06/15/2024 4:01 PM AIR CONDITIONING EQUIPMENT MECHANIC CHARBEL Report Pat.Name: MANI DAVIS Pat.ID: [id number] .Date: 06/15/2024 : [id number], [email or web address] Exam Time: 11:39:00 AM Study Type:TRANSESOPHAGEAL ECHO (CHARBEL) Height: 72 in Weight: 170 lb BSA: 1.99 m2 Age: 9 1955,69Y Sex: M BP: 96/59 HR: 69 bpm Sonogrphr: Elizabeth Flores RD, [facility] Pat. Stat.:Outpatient Reason for Study:Post LAAO-Watchman Procedures: 2D, 3 Dimensional imaging with full Doppler and color interigation, Color Flow, Definity was used to enhance endocardial definition. Transesophageal Race: W ++++++++++++++++++++++++++++++++++++ SUMMARY: ++++++++++++++++++++++++++++++++++++ The left ventricular size is normal. The left ventricular systolic function is normal. The left atrial size is moderately enlarged. Watchman device seen well-seated in the ostium of the left atrial appendage. There is no obvious color flow Doppler seen around the device shoulders. No thrombus is noted on the device surface. No evidence of pericardial effusion. ++++++++++++++++++++++++++++++++++++ FINDINGS: ++++++++++++++++++++++++++++++++++++ CHARBEL: The patient was counseled and an informed consent was obtained. The posterior pharynx was anesthetized. A plastic bite was inserted into the mouth. IV sedation was administered. LV: The left ventricular size is normal. The left ventricular systolic function is normal. LA: The left atrial size is moderately enlarged. Watchman device seen well-seated in the ostium of the left atrial appendage. There is no obvious color flow Doppler seen around the device shoulders. No thrombus is noted on the device surface. PHILOMENA: No evidence of pericardial effusion. Prominent pericardial fat pad visualized. AV: Trace aortic regurgitation. MV: Trace mitral regurgitation. ++++++++++++++++++++++++++++++++++++ CHARBEL: ++++++++++++++++++++++++++++++++++++ Pre CHARBEL BP HR Post CHARBEL BP HR 96/59 69 95/64 68 Meds: Lidocaine gel was applied to throat. Propofol or Diprivan administered by Anesthesia Staff <Electronic Signature> 06/15/2024 04:01 PM Lianne Mccullough M.D. Procedure Note Lianne Mccullough MD - 06/15/2024 CHARBEL Report Pat.Name: MANI DAVIS Pat.ID: [id number] .Date: 06/15/2024 Refer.MD: [id number] john Exam Time: 11:39:00 AM Study Type:TRANSESOPHAGEAL ECHO (CHARBEL) Height: 72 in Weight: 170 lb BSA: 1.99 m2 Age: 9 1955,69Y Sex: M BP: 96/59 HR: 69 bpm Sonogrphr: Elizabeth Flores [facility], [facility] Pat. Stat.:Outpatient Reason for Study:Post LAAO-Watchman Procedures: 2D, 3 Dimensional imaging with full Doppler and color interigation, Color Flow, Definity was used to enhance endocardial definition. Transesophageal Race: W ++++++++++++++++++++++++++++++++++++ SUMMARY: ++++++++++++++++++++++++++++++++++++ The left ventricular size is normal. The left ventricular systolic function is normal. The left atrial size is moderately enlarged. Watchman device seen well-seated in the ostium of the left atrial appendage. There is no obvious color flow Doppler seen around the device shoulders. No thrombus is noted on the device surface. No evidence of pericardial effusion. ++++++++++++++++++++++++++++++++++++ FINDINGS: ++++++++++++++++++++++++++++++++++++ CHARBEL: The patient was counseled and an informed consent was obtained. The posterior pharynx was anesthetized. A plastic bite was inserted into the mouth. IV sedation was administered. LV: The left ventricular size is normal. The left ventricular systolic function is normal. LA: The left atrial size is moderately enlarged. Watchman device seen well-seated in the ostium of the left atrial appendage. There is no obvious color flow Doppler seen around the device shoulders. No thrombus is noted on the device surface. PHILOMENA: No evidence of pericardial effusion. Prominent pericardial fat pad visualized. AV: Trace aortic regurgitation. MV: Trace mitral regurgitation. ++++++++++++++++++++++++++++++++++++ CHARBEL: ++++++++++++++++++++++++++++++++++++ Pre CHARBEL BP HR Post CHARBEL BP HR 96/59 69 95/64 68 Meds: Lidocaine gel was applied to throat. Propofol or Diprivan administered by Anesthesia Staff <Electronic Signature> 06/15/2024 04:01 PM Lianne Mccullough M.D. Lianne Mccullough MD ECHO Final Result * PROTIME/INR, VENOUS (06/15/2024 9:06 AM AIR CONDITIONING EQUIPMENT MECHANIC) PROTIME 11.8 10.2 - 12.9 SEC 06/15/2024 9:28 AM AIR CONDITIONING EQUIPMENT MECHANIC [facility] INR 1.0 06/15/2024 9:28 AM AIR CONDITIONING EQUIPMENT MECHANIC [facility] Comment: Recommended INR Therapeutic Goals: 2.0-3.0 Routine Therapy 2.5-3.5 Mechanical Prosthetic Valves (High Risk) 06/15/2024 9:06 AM AIR CONDITIONING EQUIPMENT MECHANIC Lianne Mccullough MD LABORATORY Final Result [facility] [address] [place] [address], [place] [phone] * (ABNORMAL) BASIC METABOLIC PANEL (06/15/2024 9:06 AM [facility]) [facility] GLUCOSE 95 70 - 99 MG/DL 06/15/2024 9:38 AM [facility] BUN 23(H) 7 - 18 MG/DL 06/15/2024 9:38 AM [facility] CREATININE S/P/B 0.92 0.7 - 1.3 MG/DL 06/15/2024 9:38 AM [facility] SODIUM S/P/B 138 136 - 145 MMOL/L 06/15/2024 9:38 AM [facility] POTASSIUM S/P/B 4.2 3.5 - 5.1 MMOL/L 06/15/2024 9:38 AM [facility] CHLORIDE S/P/B 109 97 - 115 MMOL/L 06/15/2024 9:38 AM [facility] CO2 25.7 21 - 32 MMOL/L 06/15/2024 9:38 AM [facility] CALCIUM S/P/B 8.8 8.5 - 10.1 MG/DL 06/15/2024 9:38 AM [facility] ANION GAP 3.3 2 - 10 MMOL/L 06/15/2024 9:38 AM [facility] BUN CREATININE RATIO 24.9 6 - 26 06/15/2024 9:38 AM [facility] GFR ESTIMATE 89(L) >90 ML/MIN/1.7 3 M2 06/15/2024 9:38 AM [facility] Comment: NOTE: eGFR is not calculated for patients <18 years of age or gender unknown. This is an estimated GFR calculation using the new CKD EPI creatinine equation without race and so does not require a correction factor for race. This estimated GFR should not be used for calculating drug doses. 06/15/2024 9:06 AM AIR CONDITIONING EQUIPMENT MECHANIC Lianne Mccullough MD LABORATORY Final Result [facility] [address] [place] [address], * (ABNORMAL) CBC W/DIFF AUTOMATED (06/15/2024 9:06 AM AIR CONDITIONING EQUIPMENT MECHANIC) WBC 12.80(H) 4.5 - 11.0 x10'3/uL 06/15/2024 9:15 AM [facility] RBC 5.08 4.70 - 6.10 x10'6/uL 06/15/2024 9:15 AM [facility] HGB 15.8 14.0 - 18.0 G/DL 06/15/2024 9:15 AM [facility] HCT 47.7 43.0 - 54.0 % 06/15/2024 9:15 AM [facility] MCV 93.9 80.0 - 94.0 FL 06/15/2024 9:15 AM [facility] MCH 31.1(H) 27.0 - 31.0 PG 06/15/2024 9:15 AM [facility] MCHC 33.1 32.0 - 36.0 G/DL 06/15/2024 9:15 AM [facility] RDW 15.5(H) 11.5 - 14.5 % 06/15/2024 9:15 AM [facility] PLT 369 130 - 400 x10'3/uL 06/15/2024 9:15 AM [facility] MPV 9.7 9.3 - 12.2 FL 06/15/2024 9:15 AM [facility] DIFFERENTIAL TYPE AUTOMATED DIFFERENTIAL 06/15/2024 9:15 AM [facility] NEUTROPHILS % 69.8 % 06/15/2024 9:15 AM [facility] LYMPHOCYTES % 15.9 % 06/15/2024 9:15 AM [facility] MONOCYTES % 10.2 % 06/15/2024 9:15 AM [facility] EOSINOPHILS 2.5 % 06/15/2024 9:15 AM [facility] BASOPHILS 0.9 % 06/15/2024 9:15 AM [facility] IMMATURE GRANS % 0.7 % 06/15/19 9:15 AM [facility] ABS. NEUTROPHILS 8.94(H) 1.80 - 7.70 x10'3/uL 06/15/2024 9:15 AM [facility] ABS. LYMPHOCYTES 2.04 1.00 - 4.80 x10'3/uL 06/15/2024 9:15 AM [facility] ABS. MONOCYTES 1.30(H) 0.30 - 0.82 x10'3/uL 06/15/2024 9:15 AM [facility] ABS. EOSINOPHILS 0.32 0.04 - 0.54 x10'3/uL 06/15/2024 9:15 AM [facility] ABS. BASOPHILS 0.11(H) 0.01 - 0.08 x10'3/uL 06/15/2024 9:15 AM [facility] ABS. IMMATURE GRANULOCYTES 0.09 0.00 - 0.49 x10'3/uL 06/15/2024 9:15 AM [facility] 06/15/2024 9:06 AM AIR CONDITIONING EQUIPMENT MECHANIC us Lianne Mccullough MD LABORATORY Final Result [facility] [address] [place] [address], [place] [phone] * CT CHEST WO CON (06/01/2024 3:07 PM AIR CONDITIONING EQUIPMENT MECHANIC) Anatomical Region Laterality Modality Chest Computed Tomogra phy 06/05/2024 9:51 AM AIR CONDITIONING EQUIPMENT MECHANIC Impressions 06/05/2024 9:57 AM AIR CONDITIONING EQUIPMENT MECHANIC IMPRESSION: Saber-sheath morphology of the trachea, stable. Suggestive of obstructive lung disease. 2.6 mm left upper lobe nodule, stable compared with 02/14/2024 and 08/09/2023. Compared with 02/14/2024: Resolution of most of the nodular opacities of the left lung base and inferior lingula. Small amount architectural distortion and nodularity persists in the inferior lingula, most likely postinflammatory. 12 month follow-up CT without contrast recommended as a precaution. Moderate right pleural effusion with associated architectural distortion changes of the adjacent basilar right lower lobe and inferior right middle lobe, stable and chronic. No new or suspicious findings. Debris in the lower trachea and right mainstem bronchus is present. Midportion ascending aortic aneurysm measuring 4.7 cm, stable. Stable left atrial appendage occlusion device in place. Bilateral gynecomastia. Atherosclerosis and coronary calcifications. Mild ascites noted in the upper abdomen at the edge of the [id number]. Moderate diffuse degenerative disc disease and facet arthropathy. Referred By: ISAMAR HERNANDEZ Interpreted By: Jhoan Pete MD, 06/05/2024 9:51 AM Narrative 06/05/2024 9:57 AM AIR CONDITIONING EQUIPMENT MECHANIC [facility] [address] [place], [place] [address] EXAMINATION: CT CHEST WITHOUT CONTRAST EXAM DATE/TIME: 06/01/2024 2:59 PM REASON FOR EXAM: nodules Pulmonary nodule follow-up COMPARISON: 02/14/2024, 08/09/2023 TECHNIQUE: Computed tomography was performed of the chest without intravenous contrast. Dose lowering technique was used for this study which may include, but is not limited to, dose reduction techniques, automated exposure control, use of iterative reconstruction and ALARA (As low As Reasonably Achievable)/Image Gently techniques. FINDINGS: Saber-sheath morphology of the trachea, stable. Suggestive of obstructive lung disease. 2.6 mm left upper lobe nodule axial image 32, stable compared with 02/14/2024 and 08/09/2023. Compared with 02/14/2024: Resolution of most of the nodular opacities of the left lung base and inferior lingula. Small amount architectural distortion and nodularity persists in the inferior lingula, most likely postinflammatory. Follow-up recommended as a precaution. Moderate right pleural effusion with associated architectural distortion changes of the adjacent basilar right lower lobe and inferior right middle lobe, stable and chronic. No new or suspicious findings. Debris in the lower trachea is present. Debris in the right mainstem bronchus also present. On soft tissue windows, no axillary or supraclavicular lymphadenopathy. Midportion ascending aortic aneurysm measuring 4.7 cm, stable. Stable left atrial appendage occlusion device in place. Bilateral gynecomastia. Atherosclerosis and coronary calcifications. On mediastinal windows, no evidence of hilar or mediastinal lymphadenopathy. Heart size normal. No pericardial effusion. Limited evaluation of the upper abdomen demonstrates no acute abnormality. Mild ascites noted in the upper abdomen at the edge of the [id number]. On bone windows, no suspicious skeletal lesion or acute compression fracture deformity. Moderate diffuse degenerative disc disease and facet arthropathy. Procedure Note Jhoan Pete MD - 06/05/[address] [address] EXAMINATION: CT CHEST WITHOUT CONTRAST EXAM DATE/TIME: 06/01/2024 2:59 PM REASON FOR EXAM: nodules Pulmonary nodule follow-up COMPARISON: 02/14/2024, 08/09/2023 TECHNIQUE: Computed tomography was performed of the chest withoutintravenous contrast. Dose lowering technique was used for this study which may include, but isnot limited to, dose reduction techniques, automated exposure control, use of iterativereconstruction and ALARA (As low As Reasonably Achievable)/Image Gently techniques. FINDINGS: Saber-sheath morphology of the trachea, stable. Suggestive of obstructivelung disease. 2.6 mm left upper lobe nodule axial image 32, stable compared with02/14/2024 and 08/09/2023. Compared with 02/14/2024: Resolution of most of the nodular opacities ofthe left lung base and inferior lingula. Small amount architecturaldistortion and nodularity persists in the inferior lingula, most likelypostinflammatory. Follow-up recommended as a precaution. Moderate right pleural effusion with associated architectural distortionchanges of the adjacent basilar right lower lobe and inferior right middlelobe, stable and chronic. No new or suspicious findings. Debris in the lower trachea is present. Debris in the right mainstembronchus also present. On soft tissue windows, no axillary or supraclavicular lymphadenopathy. Midportion ascending aortic aneurysm measuring 4.7 cm, stable. Stable left atrial appendage occlusion device in place. Bilateral gynecomastia. Atherosclerosis and coronary calcifications. On mediastinal windows, no evidence of hilar or mediastinallymphadenopathy. Heart size normal. No pericardial effusion. Limited evaluation of the upper abdomen demonstrates no acuteabnormality. Mild ascites noted in the upper abdomen at the edge of frqvqnil-[id number]. On bone windows, no suspicious skeletal lesion or acute compressionfracture deformity. Moderate diffuse degenerative disc disease and facetarthropathy. IMPRESSION: Saber-sheath morphology of the trachea, stable. Suggestive of obstructivelung disease. 2.6 mm left upper lobe nodule, stable compared with 02/14/2024 and08/09/2023. Compared with 02/14/2024: Resolution of most of the nodular opacities ofthe left lung base and inferior lingula. Small amount architecturaldistortion and nodularity persists in the inferior lingula, most likelypostinflammatory. 12 month follow- up CT without contrast recommended as aprecaution. Moderate right pleural effusion with associated architectural distortionchanges of the adjacent basilar right lower lobe and inferior right middlelobe, stable and chronic. No new or suspicious findings. Debris in the lower trachea and right mainstem bronchus is present. Midportion ascending aortic aneurysm measuring 4.7 cm, stable. Stable left atrial appendage occlusion device in place. Bilateral gynecomastia. Atherosclerosis and coronary calcifications. Mild ascites noted in the upper abdomen at the edge of qrwosgda-dk-zuny. Moderate diffuse degenerative disc disease and facet arthropathy. Referred By: ISAMAR HERNANDEZ Interpreted By: Jhoan Pete MD, 06/05/2024 9:51 AM us Isamar Hernandez MD CT Final Resul t * HEPATITIS C ANTIBODY (01/27/2023 10:10 PM CDT) [facility] HEPATITIS C AB NON-REACTI VE NON-REACTI VE 05/13/2023 7:10 AM AIR CONDITIONING EQUIPMENT MECHANIC [facility] 01/27/2023 10:1 0 PM CDT us Landen Velasco MD LABORATORY Final Result [facility] [address] [place] [id number], * LIPID PANEL (01/11/2023 4:11 PM CDT) [facility] CHOLESTEROL 78 <200 MG/DL 01/11/2023 5:20 PM CDT [facility] TRIGLYCERIDES 59 <150 MG/DL 01/11/2023 5:20 PM CDT [facility] HDL 51 >40.0 MG/DL 01/11/2023 5:20 PM CDT [facility] LDL (CALCULATED) 15 <100 MG/DL 01/12/20 5:20 PM CDT [facility] NON HDL CHOLESTEROL 27 <130 MG/DL 01/11 5:20 PM CDT [facility] CHOL/HDL RATIO 1.5 0.0 - 4.5 01/11/2023 5:20 PM CDT [facility] VLDL CALCULATION 12 5 - 55 MG/DL 01/11/2023 5:20 PM CDT [facility] LIPID INTERPRETATION 01/11/2023 5:20 PM CDT [facility] Comment: [facility] REPORT RECOMMENDATIONS: ADULT CHILD LOW RISK: CHOLESTEROL <200 <170 TRIGLYCERIDE <150 --- HDL >=60 --- LDL <100 <110 BORDERLINE: CHOLESTEROL 200-239 170-199 TRIGLYCERIDE 150-199 --- HDL 40-59 --- LDL 100-159 110-129 HIGH RISK: CHOLESTEROL >=240 >=200 TRIGLYCERIDE >=200 --- HDL <40 --- LDL >=160 >=130 01/11/2023 4:11 PM CDT Karina Mojica NP LABORATORY Final Result [facility] [address] [place] [address], from Last 3 Months or Most Recently Relevant to Health Maintenance Insurance [employer] Advance Directives Documents on File Type Date Recorded Patient Dumpman Expl anation Advance Directives and Living Will 07/30/2022 1:48 PM 07/26/2022 [place] [employer] * Full Code (Latest Code Status on File) Date Activated Date Inactivated Comments 04/11/2024 1:56 PM 04/11/2024 7:02 PM * Full Code Date Activated Date Inactivated Comments 03/22/2023 4:55 AM 03/26/2023 8:25 PM * Full Code Date Activated Date Inactivated Comments 03/12/2023 8:17 PM 03/16/2023 3:12 PM * Full Code Date Activated Date Inactivated Comments 11/05/2022 11:01 AM 11/05/2022 5:12 PM * Full Code Date Activated Date Inactivated Comments 07/25/2022 10:14 AM 07/30/2022 9:00 PM Care Teams Quality Control Manager Relationship Specialty Start Date End Date Karina Mojica NP [address] [place] [address] PCP - General NURSE PRACTITIONER 09/28/20 Keshia White MD [facility] [address] [place] [address] Henderson Riveter INTERVENTIONAL CARDIOLOGY 09/08/19 Tomi Bermeo MD [address] [place] [address] Medical Oncologist INTERNAL MEDICINE HEMATOLOGY & ONCOLOGY 04/03/24 Isamar Hernandez MD [address] [place] [address] [address] [place] [address] Consulting Physician PULMONARY DISEASE 04/03/24
--- OUTSIDE RECORDS SUMMARY | 2024-07-24 15:29 | XMS_ITS | Encounter Summary ---
Author Organization [facility] Address [facility] [place] [address] Care Team Providers Care It Telecom Technician Name Role Phone Niko Albarran MD Unavailable [phone] Keshia White MD Unavailable [phone] Karina Mojica CLINICAL WRITER Primary Care Provider [phone] Landen Velasco MD Unavailable [phone] Tomi Bermeo MD Unavailable Gonzalez Rangel MD Unavailable [phone] Encounter Details Date Type Department Care Team (Late st Contact Info) Description 06/02/2023 [facility], [address] [address] Viji Hernández MA Social History Tobacco Use Types Packs/Day Years Used Date Smoking Tobacco: Every Day Cigarettes Passive Smoke Exposure: Current Smokeless Tobacco: Never 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 Alcohol Use Standard Drinks/Week Comments Yes 16.7 (1 standard drink = 0.6 oz pure alcohol) 3 per day beer Humiliation, Afraid, Rape, and Kick questionnair e [...] Answer Date Recorded Patient Health Questionnaire-2 Score 1 07/22/2022 Hunger Vital Sign Answer Date Recorded Within [...] Gilliland RN Active * Do you have serious [...] Description 08/31/2024 1:00 PM CDT Office Visit [facility] Multispecialty [facility] - [facility] [address] [facility] [address] [place] [address] Gonzalez Rangel MD [address] [place] [address] [address] [place] [address] 10/16/2024 12:30 PM CDT Office Visit [facility] [facility], [address] [place], [place] [phone] Jadyn Colvin PA-C [facility] [address] [place] [address] Afua Nguyen MD Three [facility]. [facility] [address] [place], [place] [phone] 01/03/2025 3:00 PM CDT Appointment [facility] [address] [facility] [place] [address] Keshia White MD Three [facility]. [address] [place], [place] [phone] 01/17/2025 2:15 PM CDT Office Visit [facility] [facility], [address] [place], [place] [phone] Keshia White MD Three [facility]. [facility] [address] [place], [place] [id number] documented as of this encounter Goals Goal Patient Goal Type Associated Problems Recent Progress Patient-Stated? Author Family - family caregiver with be involved in care transitions and discharge planning Lifestyle Sheryl Asif, RN documented as of this encounter Procedures Procedure Name Priority Date/Time Associated Diagnosis Comments COMPREHENSIVE METABOLIC PANEL Routine 05/25/2023 CBC, MANUAL DIFF Routine 05/25/2023 THYROXINE, TOTAL Routine 05/25/2023 THYROID STIM HORMONE TSH Routine 05/25/2023 documented in this encounter Results * THYROXINE, TOTAL (05/25/2023) TOTAL T4 11.20 05/25/2023 us Default History Genericprovider LABORATORY Final Result * COMPREHENSIVE METABOLIC PANEL (05/25/2023) Pathologist [facility] SODIUM S/P/B 134 GLUCOSE 81 mg/dL AST 18 BUN 22 CREATININE S/P/B 0.80 0.7 - 1.3 CALCIUM S/P/B 8.6 POTASSIUM S/P/B 4.2 CHLORIDE S/P/B 100 ALT 17 GFR ESTIMATE >60 us Default History Genericprovider LABORATORY Edited Result - Final * CBC, MANUAL DIFF (05/25/2023) Pathologist [facility] WBC 8.3 HGB 12.6 HCT 39.3 PLT 461 us Default History Genericprovider LABORATORY Edited Result - Final * THYROID STIM HORMONE, TSH (05/25/2023) Pathologist [facility] TSH 9.490 us Default History Genericprovider LABORATORY Edited Result - Final documented in this encounter Visit Diagnoses Not on filedocumented in this encounter Care Teams It Telecom Technician Relationship Specialty Start Date End Date Karina Mojica CLINICAL WRITER [address] [place] [address] PCP - General NURSE PRACTITIONER 09/28/20 Niko Albarran MD 3 [facility] [address] [place] [phone] [place] Cable Dispatcher CARDIOVASCULAR DISEASE 05/11/19 04/02/24 Keshia White MD Three [facility]. [address] [place], [place] [id number] [place] [employer] Dispatcher INTERVENTIONAL CARDIOLOGY 09/08/19 Landen Velasco MD [address] [place], [place] [phone] Referring Physician EMERGENCY MEDICINE 04/07/23 4 Tomi Bermeo MD [address] [place] [id number] Medical Oncologist INTERNAL MEDICINE HEMATOLOGY & ONCOLOGY 04/03/24 Gonzalez Rangel MD [address] [place] [phone] Consulting Physician PULMONARY DISEASE 04/03/24 documented as of this encounter
--- OUTSIDE RECORDS SUMMARY | 2024-07-24 15:29 | XMS_ITS | Encounter Summary ---
Author Organization [facility] Address [address] [place] [address] Care Team Providers Care Per Diem Clerk Name Role Phone Niko Albarran MD Unavailable [phone] Keshia White MD Unavailable [phone] Karina Mojica DIAMOND DRILLER Primary Care Provider [phone] Landen Velasco MD Unavailable [phone] Tmoi Bermeo MD Unavailable Gonzalez Rangel MD Unavailable [phone] Encounter Details Date Type Department Care Team (Late st Contact Info) Description 11/25/2022 MyChart Message Enc [facility] Medical Group - [facility] [address] [place], [place] [id number] Ubaldo, [facility] Provider Air Quality Message Social History Tobacco Use Types Packs/Day Years Used Date Smoking Tobacco: Every Day Cigarettes Passive Smoke Exposure: Current Smokeless Tobacco: Never Comments:Provider to summer counselor Alcohol Use Standard Drinks/Week Comments Yes 16.7 (1 standard drink = 0.6 oz pure alcohol) Humiliation, Afraid, Rape, and Kick questionnair e Answer Date Recorded Within the last year, have y ou been afraid of your partner or ex-partner? No 07/26/2022 Within the last year, have y ou been humiliated or emotionally abused in other ways by your partner or ex-partner? No Within the last year, have y ou been kicked, hit, slapped, or otherwise physically hurt by your partner or ex-partner? No 07/26/2022 Within the last year, have y ou been raped or forced to have any kind of sexual activity by your partner or ex-partner? No 07/26/2022 AUDIT-C Answer Date Recorded Frequency of Alcohol [...] care, and heating? Not hard at all 07/26/2022 PHQ-2 Answer Date Recorded Patient Health Questionnaire-2 Score 1 07/22/2022 Hunger Vital Sign Answer Date Recorded Within the past 12 months, y ou worried that your food would run out before you got the money to buy more. Never true 07/26/19 23 Within the past 12 months, t he food you bought just didn't last and you didn't have money to get more. Never true 07/26/2022 PRAPARE - Transportation Answer Date Re corded In the past 12 months, has l ack of transportation kept you from medical appointments or from getting medications? No 07/02 In the past 12 months, has l ack of transportation kept you from meetings, work, or from getting things needed for daily living? No 07/26/2022 Housing Stability Vital Sign Answer Issac e Recorded In the last 12 months, was t here a time when you were not able to pay the mortgage or rent on time? No 07/26/2022 In the last 12 months, how many places have you lived? 1 07/26/2022 In the last 12 months, was t here a time when you did not have a steady place to sleep or slept in a fdc (including now)? No 07/26/2022 Sex and Gender Information Value Date Recorded Sex Assigned at Male 03/22/2023 9:33 AM CDT Legal Sex Male 11:53 AM CDT Gender Identity Male 03/22/2023 9:33 AM CDT Sexual Orientation Not on file Occupation Industry Job Start Date Job End Date Not on file Not on file Not on file Not on file COVID-19 Exposure Response Date Recorded In the last 10 days, have yo u been in contact with someone who was confirmed or suspected to have Coronavirus/COVID-19? No / Unsure 11/05/2022 7:16 AM CDT documented as of this encounter Functional Status * RETIRED Are you deaf or do you have serious difficulty hearing Answer Date of Assessment Author Status No 07/26/2022 12:32 AM INTERNAL CONTROL SPECIALIST Acti ve * RETIRED Are you blind or do you have serious difficulty seeing, even when wearing glasses? Answer Date of Assessment Author Status No 07/26/2022 12:32 AM INTERNAL CONTROL SPECIALIST Acti ve * Do you have serious difficulty walking or climbing stairs? Answer Date of Assessment Author Status Yes 07/26/2022 12:32 AM Leatha Junior RN Active * Do you have difficulty dressing or bathing? Answer Date of Assessment Author Status No 07/26/2022 12:32 AM Leatha Junior RN Active * Because of a physical, mental, or emotional condition, do you have difficulty doing errands alone such as visiting a doctor's office or shopping? Answer Date of Assessment Author Status No 07/26/2022 12:32 AM Leatha Junior RN Active documented as of this encounter Mental Status * Because of a physical, mental, or emotional condition, do you have serious difficulty concentrating, remembering, or making decisions? Answer Entry Date Author Status No 07/26/2022 12:32 AM Leatha Junior RN Active documented in this encounter Plan of Treatment Upcoming Encounters Date Type Department Care Team (Late st Contact Info) Description 08/31/2024 1:00 PM CDT Office Visit [facility] Medical Group Multispecialty Care - [facility] [address] [facility] [address] [place] [address] Gonzalez Rangel MD [address] [place] [address] [address] [place] [address] 10/16/2024 12:30 PM CDT [facility], [address] [place], [place] [address] Jadyn Colvin PA-C Three [facility] [address] [place], [place] [address] Afua Nguyen MD Three [facility]. [facility] [address] [place], [place] [address] 01/03/2025 3:00 PM CDT Appointment [facility] [place] [address] Keshia White MD Three [facility]. [address] [place], [place] [address] 01/17/2025 2:15 PM CDT Office Visit [facility] THREE [facility], [address] [place], [place] [address] Keshia White MD Three [facility]. [facility] [address] [place], [place] [address] documented as of this encounter Goals Goal Patient Goal Type Associated Problems Recent Progress Patient-Stated? Author Family - family caregiver with be involved in care transitions and discharge planning Lifestyle No Sheryl Albarran, RN documented as of this encounter Visit Diagnoses Not on filedocumented in this encounter Care Teams Per Diem Clerk Relationship Specialty Start Date End Date Karina Mojica, DIAMOND DRILLER [address] [place], [place] [id number] PCP - General NURSE PRACTITIONER 09/28/20 Niko Albarran MD 3 [facility] [address] [place] [address] [place] [employer] Operator CARDIOVASCULAR DISEASE 05/11/19 04/02/24 Keshia White MD Three [facility]. [facility] [address] [place] [address] [place] [employer] Operator INTERVENTIONAL CARDIOLOGY 09/08/19 Landen Velasco MD 1 [facility] [place] [address] Referring Physician EMERGENCY MEDICINE 04/07/23 4 Tomi Bermeo MD [address] [place] [address] Medical Oncologist INTERNAL MEDICINE HEMATOLOGY & ONCOLOGY 04/03/24 Gonzalez Rangel MD [address] [place] [address] [address] [place] [address] Consulting Physician PULMONARY DISEASE 04/03/24 documented as of this encounter
--- OUTSIDE RECORDS SUMMARY | 2024-07-24 15:29 | XMS_ITS | Encounter Summary ---
Author Organization [facility] Address [address] [place] [address] Care Team Providers Care Coffee Attendant Name Role Phone Niko Albarran MD Unavailable [phone] Keshia White MD Unavailable [phone] Karina Mojica LIGHT BULB TESTER Primary Care Provider [phone] Landen Velasco MD Unavailable [phone] Tomi Bermeo MD Unavailable Gonzalez Rangel MD Unavailable [phone] Encounter Details Date Type Department Care Team (Late st Contact Info) Description 10/24/2020 in3Dgallery Message [facility] Patient Accounts [address] [place] [address] [facility] Notice of account balance Social History Tobacco Use Types Packs/Day Years [...] Assessment Author Status No 05/05/2019 11:05 PM DOCUMENT SCANNER Acti ve * RETIRED Are you blind or do you have serious difficulty seeing, even when wearing glasses? Answer Date of Assessment Author Status No 05/05/2019 11:05 PM DOCUMENT SCANNER Acti ve * Do you have serious difficulty walking or climbing stairs? Answer Date of Assessment Author Status No 05/05/2019 11:05 PM Shaye Wylie, ADELINE Active * Do you have difficulty dressing [...] Description 08/31/2024 1:00 PM CDT Office Visit [facility] Medical Group Multispecialty Care - [address] [place] [address] Gonzalez Rangel MD [address] [place] [address] [address] [place] [address] 10/16/2024 12:30 PM CDT [facility], [address] [place] [address] Jadyn Colvin PA-C [facility] [address] [place] [address] Afua Nguyen MD Three [facility]. [address] [place], [place] [address] 01/03/2025 3:00 PM CDT Appointment [facility] Vascular Lab ONE [facility] [place] [address] Keshia White MD Three [facility]. [address] [place] [address] 01/17/2025 2:15 PM CDT Office Visit [facility] THREE [facility], [address] [place], [place] [address] Keshia White MD Three [facility]. [facility] [address] [place], [place] [address] documented as of this encounter Visit Diagnoses Not on filedocumented in this encounter Care Teams Coffee Attendant Relationship Specialty Start Date End Date Karina Mojica NP [address] [place] [address] [place] [address] PCP - General NURSE PRACTITIONER 09/28/20 Niko Albarran MD 3 [facility] [address] [place] [phone] [place] Clarity Developer CARDIOVASCULAR DISEASE 05/11/19 04/02/24 Keshia White MD Three [facility]. [address] [place], [place] [address] [place] Clarity Developer INTERVENTIONAL CARDIOLOGY 09/08/19 Landen Velasco MD 1 [facility] [place] [address] Referring Physician EMERGENCY MEDICINE 04/07/23 4 Tomi Bermeo MD [address] [place] [id number] Medical Oncologist INTERNAL MEDICINE HEMATOLOGY & ONCOLOGY 04/03/24 Gonzalez Rangel MD [address] [place] [phone] Consulting Physician PULMONARY DISEASE 04/03/24 documented as of this encounter
--- OUTSIDE RECORDS SUMMARY | 2024-07-24 15:29 | XMS_ITS | Encounter Summary ---
Author Organization [facility] Address [place] [address] Care Team Providers Care Fish Worm Grower Name Role Phone Manish Sanchez MD Primary Care Provider [phone] Niko Albarran MD Unavailable [phone] Keshia White MD Unavailable [phone] Karina Mojica GRIDDLE COOK Primary Care Provider [phone] Landen Velasco MD Unavailable [phone] Tomi Bermeo MD Unavailable Gonzalez Rangel MD Unavailable [phone] Encounter Details Date Type Department Care Team (Late st Contact Info) Description 05/08/2019 Hospital Follow-up Call [facility] [place] [address] Herlinda Moeller, Principal Quality Engineer Social History Tobacco Use Types Packs/Day Years Used Date Smoking Tobacco: Every Day Cigarettes Smokeless Tobacco: Never Alcohol Use Standard Drinks/Week Comments Yes 16.7 (1 standard drink = 0.6 oz pure alcohol) Sex and Gender Information Value Date Recorded Sex Assigned at Male 03/22/2023 9:33 AM CDT Legal Sex Male 11:53 AM CDT Gender Identity Male 03/22/2023 9:33 AM CDT Sexual Orientation Not on file documented as of this encounter Functional Status * RETIRED Are you deaf or do you have serious difficulty hearing Answer Date of Assessment Author Status No 05/05/2019 11:05 PM GROUP ACTIVITIES AIDE Acti ve * RETIRED Are you blind or do you have serious difficulty seeing, even when wearing glasses? Answer Date of Assessment Author Status No 05/05/2019 11:05 PM CHATA Acti ve * Do you have serious [...] 08/31/2024 1:00 PM CDT Office Visit [facility] Medical Group Multispecialty Care - [facility] [address] [facility] [place] [address] Gonzalez Rangel MD [address] [place] [address] [address] [place] [address] 10/16/2024 12:30 PM CDT Office Visit [facility] THREE [facility], [address] [place], [place] [address] Jadyn Colvin PA-C Three [facility] [address] [place], [place] [address] Afua Nguyen MD [facility]. [address] [place], [place] [address] 01/03/2025 3:00 PM CDT Appointment [facility] Vascular Lab ONE [facility] [address] Keshia White MD Three [facility]. [address] [place], [place] [address] 01/17/2025 2:15 PM CDT Office Visit [facility] THREE [facility], [address] [place], [place] [id number] Keshia White MD Three [facility]. [address] [place], [place] [address] documented as of this encounter Visit Diagnoses Not on filedocumented in this encounter Care Teams Fish Worm Grower Relationship Specialty Start Date End Date Manish Sanchez MD [address] [place] [address] PCP - General FAMILY PRACTICE 01/09/18 09/27/20 Karina Mojica NP [address] [place] [address] [place] [address] PCP - General NURSE PRACTITIONER 09/28/20 Niko Albarran MD 3 [facility] [place] [address] [place] [address] [place] Grain Receiver CARDIOVASCULAR DISEASE 05/11/19 04/02/24 Keshia White MD Three [facility]. [address] [place], [place] [address] [place] [employer]rain Receiver INTERVENTIONAL CARDIOLOGY 09/08/19 Landen Velasco MD [address] [place] [address] Referring Physician EMERGENCY MEDICINE 04/07/23 4 Tomi Bermeo MD [address] [place] [address] Medical Oncologist INTERNAL MEDICINE HEMATOLOGY & ONCOLOGY 04/03/24 Gonzalez Rangel MD [address] [place] [address] Consulting Physician PULMONARY DISEASE 04/03/24 documented as of this encounter
--- OUTSIDE RECORDS SUMMARY | 2024-07-24 15:29 | XMS_ITS ---
Author Organization [facility] Address [address] [place], [place] [address] Care Team Providers Care Senior Javascript Developer Name Role Phone Ezequiel Anne Unavailable Unavailable LORA MUSE Unavailable [phone] REASON FOR VISIT Patient presents for at-risk foot care . The patient has painful toenails and calluses that are causing difficulty with ambulation and shoegear. The onset is gradual Encounters Encounter Location Date Provider Diagnosis [facility] [address] [facility] [address] [place], [place] [id number] 02/02/2024 LORA MUSE Tinea unguium B35.1 ; Acquired keratosis [keratoderma] palmaris et plantaris L85.1 ; Atherosclerosis of stillaguamish arteries of extremities with intermittent claudication, bilateral legs I70.213 ; Pain in right foot M79.671 and Pain in left foot M79.672 Assessments Encounter Date Diagnosis (ICD Code) Assessment Notes Treatment Notes Treatment Clinical Notes Section Notes 02/02/2024 Tinea unguium (ICD-10 - B35.1) Nails [...] and pared utilizing a #15 blade 02/02/2024 Atherosclerosis of stillaguamish arteries of extremities with intermittent claudication, bilateral legs (ICD-10 - I70.213) 02/02/2024 Pain in right foot (ICD-10 - M79.671) 02/02/2024 Pain in left foot (ICD-10 - [...] problems develop. Provider Name:LORA MUSE, 02:20:00 PM, [address] [place] [address], [address], [id number], Progress Notes * SUSAN WILLIAMOB:1955 (68 yo M)Acc No.[id number]:02/02/2024 Patient: MANI CANNON Provider: Jaye Muse DPM :1955 A ge:68 Y S ex:Male Date:02/02/2024 Address:[address] [place] [address] [facility] Subjective: * Chief Complaints: * 1 . Patient presents for at-risk foot care . The patient has painful toenails and calluses that are causing difficulty with ambulation and shoegear. The onset is gradual. * HPI: H PI: General care P atient presents to the office for at risk foot care. Patient states that their nails are thickened, elongated and painful. Patient states that it is aggravated by shoe gear. Onset is gradual. Patient denies being diabetic., Patient is taking prescription blood thinners., Date last seen by Dr. Anne was last week., Initials mf. * ROS: G eneral / Constitutional: Patient denies c hills, fatigue, fever. M usculoskeletal: Patient denies b roken foot bone, weakness. ? S kin: Patient denies u lcerations, warts. P atient complains of f ungal nails, discoloration, dry skin, calluses and corns. N eurologic: Patient denies b alance difficulty, confusion, difficulty speaking, dizziness. * Medical History: Objective: * Examination: P hysical Examination: General appearance: [...] - L85.1 3 . A therosclerosis of stillaguamish arteries of extremities with intermittent claudication, bilateral legs - I70.213 4 . P ain in right foot - M79.671 5 . P ain in left foot - M79.672 Plan: * Treatment: 2. A cquired keratosis [keratoderma] palmaris et plantaris Notes: A total of 1 corns or calluses, as described in the note above, were cut and pared utilizing a #15 blade * Follow Up: 1 0 - 12 weeks (Reason: At-Risk Foot care, sooner if problems develop.) * Billing Information: * Visit Code: 20433 Office Visit, Est Pt., Level 3. * Procedure Codes: * Sign off status: Completed true * Provider: Jaye Muse DPM Date: 0 02/02/2024 Generated for Des rene/Rosa/Cathy on: 0 07/24/2024 03:28 PM CITY SANITARIAN History and Physical Notes * HPI (History [...] Date last seen by Dr. Anne was last week., Initials mf Examination Category Sub-Category Detail Notes [...]
--- OUTSIDE RECORDS SUMMARY | 2024-07-24 15:29 | XMS_ITS | Clinical Summary ---
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 characterize. 3. Prominent upper abdominal lymph nodes are seen. There is diffuseinduration within the mesentery with borderline sized and mildly enlargedlymph nodes. Borderline sized retroperitoneal lymph nodes are seen aswell. These are indeterminate but do appear slightly more pronounced ontoday's study when compared to the prior. Follow-up recommended. 4. Abdominal ascites as well as diffuse edema again seen. This isprobably slightly improved when compared to the prior. There is someomental induration and some peritoneal thickening. The etiology of thisis uncertain. Correlate with any symptoms of peritonitis. Neoplasticetiology not entirely excluded. 5. Apparent thickening of the small bowel loops especially within the leftabdomen could relate to the edema and ascites. Other etiologies ofenteritis not excluded Electronically signed by: JOSÉ MIGUEL BEVERLY MD Date of Signature: 07/01/2023 16:39:43 Tomi Bermeo MD IMG CT ORDERABLES Final Result from Last 3 Months or Most Recently Relevant to Health Maintenance Insurance MEDICARE C [employer] Care Teams Newsperson Relationship Specialty Start Date End Date Karina Mojica, FILTERING MACHINE TENDER HELPER, VOCATIONAL COORDINATOR [address] [place] [address] PCP - General Family Medicine 11/05/22 Tomi Bermeo MD [address] [place] [id number] Consulting Physician Oncology 02/16/23
--- OUTSIDE RECORDS SUMMARY | 2024-07-24 15:29 | XMS_ITS | Encounter Summary ---
Author Organization [facility] Address [facility] [place] [address] Care Team Providers Care Director Global Market Research Name Role Phone Manish Sanchez MD Primary Care Provider + [phone] Niko Albarran MD Unavailable [phone] Keshia White MD Unavailable [phone] Karina Mojica INSPECTOR INTEGRATED CIRCUITS Primary Care Provider + [phone] Landen Velasco MD Unavailable [phone] Tomi Bermeo MD Unavailable Gonzalez Rangel MD Unavailable [phone] Encounter Details Date Type Department Care Team (Late st Contact Info) Description 05/09/2019 Hospital Follow-up Call [facility] [place] [address] Herlinda Moeller, Traffic Routing Engineer Social History Tobacco Use Types Packs/Day [...] Assessment Author Status No 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 [address] [facility] [place] [address] Gonzalez Rangel MD [address] [place] [address] [address] [place] [address] 10/16/2024 12:30 PM CDT Office Visit [facility] THREE [facility], [address] [place], [place] [address] Jadyn Colvin PA-C Three [facility] [address] [place], [place] [address] Afua Nguyen MD [facility]. [address] [place], [place] [phone] 01/03/2025 3:00 PM CDT Appointment [facility] Vascular Lab ONE [facility] [place] [address] Keshia White MD Three [facility]. [address] [place], [place] [phone] 01/17/2025 2:15 PM CDT Office Visit [facility] THREE [facility], [address] [place], [place] [phone] Keshia White MD Three [facility]. [address] [place], [place] [address] documented as of this encounter Visit Diagnoses Not on filedocumented in this encounter Care Teams Director Global Market Research Relationship Specialty Start Date End Date Manish Sanchez MD [address] [place] [address] PCP - General FAMILY PRACTICE 01/09/18 09/27/20 Karina Mojica NP [address] [place] [address] [place] [address] PCP - General NURSE PRACTITIONER 09/28/20 Niko Albarran MD 3 [facility] [place] [address] [place] [address] [place] Chain Maker CARDIOVASCULAR DISEASE 05/11/19 04/02/24 Keshia White MD Three [facility]. [address] [place], [place] [address] [place] Chain Maker INTERVENTIONAL CARDIOLOGY 09/08/19 Landen Velasco MD 1 [place] [address] Referring Physician EMERGENCY MEDICINE 04/07/23 4 Tomi Bermeo MD [address] [place] [address] Medical Oncologist INTERNAL MEDICINE HEMATOLOGY & ONCOLOGY 04/03/24 Gonzalez Rangel MD [address] [place] [address] Consulting Physician PULMONARY DISEASE 04/03/24 documented as of this encounter
[2024-07-24 15:51] LABS: Folic Acid 11.2 ng/mL (2.76->20)
== END 2024-07-24 13:30 | disposition home or self-care (01) ==
PROVIDERS: PCP Family Medicine; Visit Provider Nurse Practitioner Adult Health
DX: M19.072 Primary osteoarthritis, left ankle and foot (principal); M85.89 Other specified disorders of bone density and structure, multiple sites; I11.0 Hypertensive heart disease with heart failure; I50.9 Heart failure, unspecified; I73.9 Peripheral vascular disease, unspecified; I48.91 Unspecified atrial fibrillation; I87.2 Venous insufficiency (chronic) (peripheral)
CPT/HCPCS: 36415; 73620; 82607; 82746; 83540; 83550; 85025

== ENCOUNTER 2024-10-11 14:15 | Outpatient (CLI) | payer MEDICARE, SELFPAY ==
--- NOTE | ~2024-10-11 | US_ITS ---
Limited Abdominal Sonogram: Real-time sonographic imaging of the right upper quadrant was performed. Clinical History: Alcoholic cirrhosis Findings: The liver appears mildly echogenic/heterogeneous, with no evidence of mass lesion or bile duct dilatation. Main portal vein demonstrates normal direction of flow. The gallbladder is well dist ended, and appears normal with no evidence of gallstone or wall thickening. The common bile duct latosha ures 3 mm. The visualized pancreas, aorta, and IVC are unremarkable. Impression: Mildly echogenic/heterogeneous liver parenchyma. Correlate for fatty infiltration or other chronic li lenora disease. Reviewed, dictated and finalized at location . Impression: Mildly echogenic/heterogeneous liver parenchyma. Correlate for fatty infiltrati on or other chronic liver disease.
--- OUTSIDE RECORDS SUMMARY | 2024-10-11 14:27 | XMS_ITS | Encounter Summary ---
Author Organization [facility] Address [facility] [place] [address] Care Team Providers Care Rn Referral Name Role Phone Manish Sanchez MD Primary Care Provider + [phone] Niko Albarran MD Unavailable [phone] Keshia White MD Unavailable [phone] Karina Mojica NP Primary Care Provider + [phone] Landen Velasco MD Unavailable [phone] Tomi Bermeo MD Unavailable Gonzalez Rangel MD Unavailable [phone] Encounter Details Date Type Department Care Team (Late st Contact Info) Description 05/09/2019 Hospital Follow-up Call [facility] [place] [address] Herlinda Moeller, Flight Operations Specialist Social History Tobacco Use Types Packs/Day Years [...] Assessment Author Status No 05/05/2019 11:05 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 [address] [place] [address] Jadyn Colvin PA-C Saha, Paban, MD [facility]. [facility] [address] [place] [address] 10/27/2024 1:00 PM CDT [facility] THREE [facility], [facility] [address] [place] [address] Keshia White MD Three [facility]. [facility] [address] [place] [address] 01/03/2025 3:00 PM CDT Appointment [facility] [place] [address] Keshia White MD Three [facility]. [address] [place] [address] 03/12/2025 2:20 PM CDT Office Visit [facility] Mult[facility]ialty Care - [facility] [address] [facility] [place] [address] Gonzalez Rangel MD 3[facility] [address] [place] [address] documented as of this encounter Visit Diagnoses Not on filedocumented in this encounter Care Teams Rn Referral Relationship Specialty Start Date End Date Manish Sanchez MD [address] [place] [address] PCP - General FAMILY PRACTICE 01/09/18 09/27/20 Karina Mojica NP [address] [place] [address] [place] [address] PCP - General NURSE PRACTITIONER 09/28/20 Niko Albarran MD 3 [facility] [address] [place] [phone] [employer] Cosmetology Instructor CARDIOVASCULAR DISEASE 05/11/19 04/02/24 Keshia White MD Three [facility]. [address] [place] [address] [employer] Cosmetology Instructor INTERVENTIONAL CARDIOLOGY 09/08/19 Landen Velasco MD 1 [place] [address] Referring Physician EMERGENCY MEDICINE 04/07/23 4 Tomi Bermeo MD [address] [place] [phone] Medical Oncologist INTERNAL MEDICINE HEMATOLOGY & ONCOLOGY 04/03/24 Gonzalez Rangel MD [address] [place] [address] Consulting Physician PULMONARY DISEASE 04/03/24 documented as of this encounter
--- OUTSIDE RECORDS SUMMARY | 2024-10-11 14:27 | XMS_ITS ---
Author Organization [facility] Address [address] [place], [place] [phone] Care Team Providers Care Plant Taxonomist Name Role Phone LORA MUSE Unavailable [phone] Ezequiel Anne Unavailable Unavailable REASON FOR VISIT *General care Encounters Encounter Location Date Provider Diagnosis [facility] [place] [address] [facility] [address] [place], [place] [phone] 04/12/2024 LORA MUSE Plan Of Treatment Next Appt Details Provider Name:LORA MUSE, 04:00:00 PM, [address], [address], [place], [place], [phone], Progress Notes * WILLIAM DAVISOB:1955 (69 yo M)Acc No.[id number]:04/12/2024 Patient: MANI CANNON Provider: Jaye Muse DPM :1955 A ge:69 Y S ex:Male Date:04/12/2024 Address:[address] [facility] Subjective: * Chief Complaints: * 1 . *General care. * Medical History: Objective: * Vitals: Assessment: Plan: * Treatment: * Billing Information: * Visit Code: * Procedure Codes: * Electronic signature of LORA MUSE DPM on 10/11/2024 at 02:25 PM CDT Sign off status: Pending * Provider: Jaye Muse DPM Date: 1 06/12/2023 Generated for Des rene/Rosa/Cathy on: 0 10/11/2024 02:25 PM CDT
--- OUTSIDE RECORDS SUMMARY | 2024-10-11 14:27 | XMS_ITS | Encounter Summary ---
Author Organization [facility] Address [facility] [place] [address] Care Team Providers Care Gas Main And Line Fitter Name Role Phone Niko Albarran MD Unavailable [phone] Keshia White MD Unavailable [phone] Karina Mojica ULTRASOUND SONOGRAPHER Primary Care Provider [phone] Landen Velasco MD Unavailable [phone] Tomi Bermeo MD Unavailable Gonzalez Rangel MD Unavailable [phone] Encounter Details Date Type Department Care Team (Late st Contact Info) Description 06/02/2023 [facility] [id number] Viji Hernández MA Social History Tobacco Use Types Packs/Day Years Used Date Smoking Tobacco: Every Day Cigarettes Passive Smoke Exposure: Current Smokeless Tobacco: Never Comments:Provider to delinquency counselor Alcohol Use Standard Drinks/Week Comments Yes [...] place to sleep or slept in a mcfp (including now)? No 03/23/2023 Sex and Gender [...] 9:36 AM Stephania Talamantes RN Active * Are you blind or do you have serious difficulty seeing, even when wearing glasses? Answer Date of Assessment Author Status No 03/22/2023 9:36 AM Stephania Talamantes RN Active * Do you have serious difficulty walking or climbing stairs? Answer Date of Assessment Author Status Yes 03/22/2023 9:36 AM Stephania Talamantes RN Active * Do you have difficulty [...] Description 10/16/2024 12:30 PM CDT [facility] [address] [place], [place] [address] Jadyn Colvin PA-C Saha, Paban, MD [facility]. [address] [place], [place] [address] 10/27/2024 1:00 PM CDT [facility] [address] [place], [place] [address] Keshia White MD [facility]. [address] [place] [address] 01/03/2025 3:00 PM CDT Appointment [facility] Vascular Lab [address] [facility] [address] Keshia White MD [facility] [address] [place] [address] 03/12/2025 2:20 PM CDT Office Visit [facility]ialty Care - [facility] [address] [facility] [place] [address] Gonzalez Rangel MD [facility] [facility] [address] [place] [address] documented as of this encounter Goals Goal Patient Goal Type Associated Problems Recent Progress Patient-Stated? Author Family - family caregiver with be involved in care transitions and discharge planning Lifestyle No Sheryl Albarran, RN documented as of this encounter Procedures Procedure Name Priority Date/Time Associated Diagnosis Comments COMPREHENSIVE METABOLIC PANEL Routine 05/25/2023 CBC, MANUAL DIFF Routine 05/25/2023 THYROXINE, TOTAL Routine 05/25/2023 THYROID STIM HORMONE TSH Routine 05/25/2023 documented in this encounter Results * THYROXINE, TOTAL (05/25/2023) TOTAL T4 11.20 05/25/2023 us Default History Genericprovider LABORATORY Final Result * COMPREHENSIVE METABOLIC PANEL (05/25/2023) SODIUM S/P/B 134 GLUCOSE 81 mg/dL AST 18 BUN 22 CREATININE S/P/B 0.80 0.7 - 1.3 CALCIUM S/P/B 8.6 POTASSIUM S/P/B 4.2 CHLORIDE S/P/B 100 ALT 17 GFR ESTIMATE >60 us Default History Genericprovider LABORATORY Edited Result - Final * CBC, MANUAL DIFF (05/25/2023) WBC 8.3 HGB 12.6 HCT 39.3 PLT 461 us Default History Genericprovider LABORATORY Edited Result - Final * THYROID STIM HORMONE, TSH (05/25/2023) TSH 9.490 us Default History Genericprovider LABORATORY Edited Result - Final documented in this encounter Visit Diagnoses Not on filedocumented in this encounter Care Teams Gas Main And Line Fitter Relationship Specialty Start Date End Date Karina [place] [address] [place] [address] PCP - General NURSE PRACTITIONER 09/28/20 Niko Albarran MD 3 [facility] [address] [place] [phone] [place] [employer] CARDIOVASCULAR DISEASE 05/11/19 04/02/24 Keshia White MD Three [facility]. [address] [facility] [place] [address] [place] INTERVENTIONAL CARDIOLOGY 09/08/19 Landen Velasco MD 1 [place] [address] Referring Physician EMERGENCY MEDICINE 04/07/23 4 Tomi Bermeo MD [address] [place] [address] Medical Oncologist INTERNAL MEDICINE HEMATOLOGY & ONCOLOGY 04/03/24 Gonzalez Rangel MD [address] [place] [address] Consulting Physician PULMONARY DISEASE 04/03/24 documented as of this encounter
--- OUTSIDE RECORDS SUMMARY | 2024-10-11 14:27 | XMS_ITS | Patient Health Record ---
Author Organization [facility] Address [address] [place], [place] [address] Care Team Providers Care Teletype Or Varitype Keyboard Operator Name Role Phone LORA MUSE Unavailable [phone] Ezequiel Anne Unavailable Unavailable Allergies No Known Allergies Reason For Referral No Information Social History Tobacco Use: Social History Observation Description Date Details (start date - stop date) Unknown if ever smoked NA - NA Tobacco Control (Standard) Question Answer Notes Tobacco use: Unknown if ever smoked Vital Signs Height-cm 182.88 cm 08/22/2024 Weight-kg 90.72 kg 08/22/2024 Height 72 in 08/22/2024 Weight 200 lbs 08/22/2024 BMI 27.12 kg/m2 08/22/2024 Encounters Encounter Location Date Provider Diagnosis [facility] [address] [place], [place] [id number] 08/22/2024 LORA SNYULIYAK Posterior tibial tendinitis, right leg M76.821 ; Tinea unguium B35.1 ; Pain in right toe(s) M79.674 ; Pain in left toe(s) M79.675 and Atherosclerosis of eastern shoshone arteries of extremities with intermittent claudication, bilateral legs I70.213 [facility] [address] [place], [place] [id number] 12/01/2023 LORA SNOOK Tinea unguium B35.1 ; Acquired keratosis [keratoderma] palmaris et plantaris L85.1 ; Atherosclerosis of eastern shoshone arteries of extremities with intermittent claudication, bilateral legs I70.213 ; Pain in right foot M79.671 and Pain in left foot M79.672 [facility] [place] [address] [facility] [address] [place], [place] [id number] 02/02/2024 LORA SNOOK Tinea unguium B35.1 ; Acquired keratosis [keratoderma] palmaris et plantaris L85.1 ; Atherosclerosis of eastern shoshone arteries of extremities with intermittent claudication, bilateral legs I70.213 ; Pain in right foot M79.671 and Pain in left foot M79.672 [facility] [address] [place], [place] [id number] 06/13/2024 LORA SNOOK Tinea unguium B35.1 ; Acquired keratosis [keratoderma] palmaris et plantaris L85.1 ; Atherosclerosis of eastern shoshone arteries of extremities with intermittent claudication, bilateral legs I70.213 ; Pain in right foot M79.671 and Pain in left foot M79.672 Assessments Encounter Date Diagnosis (ICD Code) Assessment Notes Treatment Notes Treatment Clinical Notes Section Notes 12/01/2023 Tinea unguium (ICD-10 - B35.1) Nails [...] cut and pared utilizing a #15 blade 08/22/2024 Tinea unguium (ICD-10 - B35.1) FUNGAL TOENAILS: Discussed various treatment options for fungal toenails including debridement, topical antifungals, oral antifungals, toenail avulsion, or toenail matrixectomy. NAIL DEBRIDEMENT: Nails 1-5 Bilateral were debrided extensively with nail nippers and emery board, reducing length and girth to pink healthy tissue with any subungual debris and necrotic tissue removed 08/22/2024 Posterior tibial tendinitis, right leg (ICD-10 - M76.821) Posterior Tibialis Tendon Dysfunction: I discussed anti-inflammatory treatment options and various means of immobilization with the patient. I educated the patient on icing and stretching, supportive shoegear, and the use of orthotic devices and bracing. Strapping and Padding: A removable longitudinal metatarsal strapping was made. The patient was educated on its use and effect. This was done to provide support to the arch. Voltaren Gel: Recommend that the patient obtain over the counter topical Voltaren Gel 1%. I educated the patient on its use. 08/22/2024 Pain in right toe(s) (ICD-10 - M79.674) 06/13/2024 Atherosclerosis of eastern shoshone arteries of extremities with intermittent claudication, bilateral legs (ICD-10 - I70.213) 02/02/2024 Atherosclerosis of eastern shoshone arteries of extremities with intermittent claudication, bilateral legs (ICD-10 - I70.213) 12/01/2023 Atherosclerosis of eastern shoshone arteries of extremities with intermittent claudication, bilateral legs (ICD-10 - I70.213) 12/01/2023 Pain in right foot (ICD-10 - M79.671) 02/02/2024 Pain in right foot (ICD-10 - M79.671) 06/13/2024 Pain in right foot (ICD-10 - M79.671) 08/22/2024 Pain in left toe(s) (ICD-10 - M79.675) 08/22/2024 Atherosclerosis of eastern shoshone arteries of extremities with intermittent claudication, bilateral legs (ICD-10 - I70.213) 06/13/2024 Pain in left foot (ICD-10 - M79.672) 02/02/2024 Pain in left foot (ICD-10 - M79.672) 12/01/2023 Pain in left foot (ICD-10 - M79.672) Plan Of Treatment Next Appt Details Provider Name:LORA MUSE, 04:00:00 PM, [address] [facility], [address], [place], [place], [id number], Insurance Providers Payer Name Payer Address Payer Phone Subscriber Number Group Number Insured Name Patient Relationship to Insured Coverage Start Date Coverage End Date [employer] [address] [place] [phone] [id number] MANI DAVIS Self - patient is the insured Medical (General) History Medical History History ICD Code No Known Allergies
--- OUTSIDE RECORDS SUMMARY | 2024-10-11 14:27 | XMS_ITS | Encounter Summary ---
Author Organization [facility] Address [address] [place] [address] Care Team Providers Care Credit Operations Specialist Name Role Phone Niko Albarran MD Unavailable [phone] Keshia White MD Unavailable [phone] Karina Mojica MUFFLE WORKER Primary Care Provider [phone] Landen Velasco MD Unavailable [phone] Tomi Bermeo MD Unavailable Gonzalez Rangel MD Unavailable [phone] Encounter Details Date Type Department Care Team (Late st Contact Info) Description 10/24/2020 [employer] Message [facility] Patient Accounts [address] [place] [address] [facility] Notice of account balance Social History [...] Assessment Author Status No 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 Answer Date of Assessment Author Status No 05/05/2019 11:05 PM REPAIRER MAINTENANCE BUILDING Acti ve * Do you have serious difficulty walking or climbing stairs? Answer Date of Assessment Author Status No 05/05/2019 11:05 PM Shaye Wylie RN Active * Do you have difficulty dressing or bathing? Answer Date of Assessment Author Status No 05/05/2019 11:05 PM Shaye Wyile RN Active * Because of a physical, [...] Description 10/16/2024 12:30 PM CDT Office Visit [facility], [facility] [address] [place], [place] [id number] Jadyn Colvin PA-C Saha, Paban, MD [facility]. [address] [place], [place] [address] 10/27/2024 1:00 PM CDT Office Visit [facility], [address] [place], [place] [address] Keshia White MD [facility]. [address] [place], [place] [address] 01/03/2025 3:00 PM CDT Appointment [facility] V[facility] Lab [address] [facility] [address] Keshia White MD Three [facility]. [address] [place] [address] 03/12/2025 2:20 PM CDT Office Visit [facility] Medical Group Multispecialty Care - [facility] [address] [facility] [place] [phone] Gonzalez Rangel MD 3rd [facility] [address] [place] [address] documented as of this encounter Visit Diagnoses Not on filedocumented in this encounter Care Teams Credit Operations Specialist Relationship Specialty Start Date End Date Karina Mojica NP [address] [place] [address] PCP - General NURSE PRACTITIONER 09/28/20 Niko Albarran MD 3 [facility] [address] [place] [phone] [place] Teletypewriter Operator CARDIOVASCULAR DISEASE 05/11/19 04/02/24 Keshia White MD Three [facility]. [address] [place] [address] [place] Teletypewriter Operator INTERVENTIONAL CARDIOLOGY 09/08/19 Landen Velasco MD [address] [place] [address] Referring Physician EMERGENCY MEDICINE 04/07/23 4 Tomi Bermeo MD [address] [place] [address] Medical Oncologist INTERNAL MEDICINE HEMATOLOGY & ONCOLOGY 04/03/24 Gonzalez Rangel MD [address] [place] [address] Consulting Physician PULMONARY DISEASE 04/03/24 documented as of this encounter
--- OUTSIDE RECORDS SUMMARY | 2024-10-11 14:27 | XMS_ITS | Encounter Summary ---
Author Organization [facility] Address [facility] [place] [address] Care Team Providers Care Cloth Baler Name Role Phone Manish Sanchez MD Primary Care Provider + [phone] Niko Albarran MD Unavailable [phone] Keshia White MD Unavailable [phone] Karina Mojica NP Primary Care Provider + [phone] Landen Velasco MD Unavailable [phone] Tomi Bermeo MD Unavailable Gonzalez Rangel MD Unavailable [phone] Encounter Details Date Type Department Care Team (Late st Contact Info) Description 05/08/2019 Hospital Follow-up Call [facility] [place] [address] Herlinda Moeller, Sole Seamer Social History Tobacco Use Types Packs/Day Years [...] Assessment Author Status No 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 [facility] [address] [place] [address] 10/27/2024 1:00 PM CDT [facility] THREE [facility], [facility] [address] [place] [address] Keshia White MD Three [facility]. [facility] [address] [place] [address] 01/03/2025 3:00 PM CDT Appointment [facility] [place] [address] Keshia White MD Three [facility]. [address] [place] [address] 03/12/2025 2:20 PM CDT Office Visit [facility] Medical Group Multispecialty Care - [facility] 3 [facility] [place] [phone] Gonzalez Rangel MD 3rd [facility] [address] [place] [address] documented as of this encounter Visit Diagnoses Not on filedocumented in this encounter Care Teams Cloth Baler Relationship Specialty Start Date End Date Manish Sanchez MD [address] [place] [address] PCP - General FAMILY PRACTICE 01/09/18 09/27/20 Karina Mojica NP [address] [place] [address] [place] [address] PCP - General NURSE PRACTITIONER 09/28/20 Niko Albarran MD 3 [facility] [address] [place] [phone] [place] St[employer]downs Toe Former CARDIOVASCULAR DISEASE 05/11/19 04/02/24 Keshia White MD Three [facility]. [address] [place] [address] [place] [employer] Former INTERVENTIONAL CARDIOLOGY 09/08/19 Landen Velasco MD 1 [place] [address] Referring Physician EMERGENCY MEDICINE 04/07/23 4 Tomi Bermeo MD [address] [place] [id number] Medical Oncologist INTERNAL MEDICINE HEMATOLOGY & ONCOLOGY 04/03/24 Gonzalez Rangel MD [address] [place] [address] Consulting Physician PULMONARY DISEASE 04/03/24 documented as of this encounter
--- OUTSIDE RECORDS SUMMARY | 2024-10-11 14:27 | XMS_ITS ---
Author Organization [facility] Care Team Providers Care Cut Lace Machine Operator Name Role Phone Jadyn Lyman Unavailable Unavailable Habib, Zurdo Unavailable Unavailable Ampadu, Eugene Unavailable Unavailable Ampadu, Julianna Unavailable Unavailable Wilmer Rodriguez, Ryan Unavailable Unavai Leatha Hung Unavailable Unavailable Fahim, Magid Unavailable Unavailable Heharika, Bridget L Unavailable Unavailable Rony, Bridget Unavailable Unavailable [place], Daniela A Unavailable Unavailable Redman, Geri A Unavailable Unavailable Allergies and adverse reactions No Known Allergies Care Team Name Role Address Phone Organization Dates Eugene Ampadu PCP [address] [place], [address], [place] (Office): : [facility] 03/27/2023 - 04/17/2023 Jadyn Lyman [address], [address], [place] (Office): [facility] 03/27/2023 - 04/17/2023 [place] , [address], [place]Office): : [facility] 03/27/2023 - 04/17/2023 Julianna Ampadu [address] [address], [facility] (Office): : [facility] [place] 03/27/2023 - 04/17/2023 Ryan Rodriguez [address] [place], [address], [facility] (Office): : [facility] 03/27/2023 - 04/17/2023 Leatha Clement [address] [facility] [address], [place], [address], [place] (Office): : [facility] 03/27/2023 - 04/17/2023 Peter Tran [address] [place] [address], [address], [place] (Office): [facility] 03/27/2023 - 04/17/2023 Bridget Sellers [address] [place], [address], [place] (Office): : [facility] 03/27/2023 - 04/17/2023 Bridget Uribe [address], [place], [address], [place] (Office): : [facility] 03/27/2023 - 04/17/2023 Daniela Delarosa [address], [place], [address], [place] (Office): [facility] 03/27/2023 - 04/17/2023 Geri Redman [address] [facility] [address], [place], [address], [place] (Office): : [facility] [place] 03/27/2023 - 04/17/2023 Immunizations Immunization Status Vaccine Details Vaccine Code CodeSystem Issac e Notes TB 1 Step Mantoux (PPD) completed tuberculin skin test; unspecified formulation 98 CVX created date: 04/06/2023 consent date: 04/06/2023 administered date: 03/27/2023 TB 2 Step Mantoux Skin Test completed tuberculin skin test; unspecified formulation Step 1 of Multi-step with next step required 98 CVX created date: 04/09/2023 consent date: 04/09/2023 administered date: 03/30/2023 Tdap completed Diphtheria and Tetanus Toxoids and Acellular Pertussis Adsorbed, Inactivated Poliovirus, Haemophilus b Conjugate (Meningococcal Protein Conjugate), and Hepatitis B (Recombinant) Vaccine. 146 CVX created date: 04/06/2023 administered date: 12/17/2022 COVID Dose 1 completed SARS-COV-2 (COVID-19) vaccine, mRNA, spike protein, LNP, preservative free, 10 mcg/0.2mL dose, odell-sucrose formulation 218 CVX created date: 04/06/2023 administered date: 07/18/2020 COVID Dose 2 completed SARS-COV-2 (COVID-19) vaccine, mRNA, spike protein, LNP, preservative free, 10 mcg/0.2mL dose, odell-sucrose formulation 218 CVX created date: 04/06/2023 administered date: 08/15/2020 Mental Status Section Date Assessment Total Score Description 04/17/2023 BIMS 15 cognitively int act CAM 0 No delirium ind icated PHQ-9 14 moderate depres juno 04/02/2023 BIMS 15 cognitively int act CAM 0 No delirium ind icated PHQ-9 14 moderate depres juno Problems Problem # Description Date of onset Resolved Date Code CodeSystem Concern Status 1 MAJOR DEPRESSIVE DISORDER, RECURRENT, UNSPECIFIED [address] active 2 UNSPECIFIED SEVERE PROTEIN-CALORIE MALNUTRITION [address] active 3 ACUTE DIASTOLIC (CONGESTIVE) HEART FAILURE [address] active 4 ALCOHOL DEPENDENCE, UNCOMPLICATED [address] active 5 ANEURYSM OF THE ASCENDING AORTA, WITHOUT RUPTURE [address] active [address] active 7 CHRONIC OBSTRUCTIVE PULMONARY DISEASE, UNSPECIFIED [address] active 8 COGNITIVE COMMUNICATION DEFICIT [address] active 9 DIFFICULTY IN WALKIN G, NOT ELSEWHERE CLASSIFIED [address] active 10 DISPLACED INTERTROCHANTERIC FRACTURE OF LEFT FEMUR, SEQUELA [address] active 11 ESSENTIAL (PRIMARY) HYPERTENSION [address] active 12 HEART FAILURE, UNSPECIFIED [address] active 13 HYPERLIPIDEMIA, UNSPECIFIED [address] active 14 NICOTINE DEPENDENCE, CIGARETTES, UNCOMPLICATED [address] active 15 OTHER LACK OF COORDINATION [address] active 16 OTHER SPECIFIED ARTHRITIS, UNSPECIFIED SITE [address] active 17 PAIN IN LEFT HIP [address] active 18 PAIN IN LEFT LOWER LEG [address] active 19 PANLOBULAR EMPHYSEMA [address] active 20 PERIPHERAL VASCULAR DISEASE, UNSPECIFIED [address] active 21 SPONTANEOUS BACTERIA L PERITONITIS [address] active 22 TOBACCO USE 3 Z72.0 ICD-10-CM active 23 UNSPECIFIED ATRIAL FIBRILLATION [address] active 24 UNSPECIFIED CIRRHOSI S OF LIVER [address] active 25 UNSPECIFIED LACK OF COORDINATION [address] active 26 WEAK[address] active Reason for Referral No Reasons for Referral Entered Social History Social History Observation Description Start Date End Date Code Code System Current Smoking Status Tobacco smoking consumption unknown 212988140 SNOMED CT Sex Assigned At Male 1955 70992-2 [facility] Gender Identity Male 27771587374954 [address] Vital Signs Code Code System Vitals Name Values and Units Timing Information 8462-4 [facility] Blood Pressure-Diastolic Value=60 Un its=mmHg 04/17/2023 8480-6 [facility] Blood Pressure-Systolic Value=92 Uni ts=mmHg 04/17/2023 44352-5 [facility] Pain Level Value=0.0 04/17/2023 8310-5 [facility] Body Temperature Value=97.6 Units= F 04/17/2023 18025-2 [facility] O2 % BldC Oximetry Value=97.0 Units= % 04/17/2023 23754-7 [facility] Weight Xinfu=950.0 Units=Lbs 01/2023 9279-1 [facility] Respiratory Rate Value=18.0 Units=/m in 03/29/2023 8867-4 [facility] Heart rate Value=74.0 Units=/min 8302-2 [facility] Height Value=72.0 Units=Inches 03/26/2023
--- OUTSIDE RECORDS SUMMARY | 2024-10-11 14:27 | XMS_ITS | Encounter Summary ---
Author Organization [facility] Address formerly [facility] [place] [address] Care Team Providers Care Tooth Cutter Pinion Name Role Phone Manish Sanchez MD Primary Care Provider + [phone] Niko Albarran MD Unavailable [phone] Keshia White MD Unavailable [phone] Karina Mojica NP Primary Care Provider + [phone] Landen Velasco MD Unavailable [phone] Tomi Bermeo MD Unavailable Gonzalez Rangel MD Unavailable [phone] Encounter Details Date Type Department Care Team (Late st Contact Info) Description 06/24/2020 MyChart Message [facility] THREE [facility], [address] [place] [address] Niko Albarran MD 3 [facility] [address] [place] [address] RE: Question Social History Tobacco [...] Assessment Author Status No 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 [address] [place] [address] 10/27/2024 1:00 PM CDT Office Visit [facility] [facility], [address] [place] [address] Keshia White MD Three [facility] [address] [place] [address] 01/03/2025 3:00 PM CDT Appointment [facility] Vascular Lab ONE [facility] [place] [address] Keshia White MD Three [facility]. [address] [place] [address] 03/12/2025 2:20 PM CDT Office Visit [facility] Medical Group Multispecialty Care - [facility] [address] [facility] [place] [phone] Gonzalez Rangel MD 3rd [facility] [address] [place] [address] documented as of this encounter Visit Diagnoses Not on filedocumented in this encounter Care Teams Tooth Cutter Pinion Relationship Specialty Start Date End Date Manish Sanchez MD [address] [place] [address] PCP - General FAMILY PRACTICE 01/09/18 09/27/20 Karina Mojica NP [address] [place] [address] PCP - General NURSE PRACTITIONER 09/28/20 Niko Albarran MD 3 [facility] [address] [place] [address] [place] [employer] Liv[employer] Farmer CARDIOVASCULAR DISEASE 05/11/19 04/02/24 Keshia White MD Three [facility]. [facility] [address] [place] [address] [place] [employer] Liv[employer] Farmer INTERVENTIONAL CARDIOLOGY 09/08/19 Landen Velasco MD [address] [place] [address] Referring Physician EMERGENCY MEDICINE 04/07/23 4 Tomi Bermeo MD [address] [place] [address] Medical Oncologist INTERNAL MEDICINE HEMATOLOGY & ONCOLOGY 04/03/24 Gonzalez Rangel MD [address] [place] [address] [address] [place] [address] Consulting Physician PULMONARY DISEASE 04/03/24 documented as of this encounter
--- OUTSIDE RECORDS SUMMARY | 2024-10-11 14:27 | XMS_ITS ---
Author Organization [facility] Address [address] [place], [place] [id number] Care Team Providers Care Panel Machine Tender Name Role Phone LORA MUSE Unavailable [phone] Ezequiel Anne Unavailable Unavailable Allergies No Known Allergies REASON FOR VISIT Patient presents for at-risk foot care . The patient has painful toenails and calluses that are causing difficulty with ambulation and shoegear. The onset is gradual., The patient wears Cloudwalker inserts for calluses and arch pain. He is having some pain along his left instep. It does not hurt all the time, but when he walks he can feel tightness and pulling Vital Signs Height 72 in 08/22/2024 Weight 200 lbs 08/22/2024 BMI 27.12 kg/m2 08/22/2024 Height-cm 182.88 cm 08/22/2024 Weight-kg 90.72 kg 08/22/2024 Encounters Encounter Location Date Provider Diagnosis [facility] [place] [address] [facility] [address] [place], [place] [id number] 08/22/2024 LORA MUSE Posterior tibial tendinitis, right leg M76.821 ; Tinea unguium B35.1 ; Pain in right toe(s) M79.674 ; Pain in left toe(s) M79.675 and Atherosclerosis of [place] arteries of extremities with intermittent claudication, bilateral legs I70.213 Assessments Encounter Date Diagnosis (ICD Code) Assessment Notes Treatment Notes Treatment Clinical Notes Section Notes 08/22/2024 Posterior tibial tendinitis, right leg (ICD-10 [...] educated the patient on its use. 08/22/2024 Tinea unguium (ICD-10 - B35.1) FUNGAL TOENAILS: Discussed various treatment options for fungal toenails including debridement, topical antifungals, oral antifungals, toenail avulsion, or toenail matrixectomy. NAIL DEBRIDEMENT: Nails 1-5 Bilateral were debrided extensively with nail nippers and emery board, reducing length and girth to pink healthy tissue with any subungual debris and necrotic tissue removed 08/22/2024 Pain in right toe(s) (ICD-10 - M79.674) 08/22/2024 Pain in left toe(s) (ICD-10 - M79.675) 08/22/2024 Atherosclerosis of [place] arteries of extremities with intermittent claudication, bilateral legs (ICD-10 - I70.213) Plan Of Treatment Treatment Notes Assessment Notes Posterior tibial tendinitis, right leg Posterior Tibialis Tendon Dysfunction: I discussed anti-inflammatory [...] I educated the patient on its use. Tinea unguium FUNGAL TOENAILS: Discussed various treatment options for fungal toenails including debridement, topical antifungals, oral antifungals, toenail avulsion, or toenail matrixectomy. NAIL DEBRIDEMENT: Nails 1-5 Bilateral were debrided extensively with nail nippers and emery board, reducing length and girth to pink healthy tissue with any subungual debris and necrotic tissue removed Next Appt Details Follow Up: 10-12 Weeks, Reas on: At Risk Foot care, sooner if problems arise Provider Name:LORA MUSE, 04:00:00 PM, [address] [facility], [facility] [address], [place], [id number], Progress Notes * WILLIAM DAVISOB:1955 (69 yo M)Acc No.[id number]:08/22/2024 Patient: MANI CANNON Provider: Jaye Muse DPM :1955 A ge:69 Y S ex:Male Date:08/22/2024 Address:[facility] [address] [facility] Subjective: * Chief Complaints: * 1 . Patient presents for at-risk foot care . The patient has painful toenails and calluses that are causing difficulty with ambulation and shoegear. The onset is gradual.. 2. The patient wears Cloudwalker inserts for calluses and arch pain. He is having some pain along his left instep. It does not hurt all the time, but when he walks he can feel tightness and pulling. * HPI: H PI: General care P dk presents to the office for at risk foot care. Patient states that their nails are thickened, elongated and painful. Patient states that it is aggravated by shoe gear. Onset is gradual. Patient denies being diabetic., Patient is taking prescription blood thinners, along with a daily aspirin. , Date last seen by Dr. Thorpe was July 2024., Initials LB. N ew Complaint E stablished patient presents with a new complaint., Patient complains of an issue to left foot pain. PAtient states for a few months now the top of his left foot by his ankle has been hurting. Patient is seeing an orthopedic doctor for this soon. Patient also has a dark spot on the #5 digit that he has been monitoring. Patient states this has been present for 3 weeks now and there has not been a change with this. Patient states the spot does not bother him. TYLER LB. sample. * ROS: G eneral / Constitutional: Patient denies c hills, fatigue, fever. M usculoskeletal: Patient denies b roken foot bone, weakness. S kin: Patient denies u lcerations, warts. P atient complains of f ungal nails, discoloration, dry skin, calluses and corns. N eurologic: Patient denies b alance difficulty, confusion, difficulty speaking, dizziness. * Medical History: N o Known Allergies. * Family History: N o Family History documented.. * Medications: N one * Allergies: N .K.D.A. Objective: * Vitals: S hoe Size: 12, Wt:200lbs, Wt-k.72 kg, Ht: 72 in, Ht-cm: 182.88 cm, BMI:27.12Index, Body Surface Area: 2.14. * Examination: P hysical Examination: General appearance: [...] subungual debris. They are painful to palpation. V ascular: Dorsalis pedis pulse: 1 /4 b ilateral. Posterior tibial pulse: 0 /4 bilateral. Capillary refill: g reater than 3 seconds. Edema: N o edema bilateral. N eurologic: Gross sensation G rossly intact to light touch. There is negative Tinel's sign. M usculoskeletal: Muscle Strength M uscle strength is 5/5 in regards to dorsiflexion, plantarflexion, inversion, and eversion in bilateral lower extremities. Pain on palpation n avicular tuberosity and distal portion of the tibialis posterior tendon of the left foot. Assessment: * Assessment: 1. P osterior tibial tendinitis, right leg - M76.821 (Primary) 2 . T inea unguium - B35.1 3 . P ain in right toe(s) - M79.674 4 . P ain in left toe(s) - M79.675 5 . A therosclerosis of [place] arteries of extremities with intermittent claudication, bilateral legs - I70.213 Plan: * Treatment: 2. T inea unguium Notes: FUNGAL TOENAILS: Discussed various treatment options for fungal toenails including debridement, topical antifungals, oral antifungals, toenail avulsion, or toenail matrixectomy. NAIL DEBRIDEMENT: Nails 1-5 Bilateral were debrided extensively with nail nippers and emery board, reducing length and girth to pink healthy tissue with any subungual debris and necrotic tissue removed * Immunizations: Immunization record has been reviewed and updated. * Follow Up: 1 0-12 Weeks (Reason: At Risk Foot care, sooner if problems arise) * Billing Information: * Visit Code: 90324 Office Visit, Est Pt., Level 3. * Procedure Codes: * Electronic signature of LORA MUSE DPM on 10/11/2024 at 02:26 PM CDT Sign off status: Pending * Provider: Jaye Muse DPM Date: 0 08/22/2024 Generated for Des rene/Rosa/Cathy on: 0 10/11/2024 02:26 PM CDT History and Physical Notes * HPI (History of Present Illness) Category Sub-Category Detail Notes Category Not es HPI General care Patient presents to the office for at risk foot care. Patient states that their nails are thickened, elongated and painful. Patient states that it is aggravated by shoe gear. Onset is gradual. Patient denies being diabetic., Patient is taking prescription blood thinners, along with a daily aspirin. , Date last seen by Dr. Thorpe was July 2024., Initials LB sample New Complaint Established patient presents with a new complaint., Patient complains of an issue to left foot pain. PAtient states for a few months now the top of his left foot by his ankle has been hurting. Patient is seeing an orthopedic doctor for this soon. Patient also has a dark spot on the #5 digit that he has been monitoring. Patient states this has been present for 3 weeks now and there has not been a change with this. Patient states the spot does not bother him. MA LB Examination Category Sub-Category Detail Notes Category Not [...] inversion, and eversion in bilateral lower extremities Pain on palpation navicular tuberosity and distal portion of the tibialis posterior tendon of the left foot
--- OUTSIDE RECORDS SUMMARY | 2024-10-11 14:27 | XMS_ITS | Encounter Summary ---
Author Organization [facility] Address [facility] [place] [address] Care Team Providers Care Reed Repairer Name Role Phone Keshia White MD Unavailable [phone] Karina Mojica NP Primary Care Provider [phone] Tmoi Bermeo MD Unavailable Gonzalez Rangel MD Unavailable [phone] Encounter Details Date Type Department Care Team (Late st Contact Info) Description 04/03/2024 [email or web address] Message Enc [facility] [place] [address] [facility] Provider Surgery Pre-Op Instructions Social History Tobacco Use Types Packs/Day Years Used Date Smoking Tobacco: Every Day Cigarettes 0.5 50.5 Started: 04/03/1974 Passive Smoke Exposure: Current Smokeless Tobacco: Never 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 No 03/23/2023 Sex and Gender [...] Description 10/16/2024 12:30 PM CDT [facility] [address] [place], [place] [address] Jadyn Colvin PA-C Saha, Paban, MD [facility]. [address] [place], [place] [address] 10/27/2024 1:00 PM CDT [facility] [address] [place], [place] [address] Keshia White MD [facility]. [address] [place] [address] 01/03/2025 3:00 PM CDT Appointment [facility] Vascular Lab [address] [facility] [place] [address] Keshia White MD Three [facility]. [address] [place] [address] 03/12/2025 2:20 PM CDT Office Visit [facility] Multispecialty Care - [facility] [address] [facility] [address] [place] [address] Gonzalez Rangel MD 3rd [facility] [address] [place] [address] documented as of this encounter Goals Goal Patient Goal Type Associated Problems Recent Progress Patient-Stated? Author Family - family caregiver with be involved in care transitions and discharge planning Lifestyle No Sheryl Albarran, RN documented as of this encounter Visit Diagnoses Not on filedocumented in this encounter Care Teams Reed Repairer Relationship Specialty Start Date End Date Karina Mojica NP [address] [place] [address] [place] [address] PCP - General NURSE PRACTITIONER 09/28/20 Keshia White MD Three [facility]. [facility] [address] [place] [address] Dola Risk And Insurance Manager INTERVENTIONAL CARDIOLOGY 09/08/19 Tomi Bermeo MD [address] [place] [id number] Medical Oncologist INTERNAL MEDICINE HEMATOLOGY & ONCOLOGY 04/03/24 Gonzalez Rangel MD [address] [place] [id number] Consulting Physician PULMONARY DISEASE 04/03/24 documented as of this encounter
--- OUTSIDE RECORDS SUMMARY | 2024-10-11 14:27 | XMS_ITS | Clinical Summary ---
Author Organization [facility] Address [address] [place] [address] Phone Care Team Providers Care Director Counseling Bureau Name Role Phone Unavailable Primary Care Provider [...] 1 Tablet by mouth daily. 30 Tablet 1 Active naloxone (NARCAN) 4 mg/spray [place], Non-Aerosol EMERGENCY USE ONLY: Administer 1 spray (4 mg) in one nostril one time. May repeat in alternating nostrils every 2-3 min until responsive or EMS arrives. 2 Each 3 1 Active Active Problems Problem Noted Date Diagnosed [...] 10/27/2020 11:31 PM CDT Plan of Treatment Upcoming Encounters Date Type Department Care Team (Late st Contact Info) Description 11/16/2024 1:30 PM CDT Office Visit [facility] - [place] [address] [address] [place] [address] Jacobo Winkler MD [address] [facility] [address] [place] [address] Health Maintenance Due Date Last Done Comments PNEUMOCOCCAL VACCINE 50+ YEA RS (1 of 2 - PCV) [...] (2 - Td or Tdap) 10/27/2030 Insurance [facility] Advance Directives For more information, please contact: [phone] * Full Code (Latest Code Status on File) Date Activated Date Inactivated Comments 10/28/2020 2:21 AM 10/29/2020 2:33 PM
--- OUTSIDE RECORDS SUMMARY | 2024-10-11 14:28 | XMS_ITS | Clinical Summary ---
Author Organization [facility] Address [address] [place] [address] Phone Care Team Providers Care Pantograph Transferrer Name Role Phone Karina Mojica APRN, REVENUE CYCLE MANAGER Primary Care Provide r Tomi Bermeo MD Unavailable Allergies No known active allergies Medications thiamine (VITAMIN B1) 100 MG Tablet Take 100 mg by mouth daily. 3 Active sertraline (ZOLOFT) 50 MG Tablet Take 50 mg by mouth daily. 3 Active Entresto 49-51 MG Tablet 3 Active pantoprazole (PROTONIX) 40 MG Tablet Delayed Response 3 Active metoprolol Succinate (TOPROL-XL) 50 MG TABLET SR 24 HR TAKE 1.5 TABLETS BY MOUTH 2 TIMES A DAY. 3 Active dilTIAZem (CARDIZEM CD) 120 MG CAPSULE SR 24 HR Take 120 mg by mouth daily. 3 Active buPROPion (WELLBUTRIN) 150 MG XL tablet Take 150 mg by mouth 2 times daily. 3 Active atorvastatin (LIPITOR) 40 MG Tablet TAKE 1 TABLET (40 MG) BY MOUTH EVERY DAY 3 Active Breztri Aerosphere 160-9-4.8 MCG/ACT Aerosol INHALE 2 PUFFS BY MOUTH TWICE A DAY 3 Active budesonide-form oterol fumarate (SYMBICORT) 160-4.5 MCG/ACT Aerosol take 2 Puffs by inhalation. 9 Active amiodarone (CORDARONE) 200 MG Tablet Take 100 mg by mouth daily. Once daily 3 Active albuterol 108 (90 Base) MCG/ACT Aerosol Solution take 2 Puffs by inhalation. 9 Active tamsulosin (FLOMAX) 0.4 MG Capsule Take 1 Capsule by mouth daily. 3 Active furosemide (LASIX) 20 MG Tablet TAKE 1 TABLET (20 MG TOTAL) BY MOUTH DAILY. NEW DOSE 3 Active Linzess 145 MCG Capsule TAKE 1 CAPSULE (145 MCG) BY MOUTH EVERY DAY 3 Active midodrine (PROAMATINE) 10 MG Tablet Take 10 mg by mouth 3 times daily. 3 Active HYDROcodone-shahzad taminophen (NORCO) 7.5-325 MG Tablet 3 Active Xarelto 20 MG Tablet TAKE 1 TABLET BY MOUTH EVERY DAY WITH SUPPER 3 Active spironolactone (ALDACTONE) 100 MG Tablet Take 100 mg by mouth. 3 Active sulfamethoxazol e-trimethoprim DS (BACTRIM DS, SEPTRA DS) 800-160 MG Tablet Take 1 Tablet by mouth daily. 3 Active levothyroxine (SYNTHROID) 75 MCG Tablet TAKE 1 TABLET (75 MG) BY MOUTH EVERY DAY 4 Active mupirocin (BACTROBAN) 2 % Ointment APPLY TOPICALLY TWICE A DAY 4 Active rOPINIRole (REQUIP) 1 MG Tablet Take 1 mg by mouth. 4 Active baclofen (LIORESAL) 10 MG Tablet Take 10 mg by mouth. 4 Active Vitamin D3 1.25 MG (59078 UT) Capsule TAKE 1 CAPSULE BY MOUTH ONCE A WEEK 4 Active ferrous sulfate 325 (65 Fe) MG Tablet TAKE 1 TABLET BY MOUTH EVERY DAY 30 Tablet 1 5 Active Active Problems Problem Noted Date Diagnosed [...] Encounters Date Type Department Care Team Description 08/30/2024 Refill [facility] [address] [address] Tomi Bermeo MD Medication Refill from Last [...] Comments Blood Pressure 116/70 05/18/2024 1:50 PM AIR VALVE REPAIRER Pulse 79 05/18/2024 1:50 PM AIR VALVE REPAIRER Temperature 36.8 C (98.2 F) 05/18/2024 1:50 PM AIR VALVE REPAIRER Respiratory Rate 18 05/18/2024 1:50 PM AIR VALVE REPAIRER Oxygen Saturation 95% 05/18/2024 1:50 PM AIR VALVE REPAIRER Inhaled Oxygen Concentration - - Weight 79.9 kg (176 lb 3.2 oz) 05/18/2024 1:50 P M AIR VALVE REPAIRER Height 182.9 cm (6') 05/18/2024 1:50 PM AIR VALVE REPAIRER Body Mass Index 23.9 05/18/2024 1:50 PM AIR VALVE REPAIRER Plan of Treatment Upcoming Encounters Date Type Department Care Team (Late st Contact Info) Description 11/09/2024 1:00 PM CDT Lab [facility] [address] [id number] Lab, [facility] 11/16/2024 2:00 PM CDT Office Visit [facility] [address] [address] Tomi Bermeo MD [address] [place] [phone] Health Maintenance Due Date Last Done Comments Pneumococcal Immunization (50+ years) (1 of 2 - PCV) 1973 Colonoscopy 1999 Colorectal Cancer Screening 1999 Cologuard 02/28/2004 Immunochemical Fecal Occult Blood 02/28/2004 Zoster Immunization (1 of 2) 02/28/2004 Respiratory Syncytial Virus (RSV) Immunization (Adult) (1 - Risk 60-74 years 1-dose series) 2014 Hepatitis B Immunization (2 of 3 - 19+ 3-dose series) 01/14/2023 12/17/2022 SARS-COV-2 Immunization ( - season) 2024 08/15/2020, 08/15/2020, 07/18/2020, Additional history exists Influenza Immunization (Season Ended) 2025 07/29/2022 Td Immunization Every 10 Years (Adults With 1 Tdap) 12/17/2032 12/17/2022, 10/27/2020 DTaP/Tdap/Td Immunization Discontinued 2022, 12/17/2022, 10/27/2020 Hepatitis C Virus (HCV) Screening Completed 01/27/2023 AAA Screening Ultrasound Completed 07/01/2023 Human Papillomavirus (HPV) Immunization Aged Out No longer eligible based on patient's age to complete this topic Meningococcal Immunization (ACWY) Aged Out No longer eligible based on patient's age to complete this topic Rotavirus Immunization Aged Out No lo nger eligible based on patient's age to complete this topic Procedures Procedure Name Priority Date/Time Associated Diagnosis Comments CT ABDOMEN W/ CONTRAST Routine 07/01/2023 3:20 PM AIR VALVE REPAIRER Liver lesion Anemia, unspecified type from Last 3 Months or Most Recently Relevant to Health Maintenance Results * CT ABDOMEN W/ CONTRAST (07/01/2023 3:20 PM AIR VALVE REPAIRER) Anatomical Region Laterality Modality Abdomen N/A Computed Tomogra phy Narrative 07/01/2023 4:39 PM AIR VALVE REPAIRER EXAMINATION: CT ABDOMEN W/ CONTRAST 07/01/2023 INDICATIONS: [...] Signature: 07/01/2023 16:39:43 Procedure Note José Miguel Beverly MD - 07/01/2023 EXAMINATION: CT ABDOMEN W/ [...] Maintenance Insurance MEDICARE C AETNA Care Teams Pantograph Transferrer Relationship Specialty Start Date End Date Karina Mojica, MEAT SLICER, REVENUE CYCLE MANAGER [address] [place] [address] PCP - General Family Medicine 11/05/22 Tomi Bermeo MD [address] [place] [id number] Consulting Physician Oncology 02/16/23
--- OUTSIDE RECORDS SUMMARY | 2024-10-11 14:28 | XMS_ITS | Encounter Summary ---
Author Organization [facility] Address [address] [place] [address] Care Team Providers Care Bookstore Manager Name Role Phone Niko Albarran MD Unavailable [phone] Keshia White MD Unavailable [phone] Karina Mojica COMMISSARY CLERK Primary Care Provider [phone] Landen Velasco MD Unavailable [phone] Tomi Bermeo MD Unavailable Gonzalez Rangel MD Unavailable [phone] Encounter Details Date Type Department Care Team (Late st Contact Info) Description 11/25/2022 MyChart Message Enc [facility] [address] [place], [place] [address] [facility], [facility] Provider Air Quality Message Social History Tobacco Use Types Packs/Day Years Used Date Smoking Tobacco: Every Day Cigarettes Passive Smoke Exposure: Current Smokeless Tobacco: Never Comments:Provider to treatment counselor Alcohol Use Standard Drinks/Week Comments Yes [...] place to sleep or slept in a long term (including now)? No 07/26/2022 Sex and Gender [...] Assessment Author Status No 07/26/2022 12:32 AM PARTY COORDINATOR Acti ve * RETIRED Are you blind or do you have serious difficulty seeing, even when wearing glasses? Answer Date of Assessment Author Status No 07/26/2022 12:32 AM PARTY COORDINATOR Acti ve * Do you have serious [...] Description 10/16/2024 12:30 PM CDT Office Visit [facility], [facility] [address] [place] [address] Jadyn Colvin PA-C Saha, Paban, MD [facility]. [facility] [address] [place] [address] 10/27/2024 1:00 PM CDT [facility] [address] [place] [address] Keshia White MD Three [facility]. [address] [place] [address] 01/03/2025 3:00 PM CDT Appointment [facility] Vascular Lab [address] [facility] [place] [address] Keshia White MD Three [facility]. [address] [place] [address] 03/12/2025 2:20 PM CDT Office Visit [facility]ialty Care - [facility] [address] [facility] [place] [phone] Gonzalez Rangel MD [address] [facility] [address] [place] [address] documented as of this encounter Goals Goal Patient Goal Type Associated Problems Recent Progress Patient-Stated? Author Family - family caregiver with be involved in care transitions and discharge planning Lifestyle No Sheryl Albarran, RN documented as of this encounter Visit Diagnoses Not on filedocumented in this encounter Care Teams Bookstore Manager Relationship Specialty Start Date End Date Karina Moj[place] [address] [place] [address] PCP - General NURSE PRACTITIONER 09/28/20 Niko Albarran MD 3 [facility] [place] [address] [place] [phone] [facility] Specialist CARDIOVASCULAR DISEASE 05/11/19 04/02/24 Keshia White MD Three [facility]. [address] [place] [address] [facility] Specialist INTERVENTIONAL CARDIOLOGY 09/08/19 Landen Velasco MD [address] [facility] [place] [address] Referring Physician EMERGENCY MEDICINE 04/07/23 4 Tomi Bermeo MD [address] [place] [address] Medical Oncologist INTERNAL MEDICINE HEMATOLOGY & ONCOLOGY 04/03/24 Gonzalez Rangel MD [address] [facility] [address] [place] [address] Consulting Physician PULMONARY DISEASE 04/03/24 documented as of this encounter
--- OUTSIDE RECORDS SUMMARY | 2024-10-11 14:28 | XMS_ITS | Clinical Summary ---
Author Organization [facility] Address [address] [place] [address] Care Team Providers Care Manager Client Service Name Role Phone Keshia White MD Unavailable [phone] Karina Mojica NP Primary Care Provider [phone] Tomi Bermeo MD Unavailable Isamar Rangel MD Unavailable [phone] Allergies No known active allergies Medications atorvastatin [...] 108 (90 Base) MCG/ACT inhalerIndicati ons:Panlobular emphysema ([facility]/HCC HHS/HCC) INHALE 2 PUFFS INTO THE LUNGS EVERY 4 (FOUR) HOURS NEEDED FOR SHORTNESS OF BREATH 18 g 5 4 Active budesonide-glyc opyrrolate-form oterol (BREZTRI AEROSPHERE) 160-9-4.8 MCG/ACT inhalerIndicati ons:Panlobular emphysema ([facility]/HCC HHS/HCC) Inhale 2 puffs into the lungs [...] times daily. 60 tablet 3 5 Active cilostazol (PLETAL) 100 MG tablet Take 1/2 tablet (50 mg)twice a day x 7 days. Then take 1 tablet (100 mg) twice a day there after. 90 tablet 1 5 Active Active Problems Problem Noted Date Diagnosed Date Chronic diastolic (congestiv e) heart failure ([facility]) 05/16/2024 Atrial fibrillation ([facility]) 04/11/2024 Major depressive disorder, recurrent, unspecifie d 03/27/2023 Unspecified severe protein-calorie malnutrition ([facility]) 03/27/2023 Cardiomegaly 03/26/2023 Cognitive communication deficit 03/26/2023 Difficulty in walking, not elsewhere classified 03/26/2023 Other specified arthritis, unspecified site 03/01 Pain in left hip 03/26/2023 Spontaneous bacterial peritonitis ([facility]/H CC) 03/26/2023 Unspecified cirrhosis of liver ([facility]) 03/26/2023 Other lack of coordination 03/26/2023 Weakness 03/26/2023 Intertrochanteric fracture of left femur ([facility]/ C [facility]) 03/22/2023 Cigarette nicotine dependence without complicati on 11/25/2022 Panlobular emphysema ([facility]) Congestive heart failure ([facility]) 08/18 Acute exacerbation of CHF (c ongestive heart failure) ([facility]) 07/25/2022 Ascending aortic aneurysm 07/23/2022 Acute heart failure with pre served ejection fraction ([facility]) 07/22/2022 Alcoholism ([facility]) 07/22/2022 History of atrial fibrillation 06/22/2022 Dyslipidemia 10/28/2020 Pain in left lower leg 11/27/2019 PAD (peripheral artery disease) 08/04/2019 Tobacco abuse 08/04/2019 Hypertension 06/09/2019 COPD (chronic obstructive pu lmonary disease) ([facility]) 06/09/2019 Abnormal EKG 06/09/2019 A-fib ([facility]) 05/05/2019 Resolved Problems Problem Noted Date Diagnosed Date Resolved Date Acute exacerbation of conges tive heart failure ([facility]) 03/12/2023 03/16/2023 Encounters Date Type Department Care Team Description 09/18/2024 Telephone [facility], [address] [place] [address] Kimberly Coates PA-C Concerns 08/31/2024 1:00 PM CDT Office Visit [facility] Multispecialty [facility] - [facility] [address] [facility] [place] [address] Isamar Rangel MD Follow Up 08/31/2024 Travel 07/21/2024 1:00 PM BELLHOP SERVICE CAPTAIN Office Visit [facility], [address] [place] [address] Keshia White MD CHF; Atrial Fibrillation; Peripheral Vascular Disease (2 mo follow up) 07/21/2024 Travel from Last 3 Months Immunizations Immunization Administration Dates Next Due Fluzone 6 Months+ [...] to Q uit: Not Asked; Counseling Given: Yes Comments:Provider to vocational guidance counselor Alcohol Use Standard Drinks/Week Comments Not [...] place to sleep or slept in a halfway (including now)? No 03/23/2023 Sex and Gender [...] Sign Reading Time Taken Comments Blood Pressure 105/75 08/31/2024 1:00 PM CDT Pulse 77 08/31/2024 1:00 PM CDT Temperature 36.9 C (98.4 F) 06/15/2024 9:40 AM BELLHOP SERVICE CAPTAIN Respiratory Rate 16 08/31/2024 1:00 PM CDT Oxygen Saturation 98% 08/31/2024 1:00 PM CDT ra Inhaled Oxygen Concentration - - Weight 77.6 kg (171 lb) 08/31/2024 1:00 PM CDT Height 182.9 cm (6') 08/31/2024 1:00 PM CDT Body Mass Index 23.19 08/31/2024 1:00 PM CDT Plan of Treatment Upcoming Encounters Date Type Department Care Team (Late st Contact Info) Description 10/16/2024 12:30 PM CDT Office Visit [facility], [address] [address] Jadyn Colvin PA-C Saha, Paban, MD Three [facility]. [facility] [address] [place] [address] 10/27/2024 1:00 PM CDT Office Visit [facility], [facility] [address] [place], [place] [address] Keshia White MD Three [facility]. [facility] [address] [place] [address] 01/03/2025 3:[address] [facility] [place] [address] Keshia White MD [facility] [address] [place] [address] 03/12/2025 2:20 PM CDT Office Visit [facility] Multispecialty Care - [facility] [address] [facility] [place] [id number] Isamar Rangel MD [facility] [address] [place] [address] Health Maintenance Due Date Last Done Comments Colorectal Cancer Screening Colonoscopy (10 Years) 1955 Pneumococcal Vaccine: 50+ Years (1 of 2 - PCV) 1973 Zoster Vaccines (1 of 2) 02/28/2004 RSV Immunization or 60+ Years (1 - Risk 60-74 years 1-dose series) 2014 Annual Medicare Wellness Visit 2019 ASCVD LDL 01/12/2024 01/11/2023, 02/01/2023, 04/01/2021 COVID-19 Vaccine (3 - season) 2024 08/15/2020, 08/15/2020, 07/18/2020, Additional history exists PHQ-2 (Physician [place]) 05/31/2024 05/01/2024 DTaP, Tdap and Td Vaccines (3 - [...] discharge planning Lifestyle No Sheryl Albarran, RN Medical Devices Implanted Type Area Traction Power Engineer Device Identifier Shelf Expiration Date Model / Serial / Lot Ondina Closure Device- 024 Implanted:Qty: 1 on 04/11/2024 by Afua Nguyen MD Closure Device [employer] JOHN [id number] 12/09/2026 / / [id number] 11mm/125 Degree Ti Sadie Tfna Implanted:Qty: 1 on 03/23/2023 by Sina Conner MD at [facility] Hip Components Left: Hip [employer] JED [employer] JED 09/27/2032 04.037.1 12S / / [id number] Tfna Fenestrated Screw 100mm Implanted:Qty: 1 on 03/23/2023 by Sina Conner MD at [facility] Hip Components Left: Hip [employer] JED [employer] JED [id number] 08/28/2032 04.038.2 00S / / [id number] 5.0mm Locking Screw Implanted:Qty: 1 on 03/23/2023 by Sina Conner MD at [facility] Screw Left: Hip [employer] JED 06/30/2032 04.005.5 26S / / [id number] Procedures Procedure Name Priority Date/Time Associated Diagnosis Comments CT CHEST WO CON Routine 06/01/2024 3:07 PM BELLHOP SERVICE CAPTAIN Multiple nodules of lung HEPATITIS C ANTIBODY Routine 01/27/2023 10:10 PM CDT LIPID PANEL Routine 01/11/2023 4:11 PM CDT Heart failure, unspecified from Last 3 Months or Most Recently Relevant to Health Maintenance Results * CT CHEST WO CON (06/01/2024 3:07 PM BELLHOP SERVICE CAPTAIN) Anatomical Region Laterality Modality Chest Computed Tomogra phy 06/05/2024 9:51 AM BELLHOP SERVICE CAPTAIN Impressions 06/05/2024 9:57 AM BELLHOP SERVICE CAPTAIN IMPRESSION: Saber-sheath morphology of the trachea, stable. [...] upper abdomen at the edge of the tuhwx-ez-pilr. Moderate diffuse degenerative disc disease and facet arthropathy. Referred By: ISAMAR RANGEL Interpreted By: Jhoan Pete MD, 06/05/2024 9:51 AM Narrative 06/05/2024 9:57 AM BELLHOP SERVICE CAPTAIN [address] [address] EXAMINATION: CT CHEST WITHOUT CONTRAST EXAM DATE/TIME: [...] upper abdomen at the edge of the ejuwk-ie-owym. On bone windows, no suspicious skeletal lesion or acute compression fracture deformity. Moderate diffuse degenerative disc disease and facet arthropathy. Procedure Note Jhoan Pete MD - 06/05/[address] [address] EXAMINATION: CT CHEST WITHOUT CONTRAST EXAM DATE/TIME: [...] the upper abdomen at the edge of hgoybodw-ot-nhfw. On bone windows, no suspicious skeletal lesion [...] the upper abdomen at the edge of ouofcyoz-vd-icvw. Moderate diffuse degenerative disc disease and facet arthropathy. Referred By: ISAMAR RANGEL Interpreted By: Jhoan Pete MD, 06/05/2024 9:51 AM Isamar Rangel MD CT Final Resul t * HEPATITIS C ANTIBODY (01/27/2023 10:10 PM CDT) HEPATITIS C AB NON-REACTI VE NON-REACTI VE 05/13/2023 7:10 AM BELLHOP SERVICE CAPTAIN [facility] 01/27/2023 10:1 0 PM CDT Landen Velasco MD LABORATORY Final Result [facility] [address] [place] [address], * LIPID PANEL (01/11/2023 4:11 PM CDT) CHOLESTEROL 78 <200 MG/DL 01/11/2023 5:20 PM CDT [facility] TRIGLYCERIDES 59 <150 MG/DL 01/11/2023 5:20 PM CDT [facility] HDL 51 >40.0 MG/DL 01/11/2023 5:20 PM CDT [facility] LDL (CALCULATED) 15 <100 MG/DL 01/12/20 5:20 PM CDT [facility] NON HDL CHOLESTEROL 27 <130 MG/DL 01/11 5:20 PM CDT [facility] CHOL/HDL RATIO 1.5 0.0 - 4.5 01/11/2023 5:20 PM CDT [facility] VLDL CALCULATION 12 5 - 55 MG/DL 01/11/2023 5:20 PM CDT [facility] LIPID INTERPRETATION 01/11/2023 5:20 PM CDT [facility] Comment: NIH CONCENSUS REPORT RECOMMENDATIONS: ADULT CHILD LOW RISK: CHOLESTEROL <200 <170 TRIGLYCERIDE <150 --- HDL >=60 --- LDL <100 <110 BORDERLINE: CHOLESTEROL 200-239 170-199 TRIGLYCERIDE 150-199 --- HDL 40-59 --- LDL 100-159 110-129 HIGH RISK: CHOLESTEROL >=240 >=200 TRIGLYCERIDE >=200 --- HDL <40 --- LDL >=160 >=130 01/11/2023 4:11 PM CDT Karina Mojica NP LABORATORY Final Result [facility] [address] [place] [address], from Last 3 Months or Most Recently Relevant to Health Maintenance Insurance [facility] Advance Directives Documents on File Type Date Recorded Patient Financial Management Analyst Expl anation Advance Directives and Living Will 07/30/2022 1:48 PM 07/26/2022 [facility] * Full Code (Latest Code Status on [...] 10:14 AM 07/30/2022 9:00 PM Care Teams Manager Client Service Relationship Specialty Start Date End Date Karina Mojica NP [address] [place] [address] PCP - General NURSE PRACTITIONER 09/28/20 Keshia White MD [facility] [address] [place] [address] [place] Social Staff Worker INTERVENTIONAL CARDIOLOGY 09/08/19 Tomi Bermeo MD [address] [place] [address] Medical Oncologist INTERNAL MEDICINE HEMATOLOGY & ONCOLOGY 04/03/24 Isamar Rangel MD [address] [place] [address] [address] [place] [address] Consulting Physician PULMONARY DISEASE 04/03/24
[2024-10-11 15:01] LABS: Hematocrit 45.8 % (42.0-52.0); Hemoglobin 14.9 g/dL (14.0-18.0); Mean Corpuscular HGB Conc 32.5 g/dl (32-36); Mean Corpuscular Volume 98.5 fl (80-100); Mean Platelet Volume 9.8 fl (7.4-10.4); Platelet Count Result 441 k/mm3 (150-375); Red Blood Count 4.65 M/mm3 (4.6-6.20); Red Cell Distribution Width 15.7 % (11.5-14.5); White Blood Count 11.3 K/mm3 (4.5-10.0)
[2024-10-11 15:12] LABS: Alanine Aminotransferase 12 U/L (6-50); Albumin Level 3.3 g/dL (3.5-5.1); Alkaline Phosphatase 84 U/L (38-126); Anion Gap 4 mmol/L (4-12); Aspartate Amino Transferase 22 U/L (17-59); Bilirubin,Total 0.4 mg/dL (0.2-1.3); Blood Urea Nitrogen 18 mg/dL (9-20); Calcium 8.6 mg/dL (8.4-10.2); Carbon Dioxide 28 mmol/L (22-30); Chloride 103 mmol/L (98-107); Estimated Glomerular Filt Rate > 60; Glucose 98 mg/dL (65-110); INR 1.1; Potassium 3.8 mmol/L (3.4-5.0); Prothrombin Time 14.4 Seconds (11.1-14.7); Sodium 135 mmol/L (137-145)
[2024-10-11 16:57] LABS: Vitamin D 25 Hydroxy 31.6 ng/mL
[2024-10-13 12:13] LABS: Alpha Fetoprotein Tumor Marker 2.5 ng/mL (<6.1)
== END 2024-10-11 14:16 | disposition home or self-care (01) ==
PROVIDERS: PCP Family Medicine; Referring Provider Nurse Practitioner Adult Health; Visit Provider Nurse Practitioner
DX: K70.30 Alcoholic cirrhosis of liver without ascites (principal); M79.672 Pain in left foot; I10 Essential (primary) hypertension; I50.9 Heart failure, unspecified; I73.9 Peripheral vascular disease, unspecified; I48.91 Unspecified atrial fibrillation; E55.9 Vitamin D deficiency, unspecified
CPT/HCPCS: 36415; 76705; 80053; 82105; 82306; 85027; 85610

== ENCOUNTER 2024-11-10 14:42 | Outpatient (CLI) | payer MEDICARE, SELFPAY ==
--- NOTE | ~2024-11-10 | XR_ITS ---
XR chest 2V 11/10/2024 15:17 Indication: Chronic obstructive pulmonary disease Procedure: 2 view chest Comparison: No prior studies for comparison. Findings: Heart size normal. Mild interstitial edema. Small pleural effusions. No pneumothorax. No ac cristal osseous abnormality. Impression: 1: Mild interstitial edema with small pleural effusions. Reviewed, dictated and finalized at location B. Impression: 1: Mild interstitial edema with small pleural effusions.
--- OUTSIDE RECORDS SUMMARY | 2024-11-10 14:50 | XMS_ITS | Clinical Summary ---
Author Organization [facility] Address [address] [place] [address] Phone Care Team Providers Care Successfactors Consultant Name Role Phone Unavailable Primary Care Provider [...] Tablet 1 Active naloxone (NARCAN) 4 mg/spray [place], Non-Aerosol EMERGENCY USE ONLY: Administer 1 spray [...] Description 11/16/2024 1:30 PM CDT Office Visit [facility] - [place] [address] [address] [place] [address] Jacobo Winkler MD [address] [facility] [address] [place] [address] Health Maintenance Due Date Last Done [...] (2 - Td or Tdap) 10/27/2030 Insurance [facility] Advance Directives For more information, please contact: [phone] * Full Code (Latest Code Status on File) Date Activated Date Inactivated Comments 10/28/2020 2:21 AM 10/29/2020 2:33 PM
--- OUTSIDE RECORDS SUMMARY | 2024-11-10 14:51 | XMS_ITS ---
Author Organization [facility] Address [address] [place], [place] [address] Care Team Providers Care Fuel Yard Operator Name Role Phone LORA MUSE Unavailable [phone] Ezequiel Anne Unavailable Unavailable REASON FOR VISIT Patient presents for at-risk foot care . The patient has painful toenails that cause difficulty with ambulation and shoegear. The onset is gradual Social History Tobacco Use: Social History Observation Description Date Details (start date - stop date) Unknown if ever smoked NA - NA Tobacco Control (Standard) Question Answer Notes Tobacco use: Unknown if ever smoked Vital Signs Height 72 in 10/24/2024 Weight 200 lbs 10/24/2024 BMI 27.12 kg/m2 10/24/2024 Height-cm 182.88 cm 10/24/2024 Weight-kg 90.72 kg 10/24/2024 Encounters Encounter Location Date Provider Diagnosis [facility] [place] [address] [facility] [address] [place], [place] [id number] 10/24/2024 LORA MUSE Tinea unguium B35.1 ; Pain in right toe(s) M79.674 ; Pain in left toe(s) M79.675 ; Atherosclerosis of [place] arteries of extremities with intermittent claudication, bilateral legs I70.213 and Acquired keratoderma L85.1 Assessments Encounter Date Diagnosis (ICD Code) Assessment Notes Treatment Notes Treatment Clinical Notes Section Notes 10/24/2024 Tinea unguium (ICD-10 - B35.1) FUNGAL TOENAILS: Discussed various treatment options for fungal toenails including debridement, topical antifungals, oral antifungals, toenail avulsion, or toenail matrixectomy. NAIL DEBRIDEMENT: Nails 1-5 Bilateral were debrided extensively with nail nippers and emery board, reducing length and girth to pink healthy tissue with any subungual debris and necrotic tissue removed 10/24/2024 Pain in right toe(s) (ICD-10 - M79.674) 10/24/2024 Pain in left toe(s) (ICD-10 - M79.675) 10/24/2024 Atherosclerosis of [place] arteries of extremities with intermittent claudication, bilateral legs (ICD-10 - I70.213) 10/24/2024 Acquired keratoderma (ICD-10 - L85.1) Plan Of Treatment Treatment Notes Assessment Notes Tinea unguium FUNGAL TOENAILS: Discussed various treatment [...] sooner if problems arise Provider Name:LORA MUSE, 03:00:00 PM, [address] [facility], [address], [id number], Progress Notes * WILLIAM DAVISOB:1955 (69 yo M)Acc No.[id number]:10/24/2024 Patient: MANI CANNON Provider: Jaye Muse DPM :1955 A ge:69 Y S ex:Male Date:10/24/2024 Address:[address] [place] [address] [id number] Subjective: * Chief Complaints: * 1 . Patient presents for at-risk foot care . The patient has painful toenails that cause difficulty with ambulation and shoegear. The onset [...] Date last seen by Dr. Anne was 08/2024., Initials mca. sample. * ROS: G eneral / Constitutional: Patient denies c hills, fatigue, fever. M usculoskeletal: Patient denies b roken foot bone, weakness. ? S kin: Patient denies u lcerations, warts. P atient complains of f ungal nails, discoloration, dry skin, calluses and corns. N eurologic: Patient denies b alance difficulty, confusion, difficulty speaking, dizziness. * Medical History: N o Known Allergies. * Social History: T obacco Use: T obacco Control (Standard) T obacco use: U nknown if ever smoked. Objective: * Vitals: S hoe Size: 12, [...] the left foot. Assessment: * Assessment: 1. T inea unguium - B35.1 (Primary) 2 . P ain in right toe(s) - M79.674? 3. P ain in left toe(s) - M79.675 4 . A therosclerosis of [place] arteries of extremities with intermittent claudication, bilateral legs - I70.213 5 . A cquired keratoderma - L85.1 Plan: * Treatment: * Immunizations: Immunization record has been reviewed and updated. * Follow Up: 1 0-12 Weeks (Reason: At Risk Foot care, sooner if problems arise) * Billing Information: * Visit Code: 91760 Office Visit, Est Pt., Level 3. * Procedure Codes: * Electronic signature of LORA MUSE DPM on 11/10/2024 at 02:50 PM CDT Sign off status: Pending * Provider: Jaye Muse DPM Date: 0 10/24/2024 Generated for Des rene/Rosa/Cathy on: 0 11/10/2024 02:50 PM CDT History and Physical Notes * [...] Date last seen by Dr. Anne was 08/2024., Initials mca sample Examination Category Sub-Category Detail Notes Category Not [...]
--- OUTSIDE RECORDS SUMMARY | 2024-11-10 14:51 | XMS_ITS | Patient Health Record ---
Author Organization [facility] Address [address] [place], [place] [phone] Care Team Providers Care Manager Beauty Name Role Phone BRYANTVIANEY CrewsIC Unavailable [phone] Ezequiel Anne Unavailable Unavailable Allergies No Known Allergies Reason For Referral No Information Immunizations Vaccine Route Administration Date Status Comme nts Influenza, quadrivalent, spl it, preservative free, 3 years or older Unknown 07/29/2022 Administered Influenza, quadrivalent, spl it, preservative free, 3 years or older Unknown 07/29/2022 Administered Moderna Covid-19 Vaccine 1st dose Unknown 07/18/2020 Ad ministered Moderna Covid-19 Vaccine 1st dose Unknown 08/15/2020 Ad ministered Tdap Unknown 10/27/2020 Administered Tdap Unknown 10/27/2020 Administered Tdap Unknown 10/27/2020 Administered Tdap Unknown 12/17/2022 Administered Social History Tobacco Use: Social History Observation Description Date Details (start date - stop date) Unknown if ever smoked NA - NA Tobacco Control (Standard) Question Answer Notes Tobacco use: Unknown if ever smoked Vital Signs Height-cm 182.88 cm 10/24/2024 Weight-kg 90.72 kg 10/24/2024 Height 72 in 10/24/2024 Weight 200 lbs 10/24/2024 BMI 27.12 kg/m2 10/24/2024 Encounters Encounter Location Date Provider Diagnosis [facility] [address] [facility] [address] [place], [place] [id number] 10/24/2024 LORA MUSE Tinea unguium B35.1 ; Pain in right toe(s) M79.674 ; Pain in left toe(s) M79.675 ; Atherosclerosis of [place] arteries of extremities with intermittent claudication, bilateral legs I70.213 and Acquired keratoderma L85.1 [facility] [address] [place], [place] [id number] 12/01/2023 LORA SNOOK Tinea unguium B35.1 ; Acquired keratosis [keratoderma] palmaris et plantaris L85.1 ; Atherosclerosis of [place] arteries of extremities with intermittent claudication, bilateral legs I70.213 ; Pain in right foot M79.671 and Pain in left foot M79.672 [facility] [address] [place], [place] [id number] 02/02/2024 LORA SNOOK Tinea unguium B35.1 ; Acquired keratosis [keratoderma] palmaris et plantaris L85.1 ; Atherosclerosis of [place] arteries of extremities with intermittent claudication, bilateral legs I70.213 ; Pain in right foot M79.671 and Pain in left foot M79.672 [facility] [address] [place], [place] [id number] 06/13/2024 LORA SNOOK Tinea unguium B35.1 ; Acquired keratosis [keratoderma] palmaris et plantaris L85.1 ; Atherosclerosis of [place] arteries of extremities with intermittent claudication, bilateral legs I70.213 ; Pain in right foot M79.671 and Pain in left foot M79.672 [facility] [address] [place], [place] [id number] 08/22/2024 LORA SNOOK Posterior tibial tendinitis, right leg M76.821 ; Tinea unguium B35.1 ; Pain in right toe(s) M79.674 ; Pain in left toe(s) M79.675 and Atherosclerosis of [place] arteries of extremities with intermittent claudication, bilateral [...] I educated the patient on its use. 10/24/2024 Tinea unguium (ICD-10 - B35.1) FUNGAL [...] in left toe(s) (ICD-10 - M79.675) 08/22/2024 Pain in right toe(s) (ICD-10 - M79.674) 06/13/2024 Atherosclerosis of [place] arteries of extremities with intermittent claudication, bilateral legs (ICD-10 - I70.213) 02/02/2024 Atherosclerosis of [place] arteries of extremities with intermittent claudication, bilateral legs (ICD-10 - I70.213) 12/01/2023 Atherosclerosis of [place] arteries of extremities with intermittent claudication, bilateral legs (ICD-10 - I70.213) 12/01/2023 Pain in right foot (ICD-10 - M79.671) 02/02/2024 Pain in right foot (ICD-10 - M79.671) 06/13/2024 Pain in right foot (ICD-10 - M79.671) 08/22/2024 Pain in left toe(s) (ICD-10 - M79.675) 10/24/2024 Atherosclerosis of [place] arteries of extremities with intermittent claudication, bilateral legs (ICD-10 - I70.213) 10/24/2024 Acquired keratoderma (ICD-10 - L85.1) 08/22/2024 Atherosclerosis of [place] arteries of extremities with intermittent claudication, bilateral legs (ICD-10 - I70.213) 06/13/2024 Pain in left foot (ICD-10 - M79.672) 02/02/2024 Pain in left foot (ICD-10 - M79.672) 12/01/2023 Pain in left foot (ICD-10 - M79.672) Plan Of Treatment Next Appt Details Provider Name:LORA MUSE, 03:00:00 PM, [address] [facility] [address], [place], [place], [id number], Insurance Providers Payer Name Payer Address Payer Phone Subscriber Number Group Number Insured Name Patient Relationship to Insured Coverage Start Date Coverage End Date [employer] [address] [place] [phone] [id number] MANI DAVIS Self - patient is the insured Medical (General) History Medical History History ICD Code No Known Allergies
--- OUTSIDE RECORDS SUMMARY | 2024-11-10 14:51 | XMS_ITS | Clinical Summary ---
Author Organization [facility] Address [address], [address] [place] [address] Phone Care Team Providers [employer] Programmer Name Role Phone Karina Mojica APRN, DECORATIVE ENGRAVER Primary Care Provide r Tomi Bermeo MD [...] 12/13/19 24 Active Vitamin D3 1.25 MG (53503 UT) Capsule TAKE 1 CAPSULE BY MOUTH ONCE A WEEK 01/25/20 24 Active ferrous sulfate 325 (65 Fe) MG Tablet TAKE 1 TABLET BY MOUTH EVERY DAY 30 Tablet 1 10/26/19 25 Active ferrous sulfate 325 (65 Fe) MG Tablet TAKE 1 TABLET BY MOUTH EVERY DAY 30 Tablet 1 08/31/19 25 025 Discontinued Active Problems Problem Noted Date [...] Encounters Date Type Department Care Team Description 11/09/2024 Telephone [facility] [address] [address] Tomi Bermeo MD Canopy Call / Weakness 10/23/2024 Refill [facility] [address] [address] Tomi Bermeo MD Medication Refill 08/30/2024 Refill [facility] [address] [address] Tomi eBrmeo MD Medication Refill from Last 3 Months [...] Comments Blood Pressure 116/70 05/18/2024 1:50 PM [facility]IE [facility]ARDENER Pulse 79 05/18/2024 1:50 PM DIE HARDENER Temperature 36.8 C (98.2 F) 05/18/2024 1:50 PM DIE HARDENER Respiratory Rate 18 05/18/2024 1:50 PM DIE HARDENER Oxygen Saturation 95% 05/18/2024 1:50 PM DIE HARDENER Inhaled Oxygen Concentration - - Weight 79.9 kg (176 lb 3.2 oz) 05/18/2024 1:50 P M D[facility] HARDENER Height 182.9 cm (6') 05/18/2024 1:50 PM DIE HARDENER Body Mass Index 23.9 05/18/2024 1:50 PM DIE HARDENER Plan of Treatment Upcoming Encounters Date Type Department Care Team (Late st Contact Info) Description 11/16/2024 2:00 PM CDT Office Visit [facility] [address] [address] Tomi Bermeo MD [address] [place] [id number] Health Maintenance Due Date Last Done Comments Pneumococcal Immunization (50+ years) (1 of 2 - PCV) 1973 Cologuard 1999 Colonoscopy 1999 Colorectal Cancer Screening 1999 Immunochemical Fecal Occult Blood 1999 Zoster Immunization (1 of 2) 02/28/2004 Respiratory Syncytial Virus (RSV) Immunization (Adult) (1 - Risk 60-74 years 1-dose series) 2014 Hepatitis B Immunization (2 of 3 - 19+ 3-dose series) 01/14/2023 12/17/2022 SARS-COV-2 Immunization (3 - season) 2024 08/15/2020, 08/15/2020, 07/18/2020, [...] ABDOMEN W/ CONTRAST Routine 07/01/2023 3:20 PM DIE HARDENER Liver lesion Anemia, unspecified type from Last 3 Months or Most Recently Relevant to Health Maintenance Results * CT ABDOMEN W/ CONTRAST (07/01/2023 3:20 PM DIE HARDENER) Anatomical Region Laterality Modality Abdomen N/A Computed Tomogra phy Narrative 07/01/2023 4:39 PM DIE HARDENER EXAMINATION: CT ABDOMEN W/ CONTRAST 07/01/2023 INDICATIONS: [...] Further evaluation with MRI could be obtained wichor simon. 3. Prominent upper abdominal lymph nodes are [...] Maintenance Insurance MEDICARE C [employer] Care Teams [employer] Programmer Relationship Specialty Start Date End Date Karina Mojica, SOLAR SALES MANAGER, DECORATIVE ENGRAVER [address] [place] [address] PCP - General Family Medicine 11/05/22 Tomi Bermeo MD [address] [place] [id number] Consulting Physician Oncology 02/16/23
--- OUTSIDE RECORDS SUMMARY | 2024-11-10 14:51 | XMS_ITS | Encounter Summary ---
Author Organization [facility] Address [address] [place] [address] Phone Care Team Providers Care Global Head [employer] Name Role Phone Karina Mojica APRN, OVERWEAVER Primary Care Provide r Tomi Bermeo MD Unavailable Reason for Visit * Reason Onset Date Comments Canopy Call / Weakness 11/09/2024 Encounter Details Date Type Department Care Team (Late st Contact Info) Description 11/09/2024 Telephone [facility] [address] [place] [address] Tomi Bermeo MD [address] [place], [place] [phone] Canopy Call / Weakness Social History Tobacco Use Types Packs/Day Years Used Date Smoking Tobacco: Every Day Cigarettes Smokeless Tobacco: Never Alcohol Use Standard Drinks/Week Comments Yes 42 (1 standard drink = 0.6 oz pu re alcohol) Sex and Gender Information Value Date Recorded Sex Assigned at Not on file Legal Sex Male 3:16 PM CDT Gender Identity Not on file Sexual Orientation Not on file documented as of this encounter Miscellaneous Notes * Telephone Encounter - Marlyn Schuster RN - 11/10/2024 10:23 AM CDT Spoke with patient's spouse Mona, relayed message from Dr. Bermeo below, pt voiced understanding and states if patient is the same when he wakes up, she thinks she will take him to the E.R. Mona also reports she received a call from the PCP office nurse this am and she is awaiting a callback from Karina Copeland CNP. * Telephone Encounter - Marlyn Schuster RN - 11/10/2024 10:23 AM CDT Images from the original note were not included. Tomi Bermeo MD to Wi BF 11/10/24 9:00 AM Needs ER if still HR elevated and not feeling well * Telephone Encounter - Marlyn Schuster RN - 11/09/2024 4:21 PM CDT Received a return call from patient's Mona, she states, patient could not make the lab appointment today d/t weakness, she could not get him to the car. She would like to cancel the lab appointment and reschedule, keep OV as scheduled. Mona reports patient did see his PCP Karina Mojica yesterday, she was able to get pt in W/C and expecting a call in the AM from PCP. Mona reports patient has not been eating or drinking well in the last 3 weeks, had an emesis approx 3 days ago on an empty stomach, also reports patient HR 135 with Hx of Afib, no SOB reported. Recommended patient go to E.R. Mona states, she will recheck HR first and then she will see. Please advise. * Telephone Encounter - Renetta Miller RN - 11/09/2024 4:12 PM CDT , Mona, is calling about 11/09 labs. Pt is very weak and unable to get out of the chair. He will not be at today's labs, and sheis wondering what she should do. Lvm to return call to office documented in this encounter Plan of Treatment Upcoming Encounters Date Type Department Care Team (Late st Contact Info) Description 11/16/2024 2:00 PM CDT Office Visit [facility] [address] [place] [phone] Tomi Bermeo MD [address] [place] [address] documented as of this encounter Visit Diagnoses Not on filedocumented in this encounter Care Teams Global Head [employer] Relationship Specialty Start Date End Date Karina Mojica APRN, OVERWEAVER [address] [place] [address] PCP - General Family Medicine 11/05/22 Tomi Bermeo MD [address] [place] [id number] Consulting Physician Oncology 02/16/23 documented as of this encounter
== END 2024-11-10 14:43 | disposition home or self-care (01) ==
PROVIDERS: PCP Family Medicine; Visit Provider Nurse Practitioner Family
DX: J44.9 Chronic obstructive pulmonary disease, unspecified (principal); R05.9 Cough, unspecified; R06.02 Shortness of breath; J90 Pleural effusion, not elsewhere classified
CPT/HCPCS: 71046